=== PATIENT | female | born 1940 | race Caucasian/White ===

== ENCOUNTER 2016-10-31 11:50 | Inpatient (IN) ==
[2016-10-31 12:26] LABS: Basophils % 0.1 %; Eosinophils # 0.2 K/mcL (0.0-0.6); Eosinophils % 1.5 %; Hematocrit 32.1 % (35.3-44.9); Hemoglobin 10.8 g/dL (11.5-15.4); Immature Granulocytes % 0.5 % (0-4); Lymphocytes # 1.9 K/mcL (0.6-4.6); Lymphocytes % 19.4 %; Mean Corpuscular HGB Conc 33.6 g/dL (31.6-35.5); Mean Corpuscular Hemoglobin 30.3 pg (28.0-33.3); Mean Corpuscular Volume 90.2 fL (83.0-100.0); Mean Platelet Volume 9.2 fL (9.4-12.4); Monocytes # 0.5 K/mcL (0.0-1.3); Monocytes % 5.4 %; Neutrophils # 7.1 K/mcL (1.6-8.9); Platelet Count 207 K/mcL (140-400); Red Blood Count 3.56 M/mcL (3.82-4.97); Segmented Neutrophils % 73.1 %
[2016-10-31 12:31] LABS: INR 1.1; Prothrombin Time 11.5 Seconds (9.4-12.1)
[2016-10-31 12:33] LABS: Activated Partial Thrombo Time 26.5 Seconds (26.0-36.0)
[2016-10-31 12:49] LABS: Potassium 4.8 mEq/L (3.5-4.5)
--- NOTE | 2016-10-31 12:53 | Emergency Department Note ---
Disposition Clinical Impression: Altered mental status Disposition: Admitted As Inpatient Neuro HPI - General Chief Complaint: ED Neuro Symptoms/Deficit Stated Complaint: R side facial droop Time Seen by Provider: 10/31/16 11:54 Source: EMS Limitations: altered mental status Nursing Notes Reviewed: Yes Vital Signs Reviewed: Yes - History of Present Illness HPI Narrative: Patient presents with complaint altered mental status. Per report the son states the patient is acting normal when he left this morning for dialysis at 5: 30 AM. When he returned and 9:30 the patient was less responsive and had a weakness of the right side. EMS notes patient had a right-sided facial droop and was not responding as well. Per my examination. Patient was following commands did not have any facial droop and had weakness in the right lower extremity. Patient denies chest pain is shortness of breath. Patient is normally alert and oriented but currently is acting abnormal and agitated. Patient continued to try to get out of bed and not cooperative with staff. Patient is moving all of her limbs currently and has no facial droop currently - Related Data Home Medications: Home Medications Medication Instructions Recorded Confirmed Insulin ASPART [NovoLOG] 5 unit SQ TID 07/30/15 10/31/16 Montelukast [Singulair] 10 mg PO QPM 07/30/15 10/31/16 Topiramate [Topamax] 50 mg PO DAILY 07/30/15 10/31/16 TraZODone 50 mg PO HS PRN 07/30/15 10/31/16 Zolpidem [Ambien] 5 mg PO HS PRN 07/30/15 10/31/16 Albuterol Sulfate [Albuterol 2 puff IH Q6H PRN 09/08/16 10/31/16 Inhaler] Aripiprazole [Abilify] 2 mg PO DAILY 09/08/16 10/31/16 Atorvastatin [Lipitor] 40 mg PO HS 09/08/16 10/31/16 Clopidogrel [Plavix] 75 mg PO DAILY 09/08/16 10/31/16 Colesevelam [Welchol] 1,875 mg PO BIDWM 09/08/16 10/31/16 Esomeprazole Magnesium [Nexium] 40 mg PO BID 09/08/16 10/31/16 Gabapentin [Neurontin] 600 mg PO DAILY 09/08/16 10/31/16 Guaifenesin [Mucinex] 600 mg PO Q12H 09/08/16 10/31/16 Insulin DETEMIR [Levemir Flextouch] 30 unit SQ HS 09/08/16 10/31/16 Loratadine [Allergy Relief] 10 mg PO DAILY 09/08/16 10/31/16 Metoclopramide [Reglan] 10 mg PO QIDAC 09/08/16 10/31/16 Metoprolol [Lopressor] 25 mg PO BID 09/08/16 10/31/16 Pioglitazone HCl [Actos] 45 mg PO DAILY 09/08/16 10/31/16 Sodium Bicarbonate 650 mg PO BID 09/08/16 10/31/16 Venlafaxine HCl [Venlafaxine HCl 150 mg PO DAILY 09/08/16 10/31/16 ER] Previous Rx's Medication Instructions Recorded Aspirin 81 mg PO DAILY #90 tab.chew 11/21/15 Docusate [Colace] 100 mg PO BID #60 capsule 09/08/16 HYDROcodone/Acet 5/325 mg [[place] 1 tab PO Q4H PRN #10 tab 09/08/16 5-325 mg] Ondansetron ODT [Zofran ODT] 4 mg SL Q8HR #14 tab.rapdis 10/24/16 Allergies/Adverse Reactions: Allergies Allergy/AdvReac Type Severity Reaction Status Date / Time Iodinated Contrast Media - Allergy Anaphylaxis Verified 09/08/16 08:19 Oral and [Iodinated Contrast Media - IV Dye] codeine AdvReac Gastrointestinal Verified 09/08/16 08:19 Upset Limitations: ROS unobtainable due to patients medical condition Past Medical History - Past Medical History Source: patient, nursing notes reviewed Medical history: Reports: arthritis, asthma, CVA, diabetes, GERD, hyperlipidemia , hypertension, osteoporosis, peripheral artery disease, seizures, TIA, other Surgical history: Reports: other Psychiatric history: Reports: anxiety LICENSED CLINICAL PSYCHOLOGIST history: Reports: bilateral tubal ligation - Social History Smoking Status: Never smoker Smokeless Tobacco Status: No Alcohol use: Reports: none Drug use: Reports: none Physical Exam - General Limitations: altered mental status General appearance: alert - Head Head exam: atraumatic, normocephalic, normal inspection - Eye Eye exam: Present: normal appearance, PERRL, EOMI - ENT ENT exam: normal exam, normal oropharynx, mucous membranes moist - Neck Neck exam: Present: normal inspection, full ROM - Chest Chest inspection: Present: normal inspection, symmetric chest wall rise - Respiratory Respiratory exam: Present: normal lung sounds bilaterally - Cardiovascular Cardiovascular exam: Present: regular rate, normal rhythm, normal heart sounds - Abdominal Exam Abdominal exam: Present: soft, Non-Tender. Absent: tenderness, distention, guarding, rebound, rigidity - Extremities Exam Extremities exam: Present: normal inspection, full ROM. Absent: tenderness, pedal edema - Back Exam Back exam: Absent: tenderness, CVA tenderness (R), CVA tenderness (L) - Neurological Exam Neurological exam: Present: other (Limited secondary patient will status) - Psychiatric Psychiatric exam: Present: other (Limited secondary patient will status) - Skin Skin exam: Present: warm, dry, intact, normal color Course Vital Signs Temperature 98.3 F 10/31/16 11:54 Pulse Rate 90 10/31/16 11:54 Respiratory Rate 18 10/31/16 11:54 Blood Pressure 158/66 10/31/16 11:54 O2 Sat by Pulse Oximetry 98 10/31/16 11:54 Temperature 99.1 F 10/31/16 20:06 Pulse Rate 122 10/31/16 20:06 Respiratory Rate 20 10/31/16 20:06 Blood Pressure 149/72 10/31/16 20:06 O2 Sat by Pulse Oximetry 96 10/31/16 20:06 Oxygen Delivery Oxygen Delivery Room Air Neuro Symptoms/Deficit - Differential Diagnosis Likely: cerebrovascular accident, subarachnoid hemorrhage, transient cerebral ischemia, peripheral neuropathy - Lab Data Lab results reviewed: Yes I reviewed the patient's lab results. Result diagrams: 10/31/16 12:10 10/31/16 12:10 Lab Results 10/31/16 10/31/16 10/31/16 Range/Units 12:07 12:10 12:10 WBC 9.8 (4.3-11.1) K/mcL RBC 3.56 L (3.82-4.97) M/mcL Hgb 10.8 L (11.5-15.4) g/dL Hct 32.1 L (35.3-44.9) % MCV 90.2 (83.0-100.0) fL MCH 30.3 (28.0-33.3) pg MCHC 33.6 (31.6-35.5) g/dL RDW 13.0 (11.5-14.5) % Plt Count 207 (140-400) K/mcL MPV 9.2 L (9.4-12.4) fL Immature Gran % 0.5 (0-4) % Seg Neutrophils % 73.1 % Lymphocytes % 19.4 % Monocytes % 5.4 % Eosinophils % 1.5 % Basophils % 0.1 % Neutrophils # 7.1 (1.6-8.9) K/mcL Lymphocytes # 1.9 (0.6-4.6) K/mcL Monocytes # 0.5 (0.0-1.3) K/mcL Eosinophils # 0.2 (0.0-0.6) K/mcL Basophils # 0.0 (0.0-0.2) K/mcL PT 11.5 (9.4-12.1) Seconds INR 1.1 APTT 26.5 (26.0-36.0) Seconds Sodium (136-145) mEq/L Potassium (3.5-4.5) mEq/L Chloride (98-109) mEq/L Carbon Dioxide (19-29) mEq/L BUN (7-20) mg/dL Creatinine (0.57-1.11) mg/dL Est GFR ( Amer) (> 60) Est GFR (Non-Af Amer) (> 60) BUN/Creatinine Ratio (6-26) Glucose (70-99) mg/dL POC Glucose 231 H (58-89) Calculated Osmolality (280-300) Calcium (8.6-10.8) mg/dL Ammonia (18-72) mcmol/L Troponin I (0-0.03) ng/mL Urine Color (Yellow) Urine Clarity (Clear) Urine pH (5.0-8.0) pH Units Ur Specific [place] (1.010-1.025) Urine Protein (Neg-Trace) mg/dL Urine Glucose (UA) (Normal) mg/dL Urine Ketones (Negative) mg/dL Urine Blood (Negative) Urine Nitrite (Negative) Urine Bilirubin (Negative) Urine Urobilinogen (Normal) mg/dL Ur Leukocyte Esterase (Negative) Urine Microscopic RBC (0-3) per hpf Urine Microscopic WBC (0-3) per hpf Ur Squamous Epith Cells (None-Few) per lpf Urine Bacteria (None-Few) per hpf Hyaline Casts (None-Few) per lpf Ur Culture Indicated? (NO) 10/31/16 10/31/16 10/31/16 Range/Units 12:10 12:10 15:08 WBC (4.3-11.1) K/mcL RBC (3.82-4.97) M/mcL Hgb (11.5-15.4) g/dL Hct (35.3-44.9) % MCV (83.0-100.0) fL MCH (28.0-33.3) pg MCHC (31.6-35.5) g/dL RDW (11.5-14.5) % Plt Count (140-400) K/mcL MPV (9.4-12.4) fL Immature Gran % (0-4) % Seg Neutrophils % % Lymphocytes % % Monocytes % % Eosinophils % % Basophils % % Neutrophils # (1.6-8.9) K/mcL Lymphocytes # (0.6-4.6) K/mcL Monocytes # (0.0-1.3) K/mcL Eosinophils # (0.0-0.6) K/mcL Basophils # (0.0-0.2) K/mcL PT (9.4-12.1) Seconds INR APTT (26.0-36.0) Seconds Sodium 136 (136-145) mEq/L Potassium 4.8 H (3.5-4.5) mEq/L Chloride 106 (98-109) mEq/L Carbon Dioxide 19 (19-29) mEq/L BUN 30 H (7-20) mg/dL Creatinine 1.93 H (0.57-1.11) mg/dL Est GFR ( Amer) 31 L (> 60) Est GFR (Non-Af Amer) 25 L (> 60) BUN/Creatinine Ratio 16 (6-26) Glucose 213 H (70-99) mg/dL POC Glucose (58-89) Calculated Osmolality 295 (280-300) Calcium 9.0 (8.6-10.8) mg/dL Ammonia (18-72) mcmol/L Troponin I 0.00 (0-0.03) ng/mL Urine Color Yellow (Yellow) Urine Clarity Cloudy A (Clear) Urine pH 5.0 (5.0-8.0) pH Units Ur Specific [place] 1.024 (1.010-1.025) Urine Protein >=1000 H (Neg-Trace) mg/dL Urine Glucose (UA) 100 H (Normal) mg/dL Urine Ketones Negative (Negative) mg/dL Urine Blood Moderate H (Negative) Urine Nitrite Negative (Negative) Urine Bilirubin Negative (Negative) Urine Urobilinogen Normal (Normal) mg/dL Ur Leukocyte Esterase Negative (Negative) Urine Microscopic RBC 0-3 (0-3) per hpf Urine Microscopic WBC 0-3 (0-3) per hpf Ur Squamous Epith Cells Many H (None-Few) per lpf Urine Bacteria None Seen (None-Few) per hpf Hyaline Casts Few (None-Few) per lpf Ur Culture Indicated? NO (NO) 10/31/16 Range/Units 19:05 WBC (4.3-11.1) K/mcL RBC (3.82-4.97) M/mcL Hgb (11.5-15.4) g/dL Hct (35.3-44.9) % MCV (83.0-100.0) fL MCH (28.0-33.3) pg MCHC (31.6-35.5) g/dL RDW (11.5-14.5) % Plt Count (140-400) K/mcL MPV (9.4-12.4) fL Immature Gran % (0-4) % Seg Neutrophils % % Lymphocytes % % Monocytes % % Eosinophils % % Basophils % % Neutrophils # (1.6-8.9) K/mcL Lymphocytes # (0.6-4.6) K/mcL Monocytes # (0.0-1.3) K/mcL Eosinophils # (0.0-0.6) K/mcL Basophils # (0.0-0.2) K/mcL PT (9.4-12.1) Seconds INR APTT (26.0-36.0) Seconds Sodium (136-145) mEq/L Potassium (3.5-4.5) mEq/L Chloride (98-109) mEq/L Carbon Dioxide (19-29) mEq/L BUN (7-20) mg/dL Creatinine (0.57-1.11) mg/dL Est GFR ( Amer) (> 60) Est GFR (Non-Af Amer) (> 60) BUN/Creatinine Ratio (6-26) Glucose (70-99) mg/dL POC Glucose (58-89) Calculated Osmolality (280-300) Calcium (8.6-10.8) mg/dL Ammonia 32 (18-72) mcmol/L Troponin I (0-0.03) ng/mL Urine Color (Yellow) Urine Clarity (Clear) Urine pH (5.0-8.0) pH Units Ur Specific [place] (1.010-1.025) Urine Protein (Neg-Trace) mg/dL Urine Glucose (UA) (Normal) mg/dL Urine Ketones (Negative) mg/dL Urine Blood (Negative) Urine Nitrite (Negative) Urine Bilirubin (Negative) Urine Urobilinogen (Normal) mg/dL Ur Leukocyte Esterase (Negative) Urine Microscopic RBC (0-3) per hpf Urine Microscopic WBC (0-3) per hpf Ur Squamous Epith Cells (None-Few) per lpf Urine Bacteria (None-Few) per hpf Hyaline Casts (None-Few) per lpf Ur Culture Indicated? (NO) - Radiology Data Radiology results reviewed: Yes I reviewed the patient's radiology results. Head CT 10/31/16 11:54 IMPRESSION: Severely limited by motion artifacts. No acute intracranial abnormality. Further evaluation with MRI brain is recommended. Mild parenchymal volume loss. Mild chronic microvascular disease. D/ / Usama Oconnell MD / Usama Oconnell MD Interpreting Provider: Usama Oconnell MD Chest X-Ray 10/31/16 12:54 IMPRESSION: No acute cardiopulmonary process. D/ / 10/31/2016 13:41:20 Demarco Conley MD / Swati Cedeno Interpreting Provider: Demarco Conley MD - EKG Data EKG shows normal: sinus rhythm Rate: normal Rhythm: NSR TPA Checklist - LKW: 3-4.5 hrs Add. Contraindications Patient/family understanding: The patient/family members have been counseled and understood the risk, benefit , and alternatives of treatment.
[2016-10-31] MEDS ORDERED: Haloperidol Lactate 5 MG/ML VIAL IM ONE (13:46)
[2016-10-31] MEDS ORDERED: *HR* LORazepam 2 MG/ML VIAL IVP ONE ×2 (14:53→18:53)
[2016-10-31 15:16] LABS: Bilirubin,Urine Negative (Negative); Blood,Urine Moderate (Negative); Clarity,Urine Cloudy (Clear); Color,Urine Yellow (Yellow); Glucose,Urine (UA) 100 mg/dL (Normal); Ketones,Urine Negative (Negative); Leukocyte Esterase,Urine Negative (Negative); Nitrite,Urine Negative (Negative); Protein,Urine >=1000 mg/dL (Neg-Trace); Specific Gravity,Urine 1.024 (1.010-1.025); Urobilinogen,Urine Normal (Normal)
[2016-10-31 15:18] LABS: Bacteria,Urine None Seen per hpf (None-Few); Hyaline Casts,Urine Few per lpf (None-Few); RBC,Urine 0-3 per hpf (0-3); Squamous Epithelial Cell,Urine Many per lpf (None-Few); WBC,Urine 0-3 per hpf (0-3)
[2016-10-31] MEDS ORDERED: *HR* Dextrose 50 % in Water (Syg) 50 ML SYRINGE IVP PRN (18:22)
[2016-10-31] MEDS ORDERED: Dextrose Gel 15 GM PO PRN ×2 (18:22)
[2016-10-31] MEDS ORDERED: D5% in Water 1,000 ML IVC PRN (18:22)
[2016-10-31] MEDS ORDERED: 0.9 % Sodium Chloride 1,000 ML IVC SCH (18:30)
[2016-10-31] MEDS ORDERED: Haloperidol Lactate 5 MG/ML VIAL IVP ONE (18:54)
[2016-10-31 22:28] LABS: Albumin/Globulin Ratio 1.1 (1.1-2.2); Bilirubin,Direct 0.1 mg/dL (0.0-0.5); Bilirubin,Indirect 0.1 mg/dL (0.0-1.2); Bilirubin,Total 0.2 mg/dL (0.2-1.2); Globulin 3.7 g/dL (2.4-3.5); Magnesium 1.4 mg/dL (1.6-2.6); Total Protein 7.7 g/dL (6.0-8.3)
--- NOTE | 2016-10-31 23:53 | Internal Med History&Physical ---
Date of Encounter: 10/31/16 Time of Encounter: 23:51 Assessment and Plan (1) TIA (transient ischemic attack) Current visit: Yes Status: Acute The patient was noted to have right facial droop and right-sided weakness at home. However that was not noted in the emergency department. MRI of the brain is negative for acute infarct. Echocardiogram and carotid Dopplers requested. Check lipid panel. Neurology consultation; PT / speech tehrapy eval Qualifiers: Transient cerebral ischemia type: unspecified Qualified Code(s): G45.9 - Transient cerebral ischemic attack, unspecified (2) Agitation Current visit: Yes Status: Acute Pt was treated with haloperidol. Ammonia level is normal. Sitter in place. Monitor. Neurology consult (3) CKD (chronic kidney disease) Current visit: Yes Status: Chronic Monitor renal function. supportive care. 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 On IV fluids. If not improving, consider further w/u (6) DVT prophylaxis Current visit: Yes Status: Acute SubQ Heparin Internal Medicine - H&P: HPI Chief complaint: confusion Admitted From: Emergency Dept Plans for Post Hospital Care: Home History of present illness: Ms. Rain is a 75 year old female With Past medical history significant for CVA , diabetes, GERD, hyperlipidemia, hypertension, osteoporosis, peripheral artery disease, seizures - Patient presents with complaint altered mental status. Pt received lorazepam and haloperidol for agitation, late in the evening and pt is somnolent and is not able to give nay clinical details. I have reviewed the details from emergency department Apparently, the patient was acting normal when the son left this morning for dialysis at 5:30 AM. When he returned at 9: 30, the patient was less responsive and had a weakness of the right side. Apparently, per the EMS notes patient had a right-sided facial droop and was not responding as well. Per the Er physicians exam, there was no facial droop or weakness in the right lower extremity. CT head done in the ER reported motion artefact; no acute intracranial abnormality. Patient is admitted to the hospitalist service for further workup and management. Past Med Surg Social Fam HX - Past Medical History Medical history: arthritis, asthma, CVA, diabetes, GERD, hyperlipidemia, hypertension, osteoporosis, peripheral artery disease, seizures, TIA, other Psychiatric history: anxiety - Past Surgical History Surgical History: other - Social History Smoking Status: Never smoker Smokeless Tobacco Status: No Alcohol use: none Drug use: none - Family History Father Living Status: Hx Family Cardiac Disorders: Yes Brother Living Status: Sister Living Status: Hx Family Cardiac Disorders: Yes Mother Living Status: Hx Family Cardiac Disorders: Yes Hx Family Cancer: Yes Internal Medicine - H&P: Meds Insulin ASPART [NovoLOG] 5 unit SQ TID 07/30/15 [History] Montelukast [Singulair] 10 mg PO QPM 07/30/15 [History] Topiramate [Topamax] 50 mg PO DAILY 07/30/15 [History] TraZODone 50 mg PO HS PRN 07/30/15 [History] Zolpidem [Ambien] 5 mg PO HS PRN 07/30/15 [History] Aspirin 81 mg PO DAILY #90 tab.chew 11/21/15 [Rx] Albuterol Sulfate [Albuterol Inhaler] 2 puff IH Q6H PRN 09/08/16 [History] Aripiprazole [Abilify] 2 mg PO DAILY 09/08/16 [History] Atorvastatin [Lipitor] 40 mg PO HS 09/08/16 [History] Clopidogrel [Plavix] 75 mg PO DAILY 09/08/16 [History] Colesevelam [Welchol] 1,875 mg PO BIDWM 09/08/16 [History] Docusate [Colace] 100 mg PO BID #60 capsule 09/08/16 [Rx] Esomeprazole Magnesium [Nexium] 40 mg PO BID 09/08/16 [History] Gabapentin [Neurontin] 600 mg PO DAILY 09/08/16 [History] Guaifenesin [Mucinex] 600 mg PO Q12H 09/08/16 [History] HYDROcodone/Acet 5/325 mg [[place] 5-325 mg] 1 tab PO Q4H PRN #10 tab 09/08/16 [Rx ] Insulin DETEMIR [Levemir Flextouch] 30 unit SQ HS 09/08/16 [History] Loratadine [Allergy Relief] 10 mg PO DAILY 09/08/16 [History] Metoclopramide [Reglan] 10 mg PO QIDAC 09/08/16 [History] Metoprolol [Lopressor] 25 mg PO BID 09/08/16 [History] Pioglitazone HCl [Actos] 45 mg PO DAILY 09/08/16 [History] Sodium Bicarbonate 650 mg PO BID 09/08/16 [History] Venlafaxine HCl [Venlafaxine HCl ER] 150 mg PO DAILY 09/08/16 [History] Ondansetron ODT [Zofran ODT] 4 mg SL Q8HR #14 tab.rapdis 10/24/16 [Rx] Allergies Iodinated Contrast Media - Oral and [Iodinated Contrast Media - IV Dye] Allergy (Verified 09/08/16 08:19) Anaphylaxis codeine Adverse Reaction (Verified 09/08/16 08:19) Gastrointestinal Upset ROS unobtainable: due to mental status - Constitutional Vitals: Temp Pulse Resp BP Pulse Ox 98.7 F 127 20 149/64 97 10/31/16 23:33 10/31/16 23:33 10/31/16 23:33 10/31/16 23:33 10/31/16 23:33 Exam: General: Somnolent, unable to follow commands. HEENT: No conjunctival palor or scleral icterus. Pupils normal size, reacting to light Neck: No obvious neck swellings Lungs: Clear to auscultation Cardiac: Regular rate and rhythm. No significant murmurs Abdomen: Soft, non tender. Bowel sounds present Genitourinary: werner catheter present Neurological: Somnolent. Not able to follow commands. Able to spontaneously move the extremities. Psych: Somnolent Extremities: Minimal leg edema Skin: No generalized rash Internal Med - H&P Results - Labs CBC & Chem 7: 10/31/16 12:10 11/01/16 07:10 Labs: Liver Function 10/31/16 Range/Units 19:05 Total Bilirubin 0.2 (0.2-1.2) mg/dL Direct Bilirubin 0.1 (0.0-0.5) mg/dL AST 26 (5-34) Units/L ALT 24 (0-55) Units/L Alkaline Phosphatase 93 (38-126) Units/L Albumin 4.0 (3.5-5.0) g/dL - EKG Data -: EKG Interpreted by Myself EKG shows normal: sinus rhythm Rate: tachycardia - Impressions ITS Impressions ITS Impressions Head CT 10/31/16 11:54 IMPRESSION: Severely limited by motion artifacts. No acute intracranial abnormality. Further evaluation with MRI brain is recommended. Mild parenchymal volume loss. Mild chronic microvascular disease. D/ / Usama Oconnell MD / Usama Oconnell MD Interpreting Provider: Usama Oconnell MD Chest X-Ray 10/31/16 12:54 IMPRESSION: No acute cardiopulmonary process. D/ / 10/31/2016 13:41:20 Demarco Conley MD / Swati Cedeno Interpreting Provider: Demarco Conley MD Brain MRI 10/31/16 19:26 IMPRESSION: No acute infarct. D/ / Adán Montano MD / Adán Montano MD Interpreting Provider: Adán Montano MD
[2016-11-01] MEDS ORDERED: Magnesium Sulfate 2 GM in D5% in Water 100 ML IVPB ONE (00:01)
[2016-11-01] MEDS ORDERED: traZODone 50 MG TABLET PO PRN (00:08)
[2016-11-01] MEDS: Insulin LISPRO 300 UNITS/3 ML VIAL SQ SCH ×4 (00:47→17:54)
[2016-11-01] MEDS: 0.9 % Sodium Chloride 1,000 ML IVC SCH (00:49)
[2016-11-01] MEDS: *HR* Heparin 5,000 UNIT/ML VIAL SQ SCH ×3 (06:38→22:59)
--- NOTE | 2016-11-01 06:45 | Carotid Imaging Report ---
Carotid Duplex Patient Name:Mamta Rain Order Number:[id number] Procedure Date:10/31/2016 Date:1940ge:75 yrs Gender:Female Lt BP:149 / 72 mmHg Rt.BP:149 / 72 mmHgHeart Rate: Location:[facility] Room #: 2A32 Peripatologist:Margi Briceño Referring MD:Estefania Lynne DO engineering design supervisor:Demarco Trevizo MD Reading MD:Giancarlo Hernandez MD Primary Indications:altered mental status, concern for stroke Risk Factors Yes/No Hypertension Hypercholesterolemia Diabetes Hx of CVA Impressions: The right common carotid is patent. Unable to assess the right internal carotid or left carotid arteries due to patient motion. Recommendations: Consider imaging with CT angiogram or MR angiogram if clinically indicated. Carotid Results Right PSV EDV Assessment Proximal CCA 91 12 Normal Mid CCA 89 14 Normal Distal CCA 84 14 Normal Bifurcation 89 17 Normal ECA 113 10 Normal Ratio's Updated by Giancarlo Hernandez MD on 11/01/2016 6:39:03 AM electronically signed on 11/01/2016 6:39:20 AM with status of Final
[2016-11-01 07:51] LABS: Amphetamine Screen,Urine Negative ng/mL (Cutoff=1000); Barbiturate Screen,Urine Negative ng/mL (Cutoff=200); Benzodiazepines Screen,Urine Negative ng/mL (Cutoff=200); Cannabinoid Screen,Urine Negative ng/mL (Cutoff = 50); Cocaine Screen,Urine Negative ng/mL (Cutoff= 300); Opiate Screen,Urine Negative ng/mL (Cutoff=300); Phencyclidine Screen,Urine Negative ng/mL (Cutoff=25)
[2016-11-01 08:02] LABS: Calcium 9.1 mg/dL (8.6-10.8); Magnesium 1.9 mg/dL (1.6-2.6); Potassium 4.2 mEq/L (3.5-4.5)
[2016-11-01] MEDS: Acetaminophen 650 MG RECTAL SUPP RC PRN ×2 (08:11→17:55)
--- NOTE | 2016-11-01 08:13 | ECHO - Doppler Report ---
Echocardiogram Name: Mamta Rain Date of Study: 10/31/2016 Date: 1940 Ht: 66.0 in Medical Record#: [id number] Age: 75 Wt: 237.0 lb Gender: Female BSA: 2.15 Order #: [id number] Location: [facility] Room #: [id number] Reading Physician: Mandeep Sumner MD, [facility] Cheesemaking Laborer: Margi Briceño Ordering Physician: Estefania Lynne DO Primary Physician: Demarco Trevizo MD Indications: Altered mental status, Concern for stroke Impressions: Suboptimal quality due to clinical status. Patient was constantly moving around during the study. Sinus tachycardia. Heart rate was in the 110's to 120's during this study. Normal left ventricular systolic function, LVEF 70-75%. Normal right ventricular size and function. No significant valvular dysfunction. Left Ventricular Wall Motion: Rest Echo Findings All wall segments showed normal motion. Findings: Study Quality * Suboptimal quality due to clinical status. Patient was constantly moving around during the study. ECG Findings * Sinus tachycardia. Heart rate was in the 110's to 120's during this study. Left Ventricle * Normal left ventricular systolic function, LVEF 70-75%. * Normal LV chamber size and wall thickness. * Indeterminate diastolic function. Right Ventricle * Normal right ventricular size and function. Left Atrium * Normal left atrial size. Right Atrium * Normal right atrial size. Aortic Valve * Aortic valve not well visualized. * Normal aortic valve function. Mitral Valve * Normal mitral valve structure and function. Pulmonic Valve * Pulmonic valve not well visualized. * Normal pulmonic valve function. Tricuspid Valve * Tricuspid valve not well visualized. * Normal tricuspid valve function. * Unable to estimate RVSP due to lack of TR jet. Aorta * Normally sized aortic root. Pericardium * There is no pericardial effusion present. IVC * The IVC is not well evaluated. History Hypertension Diabetes Hypercholesteremia Family History of CAD 11/21/2015 a Previous Echo was performed. Measurements: BP: 149/ 72 2D Normal Values RVIDd: 2.60 cm IVSd: .90 cm 0.6 - 1.0 cm LVIDd: 4.50 cm 3.7 - 5.6 cm LVPWd: 1.00 cm 0.6 - 1.1 cm LVIDs: 2.70 cm 1.5 - 3.6 cm AO: 2.90 cm < 4.0 cm %FS: 40.00 cm >25 % LA volume: 36 Updated by Mandeep Sumner MD, [facility] on 11/01/2016 8:06:54 AM electronically signed on 11/01/2016 8:07:40 AM with status of Final Wall Motion [place]: 1=Normal, 2=Hypokinesis, 3=Akinesis, 4=Dyskinesis, 5=Aneurysmal, 6=Hyperkinetic, X=Not Visualized (Blank)=Missing
[2016-11-01] MEDS ORDERED: ARIPiprazole 2 MG TABLET PO SCH (09:00)
[2016-11-01] MEDS ORDERED: Aspirin 81 MG TAB.CHEW PO SCH (09:00)
--- NOTE | 2016-11-01 10:16 | Internal Med Progress Note ---
<Tammy Lynne - Last Filed: 11/01/16 13:35> Date of Encounter: 11/01/16 Time of Encounter: 10:11 - Assessment and plan (1) Fever Current Visit: Yes Status: Acute Assessment and plan: Patient febrile this morning to 102.2F Chest xray with no sign of focal process Urinalysis negative Will obtain blood cultures x 2 Will give toradol IM for fever Concern for underlying BODY PIERCER infectious process given sudden onset of fever and mental status changes. Qualifiers: Fever type: unspecified Qualified Code(s): R50.9 - Fever, unspecified (2) Altered mental status Current Visit: Yes Status: Acute Assessment and plan: Unclear etiology. Differential includes infectious vs bacteremia vs status epilepticus vs serotonin syndrome vs other CT head negative MRI head negative No evidence of increased ammonia or liver dysfunction No leukocytosis No evidence of infection on chest xray or urinalysis Carotid doppler limited due to patient motion Echocardiogram appears normal however limited by motion artifact. Given fever, concern for underlying BODY PIERCER infection. Will treat empirically with vancomycin, ampicillin, ceftriaxone and acyclovir. Neurology consulted, plan for EEG and lumbar puncture Will place patient in soft restraints Qualifiers: Altered mental status type: unspecified Qualified Code(s): R41.82 - Altered mental status, unspecified (3) Agitation Current Visit: Yes Status: Acute Assessment and plan: Treatment as per altered mental status. (4) Diabetes mellitus Current Visit: Yes Status: Chronic Assessment and plan: Chronic. Accucheck every 6 hours while NPO Low dose sliding scale with novolog every 6 hours while NPO Will plan to transition to basal insulin with meal time dosing once patient is able to tolerate oral intake Qualifiers: Diabetes mellitus type: type 2 Diabetes mellitus complication status: with unspecified complications Diabetes mellitus longterm insulin use: with longterm use Qualified Code(s): E11.8 - Type 2 diabetes mellitus with unspecified complications; Z79.4 - MCC (current) use of insulin (5) CKD (chronic kidney disease) stage 3, GFR 30-59 ml/min Current Visit: No Status: Chronic Assessment and plan: Chronic. BUN and creatinine stable Continue to monitor (6) History of CVA (cerebrovascular accident) Current Visit: No Status: Chronic Assessment and plan: History of prior CVAin April 2016. No residual deficits per family. Was treated at [facility]. (7) Seizure disorder Current Visit: No Status: Chronic Assessment and plan: Chronic. Neurology consulted. Appreciate input and expertise. Planning on EEG. Continue home medications. - Subjective Interval history: Patient seen and examined this morning. Due to patient's mental status, information gathered from chart review and who was present at bedside. Per , patient was her normal self when he left for work yesterday at 8: 30am. Their son who lives with them returned from his dialysis session around 11:30 am and found the patient to be altered. Per , son informed him that the patient was speaking in garbled words and was very agitated and was moving around house. states he does not know what happened to her. He reports that she acted similarly prior to her previous stroke in April 2015 , but that was accompanied by left sided weakness and tingling. He relates that at that presentation she was given tPA here in [place] and transferred to [facility]. He states that while at they were informed that the tPA was only successful in breaking up part of the clot but that the patient still had a portion of the clot remaining and they were watching it. states that son did not inform him of any ambulation difficulty of facial droop involving the patient when he arrived back home. states the patient was ill last week, she was coughing, had a runny nose, fever, diarrhea and emesis. He reports that he brought her into the emergency room last week and they were here for 5 hours during which patient received fluids. He states that after that time they returned home and patient returned to her former self. He relates that patient had a previous stroke resulting in a rehab stay, deneis any residual deficits from the stroke. He relates that the patient is able to ambulate around the home without any difficulty but does use a walker when out in the community if walking for longer distances. He does state that the patient is only allergic to iodinated contrast and she does not have any difficulties with non-iodinated contrast. There are no other concerns at this time. - Constitutional Vitals: Temp Pulse Resp BP Pulse Ox 102.6 F H 116 24 180/69 94 L 11/01/16 07:23 11/01/16 07:23 11/01/16 07:23 11/01/16 07:23 11/01/16 07:23 General appearance: Present: A&O X 0, no acute distress Exam: moving legs around in bed - Head Head exam: Present: atraumatic, normocephalic - Eye Eye exam: Absent: conjunctival injection Additional comments: eyes with gaze deviated to left - ENT ENT exam: Present: mucous membranes moist, normal external ear exam - Neck Neck exam general surgery: Present: supple, trachea midline. Absent: tenderness , nuchal rigidity - Respiratory Respiratory exam: Present: CTAB. Absent: rales, rhonchi, stridor, wheezes - Cardiovascular Cardiovascular exam: Present: +S1, +S2, tachycardia. Absent: clicks, diastolic murmur, gallop, rubs, systolic murmur - GI/Abdominal GI/Abdominal exam: Present: normal bowel sounds, soft. Absent: distended, guarding, rebound, tenderness - Extremities Exam Extremities exam: Present: normal capillary refill. Absent: pedal edema - Neurological Exam Additional comments: decreased tone in right upper extremity compared to left upper extremity on passive movement - Expanded Neurological Exam Speech: Present: garbled Internal Medicine: Result - Labs CBC & Chem 7: 11/01/16 07:10 11/01/16 07:10 Labs: BMP 11/01/16 07:10 Sodium 132 L Potassium 4.2 Chloride 103 Carbon Dioxide 17 L BUN 25 H Creatinine 1.88 H Glucose 285 H Calcium 9.1 Liver Function 10/31/16 Range/Units 19:05 Total Bilirubin 0.2 (0.2-1.2) mg/dL Direct Bilirubin 0.1 (0.0-0.5) mg/dL AST 26 (5-34) Units/L ALT 24 (0-55) Units/L Alkaline Phosphatase 93 (38-126) Units/L Albumin 4.0 (3.5-5.0) g/dL - ABG Interpretation ABG results: PT/INR, D-dimer PT 11.5 Seconds (9.4-12.1) 10/31/16 12:10 - Impressions Impressions Brain MRI 10/31/16 19:26 IMPRESSION: No acute infarct. D/ / Adán Montano MD / Adán Montano MD Interpreting Provider: Adán Montano MD Consult Discharge Plan - Plan Referrals: Demarco Trevizo MD [Primary Care Provider] - <FaisalNiraj A - Last Filed: 11/01/16 17:08> - Assessment and plan (1) Herpes encephalitis Current Visit: Yes Status: Suspected Assessment and plan: LP results pending. On IV Acyclovir and abx. (2) Acute metabolic encephalopathy Current Visit: Yes Status: Acute (3) Seizure disorder Current Visit: No Status: Chronic (4) Agitation Current Visit: Yes Status: Acute (5) Sinus tachycardia Current Visit: Yes Status: Acute (6) CKD (chronic kidney disease) Current Visit: Yes Status: Chronic Qualifiers: Chronic kidney disease stage: stage 4 (severe) Qualified Code(s): N18.4 - Chronic kidney disease, stage 4 (severe) (7) Diabetes Current Visit: No Status: Acute Qualifiers: Diabetes mellitus type: type 2 Diabetes mellitus complication status: with kidney complications Diabetes mellitus complication detail: with chronic kidney disease Diabetes mellitus terminal operations manager insulin use: with terminal operations manager use Chronic kidney disease stage: stage 4 (severe) Qualified Code(s): E11.22 - Type 2 diabetes mellitus with diabetic chronic kidney disease; N18.4 - Chronic kidney disease, stage 4 (severe); Z79.4 - MCC (current) use of insulin - Constitutional Vitals: Temp Pulse Resp BP Pulse Ox 102.2 F H 125 24 162/83 94 L 11/01/16 10:26 11/01/16 10:26 11/01/16 10:26 11/01/16 10:26 11/01/16 10:26 Internal Medicine: Result - Labs CBC & Chem 7: 11/01/16 07:10 11/01/16 07:10 Labs: Short CBC 11/01/16 Range/Units 07:10 WBC 10.5 (4.3-11.1) K/mcL Hgb 10.4 L (11.5-15.4) g/dL Hct 29.9 L (35.3-44.9) % Plt Count 197 (140-400) K/mcL BMP 11/01/16 07:10 Sodium 132 L Potassium 4.2 Chloride 103 Carbon Dioxide 17 L BUN 25 H Creatinine 1.88 H Glucose 285 H Calcium 9.1 Liver Function 10/31/16 Range/Units 19:05 Total Bilirubin 0.2 (0.2-1.2) mg/dL Direct Bilirubin 0.1 (0.0-0.5) mg/dL AST 26 (5-34) Units/L ALT 24 (0-55) Units/L Alkaline Phosphatase 93 (38-126) Units/L Albumin 4.0 (3.5-5.0) g/dL - ABG Interpretation ABG results: PT/INR, D-dimer PT 11.5 Seconds (9.4-12.1) 10/31/16 12:10 - Impressions Impressions Brain MRI 10/31/16 19:26 IMPRESSION: No acute infarct. D/ / Adán Montano MD / Adán Montano MD Interpreting Provider: Adán Montano MD Chest X-Ray 11/01/16 13:08 IMPRESSION: Placement of right IJ central venous catheter with tip in the SVC. No pneumothorax. Otherwise stable exam without evidence for acute cardiopulmonary process. D/ / 11/01/2016 13:28:36 Ubaldo Spaulding MD / lito Interpreting Provider: Ubaldo Spaulding MD - Attending Attestation I examined this patient and my medical decision-making was reviewed with the Resident Physician on 11/01/16. I agree with the documented findings, disposition and treatment plan as described except to the extent set forth below. Ms. Rain is currently admitted for acute mental status change. She is high risk due to potential for worsening neurologic status. Ms. Rain is still very confused and agitated. She has developed a temperature greater than 102 this AM. ? nuchal rigidity. She can give us no further history. Exam Alert but restless and agitated. Heart tachy and regular Lungs clear follows no commands. I/P 1. Acute metabolic encephalopathy 2. 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
[2016-11-01] MEDS: Gabapentin 300 MG CAPSULE PO SCH (10:19)
[2016-11-01] MEDS: Venlafaxine XR (24 HR) 150 MG CAP.ER.24H PO SCH (10:19)
[2016-11-01] MEDS: Topiramate 25 MG TABLET PO SCH (10:19)
[2016-11-01 10:24] LABS: Hematocrit 29.9 % (35.3-44.9); Hemoglobin 10.4 g/dL (11.5-15.4); Mean Corpuscular HGB Conc 34.8 g/dL (31.6-35.5); Mean Corpuscular Hemoglobin 30.6 pg (28.0-33.3); Mean Corpuscular Volume 87.9 fL (83.0-100.0); Mean Platelet Volume 9.7 fL (9.4-12.4); Platelet Count 197 K/mcL (140-400); Red Cell Distribution Width 13.2 % (11.5-14.5)
[2016-11-01] MEDS ORDERED: Ketorolac 30 MG/ML VIAL IM ONE (10:44)
[2016-11-01] MEDS ORDERED: *HR* LORazepam 2 MG/ML VIAL IVP ONE ×2 (11:06→13:43)
[2016-11-01] MEDS ORDERED: *HR* LORazepam 2 MG/ML VIAL IM STA (11:18)
[2016-11-01] MEDS ORDERED: Haloperidol Lactate 5 MG/ML VIAL IM ONE (11:40)
[2016-11-01] MEDS ORDERED: Vancomycin 2,000 MG in D5% in Water 250 ML IVPB ONE (12:30)
--- NOTE | 2016-11-01 12:52 | Neurology - Consult Note ---
Date of Encounter: 11/01/16 Time of Encounter: 11:47 Assessment and Plan (1) Altered mental status Current Visit: Yes Status: Acute It is my understanding that prior to these hospitalizations patient's mental status was normal. She now has lethargy and agitation with apparent evidence of left cerebral hemispheric dysfunction. The MRI scan does reveal fairly severe chronic ischemic white matter changes however no evidence of cortical infarction or acute or chronic was present. In this scenario given her elevated temperament concerned about the possibility of herpes encephalitis. This patient however currently has no IV access. She will need to be sedated before I can perform a lumbar puncture. And we will also start empiric antibiotics as soon as IV access is obtained. I will also obtain an EEG. Further recommendations will be made pending the EEG study. I anticipate we will be starting empiric acyclovir, Rocephin, and ampicillin. The documentation in the history of HPI and plan were at least partially created by [employer] voice recognition technology by Dr. Burgess. Errors in grammar, wording or other phrases may exist. If errors are found after the documentation signed, they will be addressed individually in the addendum section of this document when appropriate. Qualifiers: Altered mental status type: unspecified Qualified Code(s): R41.82 - Altered mental status, unspecified History of Present Illness HPI: Ms. Rain is a 75 year old female who was seen and examined at the request of the hospitalist team regarding acute mental status changes along with elevated temperature. Her mental status is alert and oriented and able to care for herself. Apparently on the morning of admission which was 10/31/16, according to her son when he left the home that morning to go for his dialysis treatment at about 5:30 AM she was normal. When he returned at about 9:30 she seemed to have some right-sided weakness and sided facial droop and seemed to be somewhat lethargic. Currently she does have a left gaze preference and she speaks with garbled speech. However she is thrashing around in the bed. She does have an axillary temperature 102.6., White Blood cell counts are not elevated. MRI scan of the brain does not reveal an obvious left hemispheric lesion. There is no left temporal lobe enhancement. Sodium is 132 potassium 4.2 chloride 103, carbon dioxide 19-year-old woman elevated at 25 creatinine elevated at 1.88. Glucose is elevated at 285. AST and ALT are both normal. Urinalysis finds elevated protein and greater than 1000 glucose was also elevated at 100 blood was moderately high nitrates were negative leukocytes esterase negative WBCs and RBCs were negative. Many squamous epithelial cells however were present. Urine tox screen was negative as well. Past Med Surg Social Fam HX - Past Medical History Medical history: arthritis, asthma, CVA, diabetes, GERD, hyperlipidemia, hypertension, osteoporosis, peripheral artery disease, seizures, TIA, other Psychiatric history: anxiety - Past Surgical History Surgical History: other - Social History Smoking Status: Never smoker Smokeless Tobacco Status: No Alcohol use: none Drug use: none - Family History Father Living Status: Hx Family Cardiac Disorders: Yes Brother Living Status: Sister Living Status: Hx Family Cardiac Disorders: Yes Mother Living Status: Hx Family Cardiac Disorders: Yes Hx Family Cancer: Yes Medications and Allergies Insulin ASPART [NovoLOG] 5 unit SQ TID 07/30/15 [History] Montelukast [Singulair] 10 mg PO QPM 07/30/15 [History] Topiramate [Topamax] 50 mg PO DAILY 07/30/15 [History] TraZODone 50 mg PO HS PRN 07/30/15 [History] Zolpidem [Ambien] 5 mg PO HS PRN 07/30/15 [History] Aspirin 81 mg PO DAILY #90 tab.chew 11/21/15 [Rx] Albuterol Sulfate [Albuterol Inhaler] 2 puff IH Q6H PRN 09/08/16 [History] Aripiprazole [Abilify] 2 mg PO DAILY 09/08/16 [History] Atorvastatin [Lipitor] 40 mg PO HS 09/08/16 [History] Clopidogrel [Plavix] 75 mg PO DAILY 09/08/16 [History] Colesevelam [Welchol] 1,875 mg PO BIDWM 09/08/16 [History] Docusate [Colace] 100 mg PO BID #60 capsule 09/08/16 [Rx] Esomeprazole Magnesium [Nexium] 40 mg PO BID 09/08/16 [History] Gabapentin [Neurontin] 600 mg PO DAILY 09/08/16 [History] Guaifenesin [Mucinex] 600 mg PO Q12H 09/08/16 [History] HYDROcodone/Acet 5/325 mg [[place] 5-325 mg] 1 tab PO Q4H PRN #10 tab 09/08/16 [Rx ] Insulin DETEMIR [Levemir Flextouch] 30 unit SQ HS 09/08/16 [History] Loratadine [Allergy Relief] 10 mg PO DAILY 09/08/16 [History] Metoclopramide [Reglan] 10 mg PO QIDAC 09/08/16 [History] Metoprolol [Lopressor] 25 mg PO BID 09/08/16 [History] Pioglitazone HCl [Actos] 45 mg PO DAILY 09/08/16 [History] Sodium Bicarbonate 650 mg PO BID 09/08/16 [History] Venlafaxine HCl [Venlafaxine HCl ER] 150 mg PO DAILY 09/08/16 [History] Ondansetron ODT [Zofran ODT] 4 mg SL Q8HR #14 tab.rapdis 10/24/16 [Rx] Allergies Iodinated Contrast Media - Oral and [Iodinated Contrast Media - IV Dye] Allergy (Verified 09/08/16 08:19) Anaphylaxis codeine Adverse Reaction (Verified 09/08/16 08:19) Gastrointestinal Upset ROS unobtainable: due to mental status All Systems: A 10-system review of systems was performed and is negative for pertinent findings except as documented above in the HPI. Physical Examination - Vital Signs Vital Signs: Initial Vital Signs Temp Pulse Resp BP Pulse Ox 98.3 F 90 18 158/66 98 10/31/16 11:54 10/31/16 11:54 10/31/16 11:54 10/31/16 11:54 10/31/16 11:54 - Exam Exam: Neurologic examination finds this patient to be awake and agitated. She is unable to follow commands she does not make eye contact she is moving around and comfortably. She does seem to have a left gaze preference. Speech is garbled. She is not following commands or answering questions. Cranial nerve exam finds her pupils are equal and reactive, she does have a left gaze preference. At this time I see no facial asymmetry present. Motor exam finds that she is moving all 4 extremities. The movements appear to be thrashing. I see no clonus, myoclonus, generalized tonic-clonic seizure activity, or chorea. I see no tremors. Sensory examination is difficult to assess and the patient was confused. Deep tendon reflexes were 1 symmetrical biceps triceps brachial radialis patellar and Achilles. There is no clonus present. Results - Laboratory Findings CBC and BMP: 11/01/16 07:10 11/01/16 07:10 Abnormal lab findings: Abnormal lab results RBC 3.40 M/mcL (3.82-4.97) L 11/01/16 07:10 Hgb 10.4 g/dL (11.5-15.4) L 11/01/16 07:10 Hct 29.9 % (35.3-44.9) L 11/01/16 07:10 Sodium 132 mEq/L (136-145) L 11/01/16 07:10 Carbon Dioxide 17 mEq/L (19-29) L 11/01/16 07:10 BUN 25 mg/dL (7-20) H 11/01/16 07:10 Creatinine 1.88 mg/dL (0.57-1.11) H 11/01/16 07:10 Est GFR ( Amer) 32 (> 60) L 11/01/16 07:10 Est GFR (Non-Af Amer) 26 (> 60) L 11/01/16 07:10 Glucose 285 mg/dL (70-99) H 11/01/16 07:10 POC Glucose 231 (58-89) H 10/31/16 12:07 Globulin 3.7 g/dL (2.4-3.5) H 10/31/16 19:05 Urine Clarity Cloudy (Clear) A 10/31/16 15:08 Urine Protein >=1000 mg/dL (Neg-Trace) H 10/31/16 15:08 Urine Glucose (UA) 100 mg/dL (Normal) H 10/31/16 15:08 Urine Blood Moderate (Negative) H 10/31/16 15:08 Ur Squamous Epith Cells Many per lpf (None-Few) H 10/31/16 15:08 Consult Discharge Plan - Plan Referrals: Demarco Trevizo MD [Primary Care Provider] -
[2016-11-01 13:39] LABS: Adenovirus Not Detected (Not Detect); Bordetella Pertussis Not Detected (Not Detect); Chlamydophila pneumoniae Not Detected (Not Detect); Coronavirus 229E Not Detected (Not Detect); Coronavirus HKU1 Not Detected (Not Detect); Coronavirus NL63 Not Detected (Not Detect); Coronavirus OC43 Not Detected (Not Detect); Human Metapneumovirus Not Detected (Not Detect); Human Rhinovirus/Enterovirus Not Detected (Not Detect); Influenza A Subtype 2009 H1 Not Detected (Not Detect); Influenza A Untypeable Not Detected (Not Detect); Influenza B Not Detected (Not Detect); Mycoplasma pneumoniae Not Detected (Not Detect); Parainfluenza Virus 1 Not Detected (Not Detect); Parainfluenza Virus 2 Not Detected (Not Detect); Parainfluenza Virus 3 Not Detected (Not Detect); Parainfluenza Virus 4 Not Detected (Not Detect); Respiratory Syncytial Virus Not Detected (Not Detect)
[2016-11-01] MEDS ORDERED: *HR* LORazepam 2 MG/ML VIAL ONE (13:46)
--- NOTE | 2016-11-01 13:49 | Event Note ---
Date of Encounter: 11/01/16 Time of Encounter: 13:45 Central Venous Catheter Placement procedure note Date: 11/01/2016 Time: 1:10 Indication: Intravenous access for iv antibiotics Attending: Dragan Reddy The patient was obtunded and febrile, she is suspected to viral encephalitis and requires antibiotics and antiviral coverage IV. Multiple attempts failed to establish peripheral IV access and therefore a central IV access was required. Consent was obtained from the patient's son. A time-out was completed verifying correct patient, procedure, site, positioning , and special equipment. The patient was placed in a dependent position appropriate for central line placement based on the vein to be cannulated. The patients right side of the neck was prepped and draped in sterile fashion. Maximum barrier protection was achieved and maintained throughout the procedure. 1% Lidocaine was used to anesthetize the surrounding skin area. The internal jugular vein was identified by use of the ultrasound machine and was easily cannulated under ultrasound guidance. A guidewire was introduced through the needle and the needle was removed. After appropriate dilation of the site, a triple lumen catheter was introduced into the the internal jugular using the Seldinger technique. The catheter was threaded smoothly over the guide wire and appropriate blood return was obtained. Each lumen of the catheter was evacuated of air and flushed with sterile saline. The catheter was then sutured in place to the skin and a sterile dressing applied. A chest x-ray was obtained and personally reviewed demonstrating the tip of the central line terminating and the SVC. Estimated Blood Loss: 15 mL The patient tolerated the procedure well and there were no complications.
[2016-11-01] MEDS: Ampicillin 2 GM in 0.9 % Sodium Chloride Mini Bag 100 ML IVPB SCH ×2 (14:07→20:19)
--- NOTE | 2016-11-01 14:08 | Event Note ---
Date of Encounter: 11/01/16 Time of Encounter: 14:06 This is a procedure note for a lumbar puncture. Preop diagnosis is lethargy or confusion: Postop diagnosis same Indications for procedure: Rule out central nervous system infectious process. Patient was placed in the upright sitting position and prepped and draped in the normal sterile fashion. Landmarks were assessed and localized to the L5 3 L4 interspace. The L3-L4 interspace was anesthetized with 1% lidocaine. A 20- gauge spinal needle was introduced. Clear and colorless cerebral spinal fluid was expelled. A total of 8-9 mL of clear colorless cerebrospinal spinal fluid was collected. The spinal needle was removed. Hemostasis achieved. Patient tolerated procedure without difficulty. Specimen was sent to the lab for stat analysis.
[2016-11-01 14:37] LABS: Red Blood Cell,CSF < 0.002 M/mcL
[2016-11-01 14:58] LABS: Appearance,CSF Clear (Clear)
[2016-11-01 15:03] LABS: Glucose,CSF 129 mg/dL (40-70); Total Protein,CSF 60 mg/dL (15-45)
[2016-11-01] MEDS: Acyclovir 600 MG in D5% in Water 100 ML IVPB SCH (15:44)
[2016-11-01] MEDS ORDERED: Vancomycin 2,000 MG in D5% in Water 500 ML IVPB ONE (16:00)
[2016-11-01] MEDS ORDERED: Vancomycin 2,000 MG in D5% in Water 250 ML IVPB SCH (17:00)
[2016-11-01] MEDS ORDERED: Haloperidol Lactate 5 MG/ML VIAL IVP ONE (22:41)
[2016-11-02] MEDS: Insulin LISPRO 300 UNITS/3 ML VIAL SQ SCH ×5 (03:52→23:59)
[2016-11-02] MEDS: 0.9 % Sodium Chloride 1,000 ML IVC SCH ×3 (03:56→20:25)
[2016-11-02] MEDS: Ampicillin 2 GM in 0.9 % Sodium Chloride Mini Bag 100 ML IVPB SCH ×3 (04:04→19:34)
[2016-11-02] MEDS: Acyclovir 600 MG in D5% in Water 100 ML IVPB SCH ×2 (04:04→15:44)
[2016-11-02 04:48] LABS: Hematocrit 27.4 % (35.3-44.9); Mean Corpuscular HGB Conc 32.8 g/dL (31.6-35.5); Mean Corpuscular Hemoglobin 30.1 pg (28.0-33.3); Mean Corpuscular Volume 91.6 fL (83.0-100.0); Mean Platelet Volume 9.4 fL (9.4-12.4); Platelet Count 181 K/mcL (140-400); Red Blood Count 2.99 M/mcL (3.82-4.97); Red Cell Distribution Width 13.4 % (11.5-14.5)
[2016-11-02 05:10] LABS: Potassium 3.6 mEq/L (3.5-4.5)
[2016-11-02 05:11] LABS: Albumin/Globulin Ratio 0.9 (1.1-2.2); Bilirubin,Total 0.3 mg/dL (0.2-1.2); Calcium 8.4 mg/dL (8.6-10.8); Globulin 3.4 g/dL (2.4-3.5); Magnesium 1.8 mg/dL (1.6-2.6); Total Protein 6.5 g/dL (6.0-8.3)
[2016-11-02 05:20] LABS: Albumin 3.1 g/dL (3.5-5.0)
[2016-11-02] MEDS: *HR* Heparin 5,000 UNIT/ML VIAL SQ SCH ×3 (05:53→22:31)
[2016-11-02] MEDS ORDERED: 0.9 % Sodium Chloride 1,000 ML IVC ONE ×2 (07:06→08:06)
[2016-11-02] MEDS: Gabapentin 300 MG CAPSULE PO SCH (09:03)
[2016-11-02] MEDS: Venlafaxine XR (24 HR) 150 MG CAP.ER.24H PO SCH (09:03)
[2016-11-02] MEDS: Topiramate 25 MG TABLET PO SCH (09:04)
--- NOTE | 2016-11-02 09:22 | Internal Med Progress Note ---
<Tmamy Lynne - Last Filed: 11/02/16 09:15> Date of Encounter: 11/02/16 Time of Encounter: 09:15 - Assessment and plan (1) Acute kidney injury superimposed on chronic kidney disease Current Visit: Yes Status: Acute Assessment and plan: Likely secondary to volume depletion and dehydration in setting of acute illness with fever and lack of peripheral IV access. BUN increased to 34 (baseline 25-30) today, Creatinine increased to 2.51 ( baseline 1.8-1.9), GFR decreases to 23 (baseline ~31) Will give patient 2000 mL IV bolus now. Will increase IV fluids to 175 cc/hour Will continue to monitor urine output. May consider additional boluses if needed Avoid nephrotoxic substances for now Will recheck BMP to monitor (2) Encephalitis Current Visit: Yes Status: Acute Assessment and plan: Likely cause of underlying acute mental status change and agitation with fever. CSF fluid gram stain negative CSF cell count significant for high protein, high WBC (neutrophil predominance) , low glucose. Can see elevated neutrophils early on in viral encephalitis as per Neuro Neuro following, appreciate expertise and assistance Continue IV ampicillin, ceftriaxone, vancomycin and acyclovir for broad coverage of possible ENDODONTICS DENTIST infections Will plan to narrow coverage as CSF PCR results become available May consider consultation with infectious disease pending clinical course (3) Fever Current Visit: Yes Status: Acute Assessment and plan: Patient currently afebrile, Tmax 102.2F over last 24 hours Chest xray with no sign of focal process Urinalysis negative Will obtain blood cultures x 2, awaiting results. Treatment as per encephalitis Qualifiers: Fever type: unspecified Qualified Code(s): R50.9 - Fever, unspecified (4) Altered mental status Current Visit: Yes Status: Acute Assessment and plan: Likely secondary to acute encephalitis CT head negative MRI head negative No evidence of metabolic cause on lab work. No evidence of infection on chest xray or urinalysis Carotid doppler significant for mild narrowing at bifurcation with no blockage Echocardiogram appears normal however limited by motion artifact. Antibiotic treatment as per encephalitis Neurology consulted, appreciate expertise and assistance Will place patient in soft restraints until mental status improves Qualifiers: Altered mental status type: unspecified Qualified Code(s): R41.82 - Altered mental status, unspecified (5) Agitation Current Visit: Yes Status: Acute Assessment and plan: Likely secondary to acute encephalitis Continue PRN Haldol or Ativan for increasing agitation Other treatment as per altered mental status and encephalitis (6) Diabetes mellitus Current Visit: Yes Status: Chronic Assessment and plan: Chronic. 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 Currently with evidence of CASH, treatment as per CASH Continue to monitor (8) History of CVA (cerebrovascular accident) Current Visit: No Status: Chronic Assessment and plan: History of prior CVA in April 2016. No residual deficits per family. Was treated at [facility]. (9) Seizure disorder Current Visit: No Status: Chronic Assessment and plan: Chronic. Neurology consulted. Appreciate input and expertise. EEG performed Will continue home medications as mental status improves as patient is able to tolerate edmi intake. May considering switching any oral medications to IV while patient is altered and unable to take any oral intake - Subjective Interval history: Patient seen and examined this morning. Due to patient's mental status, information gathered from chart review and who was present at bedside. Patient was admitted for acute change in mental status at home occurring sometime between 8:30-11:30 am day prior to arrival to the emergency room. Patient spiked a fever while in hospital causing concern for a ENDODONTICS DENTIST infection given sudden change in mental status. Yesterday blood cultures were obtained due to fever, no report yet available. Neurology was consulted, obtained EEG and lumbar puncture. CSF gram stain negative. CSF fluid with high WBCs neutrophillic predominance, high protein. Neurology feels is likely viral encephalitis and not bacterial meningitis. Patient pulled out her peripheral IV and did no have access during the day and required insertion of a central line. She was started on empiric coverage with IV vancomycin, azithromycin, ceftriaxone and ampicillin. Overnight she was noted to have decreased urine output. She also required a dose of haldol for increasing agitation. Additionally there were concerns over loose stools overnight, jessy was checked for c difficile and was negative. - Constitutional Vitals: Temp Pulse Resp BP Pulse Ox 96.2 F L 96 18 140/84 96 11/02/16 07:24 11/02/16 07:24 11/02/16 07:24 11/02/16 07:24 11/02/16 07:24 General appearance: Present: A&O X 0, no acute distress Exam: sleeping - Head Head exam: Present: atraumatic, normocephalic - Eye Eye exam: Present: normal appearance. Absent: conjunctival injection - ENT ENT exam: Present: mucous membranes moist, normal external ear exam - Neck Neck exam general surgery: Present: supple, trachea midline - Respiratory Respiratory exam: Present: CTAB. Absent: rales, rhonchi, stridor, wheezes - Cardiovascular Cardiovascular exam: Present: RRR, +S1, +S2. Absent: clicks, diastolic murmur, gallop, rubs, systolic murmur - GI/Abdominal GI/Abdominal exam: Present: normal bowel sounds, soft. Absent: distended, guarding, rebound, tenderness - Extremities Exam Extremities exam: Absent: pedal edema Internal Medicine: Result - Labs CBC & Chem 7: 11/02/16 04:00 11/02/16 04:00 Labs: Short CBC 11/01/16 11/02/16 Range/Units 07:10 04:00 WBC 10.5 8.1 (4.3-11.1) K/mcL Hgb 10.4 L 9.0 L (11.5-15.4) g/dL Hct 29.9 L 27.4 L (35.3-44.9) % Plt Count 197 181 (140-400) K/mcL BMP 11/02/16 04:00 Sodium 134 L Potassium 3.6 Chloride 104 Carbon Dioxide 18 L BUN 34 H Creatinine 2.51 H Glucose 176 H Calcium 8.4 L Liver Function 11/02/16 Range/Units 04:00 Total Bilirubin 0.3 (0.2-1.2) mg/dL AST 27 (5-34) Units/L ALT 18 (0-55) Units/L Alkaline Phosphatase 73 (38-126) Units/L Albumin 3.1 L D (3.5-5.0) g/dL - ABG Interpretation ABG results: PT/INR, D-dimer PT 11.5 Seconds (9.4-12.1) 10/31/16 12:10 - Impressions Impressions Chest X-Ray 11/01/16 13:08 IMPRESSION: Placement of right IJ central venous catheter with tip in the SVC. No pneumothorax. Otherwise stable exam without evidence for acute cardiopulmonary process. D/ / 11/01/2016 13:28:36 Ubaldo Spaulding MD / lito Interpreting Provider: Ubaldo Spaulding MD Consult Discharge Plan - Plan Referrals: Demarco Trevizo MD [Primary Care Provider] - <Niraj Malone - Last Filed: 11/02/16 14:20> - Assessment and plan (1) Herpes encephalitis Current Visit: Yes Status: Suspected (2) Acute metabolic encephalopathy Current Visit: Yes Status: Acute (3) Seizure disorder Current Visit: No Status: Chronic (4) Agitation Current Visit: Yes Status: Acute (5) Sinus tachycardia Current Visit: Yes Status: Acute (6) CKD (chronic kidney disease) Current Visit: Yes Status: Chronic Qualifiers: Chronic kidney disease stage: stage 4 (severe) Qualified Code(s): N18.4 - Chronic kidney disease, stage 4 (severe) (7) Diabetes Current Visit: No Status: Acute Qualifiers: Diabetes mellitus type: type 2 Diabetes mellitus complication status: with kidney complications Diabetes mellitus complication detail: with chronic kidney disease Diabetes mellitus red cross worker insulin use: with red cross worker use Chronic kidney disease stage: stage 4 (severe) Qualified Code(s): E11.22 - Type 2 diabetes mellitus with diabetic chronic kidney disease; N18.4 - Chronic kidney disease, stage 4 (severe); 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 I agree with the documented findings, disposition and treatment plan as described except to the extent set forth below. Ms. Rain is currently admitted for acute encephalitis, presumed to be herpes. She is high risk due to potential for worsening neurologic status. Ms. Rain is more alert today. She recognizes family members. She answers basic questions. No fever today. No GI symptoms Exam Alert. Comfortable at this time Answers questions Heart reg - no murmur Lungs clear Abd soft I/P 1. Acute encephalitis - most likely herpes virus. On IV acyclovir 2. CASH - due to volume depletion - IV fluids 3. Diabetes 4. Seizure disorder Further diagnoses and plan as above.
[2016-11-02] MEDS: *HR* Morphine 2 MG/ML SYRINGE IVP PRN ×3 (10:42→19:58)
--- NOTE | 2016-11-02 11:59 | EEG/EMG/Oth Biometrics Report ---
EEG Procedure Report Date of procedure: 11/02/16 EEG Procedure: Routine EEG Procedure Note: This is a report of a 21 channel bipolar and referential montage EEG recorded on a patient who is acutely unresponsive and encephalopathic. There is no posterior dominant alpha rhythm identified at any time during the recording. The baseline recording consist of low voltage delta frequencies in all leads bilaterally. However the voltage seems to be lower on the left cerebral hemisphere. Hyperventilation is not performed in this study. There is no sleep architecture identified during the recording. Stimulation is performed and does not produce a driving response. The EKG reveals sinus tachycardia at 108 beats per minute. Impressions: This EEG recording is abnormal and is consistent with the severe generalized encephalopathy. However voltage from the left cerebral hemisphere is lower than that of the right suggesting a superimposed process. There is no evidence of epileptiform activity identified during the study. Comment: Etiologies to explain this interpretation might include toxic, metabolic, postictal, degenerative, vascular or infectious. Please closely clinically. The documentation in the history of HPI and plan were at least partially created by [employer] voice recognition technology by Dr. Burgess. Errors in grammar, wording or other phrases may exist. If errors are found after the documentation signed, they will be addressed individually in the addendum section of this document when appropriate.
--- NOTE | 2016-11-02 13:05 | Neurology Progress Note ---
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 She has been afebrile over the last day as well. I recommend that she should receive at least a week of IV acyclovir. If she stabilizes in the hospital by the fifth of IV therapy, the remaining few days can be given in an outpatient setting. We might recommend consulting ID for an opinion on that matter as well. Thus far she has not shown any evidence of seizure activity. The EEG did not reveal seizure activity, although it does reveal diffuse slowing symmetrically left hemispheric more so than right. Whether or not she suffers in the terminal supervisor sequela as a result of this will of course remain to be seen. We will continue to follow. Subjective Interval history: The chart was reviewed, the patient was seen and examined. The case was discussed with the hospitalist/internal medicine team.'s Her Clinical Condition Has Improved However She Is Certainly Not Back to Her Normal Baseline. However she is able to talk today although she is not able to sustain a regular conversation. She does recognize family members present. She follows simple commands. She has not and febrile since starting the antibiotics. The labs reveal no evidence of an elevated white count. The lumbar puncture results are not supportive of a bacterial infection. The patient answers affirmatively when I ask her about a headache. I did review the EEG today which does reveal generalized encephalopathy however the voltage of the left cerebral hemisphere is significantly lower than that of the right. Objective - Constitutional Vitals: Temp Pulse Resp BP Pulse Ox 98.5 F 90 16 162/86 96 11/02/16 12:10 11/02/16 12:10 11/02/16 12:10 11/02/16 12:10 11/02/16 12:10 - Neurological Exam Motor Examination: Present: other (No focal or lateralized us to present today.) Sensation intact: Present: other (She does withdrawal to painful stimuli in all 4 extremities.) Mental Status Examination: Present: awake (Mental status assessment today finds that she is awake, however somewhat lethargic. She does make eye contact, she is able to speak although are not fluently today. She is able to follow some simple commands but not all. She does recognize some family members present. Overall however this is definitely a clinical improvement in comparison to yesterday.), drowsy, lethargic, makes eye contact Cranial nerve examination: Present: PERRL, EOMI, visual barrett intact, mastication intact, no facial asymmetry is present Results - Laboratory Findings CBC and BMP: 11/02/16 04:00 11/02/16 04:00 Abnormal lab findings: Abnormal lab results RBC 2.99 M/mcL (3.82-4.97) L 11/02/16 04:00 Hgb 9.0 g/dL (11.5-15.4) L 11/02/16 04:00 Hct 27.4 % (35.3-44.9) L 11/02/16 04:00 Sodium 134 mEq/L (136-145) L 11/02/16 04:00 Carbon Dioxide 18 mEq/L (19-29) L 11/02/16 04:00 BUN 34 mg/dL (7-20) H 11/02/16 04:00 Creatinine 2.51 mg/dL (0.57-1.11) H 11/02/16 04:00 Est GFR ( Amer) 23 (> 60) L 11/02/16 04:00 Est GFR (Non-Af Amer) 19 (> 60) L 11/02/16 04:00 Glucose 176 mg/dL (70-99) H 11/02/16 04:00 POC Glucose 211 (58-89) H 11/02/16 12:54 Calcium 8.4 mg/dL (8.6-10.8) L 11/02/16 04:00 Creatine Kinase 385 Units/L (29-168) H 11/01/16 15:56 Albumin 3.1 g/dL (3.5-5.0) L D 11/02/16 04:00 Albumin/Globulin Ratio 0.9 (1.1-2.2) L 11/02/16 04:00 Urine Clarity Cloudy (Clear) A 10/31/16 15:08 Urine Protein >=1000 mg/dL (Neg-Trace) H 10/31/16 15:08 Urine Glucose (UA) 100 mg/dL (Normal) H 10/31/16 15:08 Urine Blood Moderate (Negative) H 10/31/16 15:08 Ur Squamous Epith Cells Many per lpf (None-Few) H 10/31/16 15:08 CSF Tot Nucleated Cells 31 TNC/mcL (0-5) H* 11/01/16 14:02 CSF Glucose 129 mg/dL (40-70) H 11/01/16 14:02 CSF Total Protein 60 mg/dL (15-45) H 11/01/16 14:02 Consult Discharge Plan - Plan Referrals: Demarco Trevizo MD [Primary Care Provider] -
[2016-11-02] MEDS: Vancomycin 2,000 MG in D5% in Water 500 ML IVPB SCH ×2 (15:44→17:26)
--- NOTE | 2016-11-02 20:42 | Electrocardiograph Report ---
[place] [id number] Test Date: 2016-10-31 Pat Name: Mamta Rain Department: 103 Room: [facility] Gender: F Patrol Judge: CANDICE : 1940 Requested By: Tammy Lynne Order Number: [id number] Reading MD: Mandeep Sumner MD Measurements Intervals [place] Rate: 81 P: DE: 0 QRS: -29 QRSD: 76 T: 118 QT: 379 QTc: 417 Interpretive Statements SEVERE ARTIFACT TECHNICALLY POOR TRACING - RECOMMEND REPEATING ECG Electronically Signed On 11-02-2016 20:41:16 EDT by Mandeep Sumner MD
[2016-11-03] MEDS: Pantoprazole 40 MG VIAL IVP SCH (01:00)
[2016-11-03] MEDS: *HR* Morphine 2 MG/ML SYRINGE IVP PRN ×4 (01:00→13:53)
[2016-11-03] MEDS: 0.9 % Sodium Chloride 1,000 ML IVC SCH ×5 (02:50→23:00)
[2016-11-03] MEDS ORDERED: Benzonatate 100 MG CAPSULE PO PRN (02:52)
[2016-11-03] MEDS: Ampicillin 2 GM in 0.9 % Sodium Chloride Mini Bag 100 ML IVPB SCH ×2 (03:52→12:02)
[2016-11-03] MEDS: Acyclovir 600 MG in D5% in Water 100 ML IVPB SCH ×2 (04:12→14:59)
[2016-11-03] MEDS: Insulin LISPRO 300 UNITS/3 ML VIAL SQ SCH ×4 (05:59→22:10)
[2016-11-03] MEDS: *HR* Heparin 5,000 UNIT/ML VIAL SQ SCH ×3 (06:00→22:10)
--- NOTE | 2016-11-03 06:28 | Carotid Imaging Report ---
Carotid Duplex Patient Name:Mamta Rain Order Number:[id number] Procedure Date:11/02/2016 Date:1940ge:75 yrs Gender:Female Location:[facility] Room #: 2A32 Edger Hand:Maira Bland RVT Referring MD:Miguel Angel Rhodaes MD neonatologist:Demarco Trevizo MD Reading MD:Giancarlo Hernandez MD Primary Indications:suspected TIA Impressions: The bilateral carotid arteries have minimal plaque throughout. Findings Carotid Duplex: Right: There is nonstenotic plaque in the right distal common carotid artery. There is smooth homogeneous plaque. There is nonstenotic plaque in the right bifurcation. There is smooth homogeneous plaque. Left: There is nonstenotic plaque in the left distal common carotid artery. There is smooth homogeneous plaque. There is nonstenotic plaque in the left bifurcation. There is smooth homogeneous plaque. Carotid Results Right PSV EDV Assessment Proximal CCA 101 9 Normal Mid CCA 104 12 Normal Distal CCA 85 17 Non Stenotic Plaque Bifurcation 59 14 Non Stenotic Plaque Proximal ICA 101 9 Normal Mid ICA 104 15 Normal Distal ICA 85 17 Normal ECA 98 11 Normal Vertebral Artery 85 21 Antegrade Flow Left PSV EDV Assessment Proximal CCA 77 14 Normal Mid CCA 101 17 Normal Distal CCA 106 24 Non Stenotic Plaque Bifurcation 87 19 Non Stenotic Plaque Proximal ICA 100 16 Normal Mid ICA 102 22 Normal Distal ICA 84 24 Normal ECA 111 14 Normal Vertebral Artery 65 21 Antegrade Flow Ratio's Right ICA/CCA Ratio: 1.00 ICA/CCA Values: 104/104 Left ICA/CCA Ratio: 1.00 ICA/CCA Values: 102/101 Updated by Gianacrlo Hernandez MD on 11/03/2016 6:22:40 AM electronically signed on 11/03/2016 6:22:54 AM with status of Final
--- NOTE | 2016-11-03 07:22 | Neurology Progress Note ---
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 Patient seems to be improving by the day. However she still not at her baseline. Patient apparently had excessive coughing yesterday which probably needs to be further investigated. I am going to repeat a CT scan of the head today without contrast. Consider ID consultation. Await PCR for HSV. The documentation in the history of HPI and plan were at least partially created by [employer] voice recognition technology by Dr. Burgess. Errors in grammar, wording or other phrases may exist. If errors are found after the documentation signed, they will be addressed individually in the addendum section of this document when appropriate. Subjective Interval history: The chart was reviewed, the patient was seen and examined. Patient had an uneventful night. Apparently she did not have some extreme coughing spells. She was sleeping when I entered the room. She was easily aroused to voice. She makes eye contact, she follows simple commands. Her speech and communication is better today she is speaking in complete sentences. However she still remains confused and is not at her baseline. Vital signs of been stable. She remains afebrile. HSV titer still pending. Objective - Constitutional Vitals: Temp Pulse Resp BP Pulse Ox 98.0 F 91 18 179/83 97 11/03/16 04:13 11/03/16 04:13 11/03/16 04:13 11/03/16 04:13 11/03/16 04:13 - Neurological Exam Motor Examination: Present: other (No focal or lateralized us to present today.) Sensation intact: Present: other (She does withdrawal to painful stimuli in all 4 extremities.) Mental Status Examination: Present: awake (Mental status assessment today finds that she is awake, however somewhat lethargic. She does make eye contact, she is able to speak although are not fluently today. She is able to follow some simple commands but not all. She does recognize some family members present. Overall however this is definitely a clinical improvement in comparison to yesterday.), drowsy, lethargic, makes eye contact Cranial nerve examination: Present: PERRL, EOMI, visual barrett intact, mastication intact, no facial asymmetry is present Additional comments: Patient was arousable to voice. She does make eye contact, she is able to speak and follow commands. However her speech is not smooth and her processing is still slow. She does have tremors when she is awake however not when drowsy or sleeping. Cranial nerves II through XII are all intact. Motor exam finds involuntary tremors during wakefulness. She has good tone throughout. No atrophy. No clonus is present. Results - Laboratory Findings CBC and BMP: 11/02/16 04:00 11/02/16 04:00 Abnormal lab findings: Abnormal lab results RBC 2.99 M/mcL (3.82-4.97) L 11/02/16 04:00 Hgb 9.0 g/dL (11.5-15.4) L 11/02/16 04:00 Hct 27.4 % (35.3-44.9) L 11/02/16 04:00 Sodium 134 mEq/L (136-145) L 11/02/16 04:00 Carbon Dioxide 18 mEq/L (19-29) L 11/02/16 04:00 BUN 34 mg/dL (7-20) H 11/02/16 04:00 Creatinine 2.51 mg/dL (0.57-1.11) H 11/02/16 04:00 Est GFR ( Amer) 23 (> 60) L 11/02/16 04:00 Est GFR (Non-Af Amer) 19 (> 60) L 11/02/16 04:00 Glucose 176 mg/dL (70-99) H 11/02/16 04:00 POC Glucose 124 (58-89) H 11/02/16 23:53 Calcium 8.4 mg/dL (8.6-10.8) L 11/02/16 04:00 Creatine Kinase 385 Units/L (29-168) H 11/01/16 15:56 Albumin 3.1 g/dL (3.5-5.0) L D 11/02/16 04:00 Albumin/Globulin Ratio 0.9 (1.1-2.2) L 11/02/16 04:00 Urine Clarity Cloudy (Clear) A 10/31/16 15:08 Urine Protein >=1000 mg/dL (Neg-Trace) H 10/31/16 15:08 Urine Glucose (UA) 100 mg/dL (Normal) H 10/31/16 15:08 Urine Blood Moderate (Negative) H 10/31/16 15:08 Ur Squamous Epith Cells Many per lpf (None-Few) H 10/31/16 15:08 CSF Tot Nucleated Cells 31 TNC/mcL (0-5) H* 11/01/16 14:02 CSF Glucose 129 mg/dL (40-70) H 11/01/16 14:02 CSF Total Protein 60 mg/dL (15-45) H 11/01/16 14:02 Consult Discharge Plan - Plan Referrals: Demarco Trevizo MD [Primary Care Provider] -
[2016-11-03] MEDS ORDERED: Aminoglycoside Consult 1 EACH MC ONE (08:08)
[2016-11-03] MEDS: Topiramate 25 MG TABLET PO SCH (08:40)
[2016-11-03] MEDS: Venlafaxine XR (24 HR) 150 MG CAP.ER.24H PO SCH (08:41)
[2016-11-03] MEDS: Gabapentin 300 MG CAPSULE PO SCH (08:41)
[2016-11-03 09:02] LABS: Basophils % 0.2 %; Eosinophils # 0.1 K/mcL (0.0-0.6); Eosinophils % 1.4 %; Hematocrit 26.2 % (35.3-44.9); Hemoglobin 8.8 g/dL (11.5-15.4); Immature Granulocytes % 0.2 % (0-4); Lymphocytes # 1.5 K/mcL (0.6-4.6); Lymphocytes % 17.8 %; Mean Corpuscular HGB Conc 33.6 g/dL (31.6-35.5); Mean Corpuscular Hemoglobin 29.9 pg (28.0-33.3); Mean Corpuscular Volume 89.1 fL (83.0-100.0); Mean Platelet Volume 8.8 fL (9.4-12.4); Monocytes # 0.7 K/mcL (0.0-1.3); Monocytes % 8.7 %; Neutrophils # 6.1 K/mcL (1.6-8.9); Platelet Count 155 K/mcL (140-400); Red Blood Count 2.94 M/mcL (3.82-4.97); Red Cell Distribution Width 13.2 % (11.5-14.5); Segmented Neutrophils % 71.7 %
[2016-11-03 09:16] LABS: Albumin 3.3 g/dL (3.5-5.0); Calcium 8.2 mg/dL (8.6-10.8); Phosphorous 1.8 mg/dL (2.3-4.7); Potassium 3.2 mEq/L (3.5-4.5)
--- NOTE | 2016-11-03 10:26 | Internal Med Progress Note ---
<Tammy Lynne - Last Filed: 11/03/16 10:19> Date of Encounter: 11/03/16 Time of Encounter: 10:20 - Assessment and plan (1) Acute kidney injury superimposed on chronic kidney disease Current Visit: Yes Status: Acute (2) Encephalitis Current Visit: Yes Status: Acute (3) Fever Current Visit: Yes Status: Acute Qualifiers: Fever type: unspecified Qualified Code(s): R50.9 - Fever, unspecified (4) Altered mental status Current Visit: Yes Status: Acute Qualifiers: Altered mental status type: unspecified Qualified Code(s): R41.82 - Altered mental status, unspecified (5) Agitation Current Visit: Yes Status: Acute (6) Diabetes mellitus Current Visit: Yes Status: Chronic Qualifiers: Diabetes mellitus type: type 2 Diabetes mellitus complication status: with unspecified complications Diabetes mellitus remote computer terminal operator insulin use: with usp use Qualified Code(s): E11.8 - Type 2 diabetes mellitus with unspecified complications; Z79.4 - halfway (current) use of insulin (7) CKD (chronic kidney disease) stage 3, GFR 30-59 ml/min Current Visit: No Status: Chronic (8) History of CVA (cerebrovascular accident) Current Visit: No Status: Chronic (9) Seizure disorder Current Visit: No Status: Chronic - Subjective Interval history: Patient seen and examined this morning. Due to patient's mental status, information gathered from chart review and who was present at bedside. Patient was admitted for acute change in mental status at home occurring sometime between 8:30-11:30 am day prior to arrival to the emergency room. 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 EEG consistent with diffuse encephalopathy. Blood cultures negative. Lumbar puncture CSF gram stain and culture negative. CSF fluid with high WBC with neutrophilic predominance and high protein. Has been on empiric coverage with vancomycin, ampicillin ceftriaxone and acyclovir. Yesterday she passed a bedside swallow study with nurse. Speech assessment this morning with no evidence of dysphagia. Neurology following, feels as if is herpes encephalitis, has reordered a CT head this morning. Patient was reportedly coughing all night, restarted inhalers and acid medication. This morning, patient is awake and conversant. at bedside states her speech is still significantly slower than normal for her but is now understandable. She reports she has pain "everywhere". She does report feeling hungry. feels she is improved from yesterday. There are no other complaints or concerns at this time. - Constitutional Vitals: Temp Pulse Resp BP Pulse Ox 97.5 F L 89 18 168/83 94 L 11/03/16 09:00 11/03/16 09:00 11/03/16 09:00 11/03/16 09:00 11/03/16 09:00 General appearance: Present: A&O X 2 (oriented to person and location ), no acute distress - Head Head exam: Present: atraumatic, normocephalic - Eye Eye exam: Present: normal appearance. Absent: conjunctival injection - ENT ENT exam: Present: mucous membranes moist, normal external ear exam - Neck Neck exam general surgery: Present: supple, trachea midline Additional comments: right central line in with no signs of erythema. - Respiratory Respiratory exam: Present: CTAB. Absent: rales, rhonchi, stridor, wheezes - Cardiovascular Cardiovascular exam: Present: RRR, +S1, +S2. Absent: clicks, diastolic murmur, gallop, rubs, systolic murmur - GI/Abdominal GI/Abdominal exam: Present: hypoactive bowel sounds, soft. Absent: distended, guarding, rebound, tenderness - Extremities Exam Extremities exam: Present: normal capillary refill. Absent: pedal edema - Neurological Exam Additional comments: slow speech Internal Medicine: Result - Labs CBC & Chem 7: 11/03/16 08:50 11/03/16 08:50 Labs: Short CBC 11/03/16 Range/Units 08:50 WBC 8.5 (4.3-11.1) K/mcL Hgb 8.8 L (11.5-15.4) g/dL Hct 26.2 L (35.3-44.9) % Plt Count 155 (140-400) K/mcL Neutrophils # 6.1 (1.6-8.9) K/mcL BMP 11/03/16 08:50 Sodium 135 L Potassium 3.2 L Chloride 105 Carbon Dioxide 20 BUN 17 D Creatinine 1.41 H Glucose 110 H Calcium 8.2 L Liver Function 11/03/16 Range/Units 08:50 Albumin 3.3 L (3.5-5.0) g/dL - ABG Interpretation ABG results: PT/INR, D-dimer PT 11.5 Seconds (9.4-12.1) 10/31/16 12:10 - Impressions Impressions Head CT 11/03/16 07:29 IMPRESSION: 1. No convincing acute intracranial abnormality. Questionable hypodensity in the right temporal lobe. If clinical concern persists or if it would alter patient's management, MRI would be more sensitive. 2. Chronic periventricular white matter ischemic changes. D/ / 11/03/2016 08:33:46 Lamberto Chavez MD / lito Interpreting Provider: Lamberto Chavez MD Consult Discharge Plan - Plan Referrals: Demarco Trevizo MD [Primary Care Provider] - 11/11/16 2:40 pm (Please follow up as schedule..) <Niraj Malone - Last Filed: 11/03/16 15:19> - Assessment and plan (1) Herpes encephalitis Current Visit: Yes Status: Suspected (2) Acute metabolic encephalopathy Current Visit: Yes Status: Acute (3) Seizure disorder Current Visit: No Status: Chronic (4) Agitation Current Visit: Yes Status: Acute (5) Sinus tachycardia Current Visit: Yes Status: Resolved (6) CKD (chronic kidney disease) Current Visit: Yes Status: Chronic Qualifiers: Chronic kidney disease stage: stage 4 (severe) Qualified Code(s): N18.4 - Chronic kidney disease, stage 4 (severe) (7) Diabetes Current Visit: No Status: Acute Qualifiers: Diabetes mellitus type: type 2 Diabetes mellitus complication status: with kidney complications Diabetes mellitus complication detail: with chronic kidney disease Diabetes mellitus usp insulin use: with remote computer terminal operator use Chronic kidney disease stage: stage 4 (severe) Qualified Code(s): E11.22 - Type 2 diabetes mellitus with diabetic chronic kidney disease; N18.4 - Chronic kidney disease, stage 4 (severe); Z79.4 - halfway (current) use of insulin (8) Acute renal failure due to tubular necrosis Current Visit: Yes Status: Suspected (9) Anemia Current Visit: No Status: Chronic Qualifiers: Anemia type: other cause Other causes of anemia: chronic disease, other Qualified Code(s): D63.8 - Anemia in other chronic diseases classified elsewhere (10) Hypokalemia Current Visit: Yes Status: Acute Assessment and plan: Replace today. - Constitutional Vitals: Temp Pulse Resp BP Pulse Ox 97.3 F L 79 16 168/76 96 11/03/16 11:48 11/03/16 13:53 11/03/16 13:53 11/03/16 13:53 11/03/16 13:53 Internal Medicine: Result - Labs CBC & Chem 7: 11/03/16 08:50 11/03/16 08:50 Labs: Short CBC 11/03/16 Range/Units 08:50 WBC 8.5 (4.3-11.1) K/mcL Hgb 8.8 L (11.5-15.4) g/dL Hct 26.2 L (35.3-44.9) % Plt Count 155 (140-400) K/mcL Neutrophils # 6.1 (1.6-8.9) K/mcL BMP 11/03/16 08:50 Sodium 135 L Potassium 3.2 L Chloride 105 Carbon Dioxide 20 BUN 17 D Creatinine 1.41 H Glucose 110 H Calcium 8.2 L Liver Function 11/03/16 Range/Units 08:50 Albumin 3.3 L (3.5-5.0) g/dL - ABG Interpretation ABG results: PT/INR, D-dimer PT 11.5 Seconds (9.4-12.1) 10/31/16 12:10 - Impressions Impressions Head CT 11/03/16 07:29 IMPRESSION: 1. No convincing acute intracranial abnormality. Questionable hypodensity in the right temporal lobe. If clinical concern persists or if it would alter patient's management, MRI would be more sensitive. 2. Chronic periventricular white matter ischemic changes. D/ / 11/03/2016 08:33:46 Lamberto Chavez MD / lito Interpreting Provider: Lamberto Chavez MD - Attending Attestation I examined this patient and my medical decision-making was reviewed with the Resident Physician on 11/03/16. I agree with the documented findings, disposition and treatment plan as described except to the extent set forth below. Ms. Rain is currently admitted for presumptive acute herpes encephalitis. She is high risk due to potential for worsening neurologic status. Ms. Rain is more alert and oriented today. She continues on IV treatment. No further fever. No GI issues. To have repeat CT of head and CXR today. Exam Alert. Oriented more today Follow simple commands Heart reg Lungs clear I/P 1. 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 Confusion Further diagnoses and plan as above.
[2016-11-03] MEDS ORDERED: SODIUM CHLORIDE 0.9% IVPB ONE (10:46)
[2016-11-03] MEDS ORDERED: POTASSIUM PHOSPHATE IVPB ONE (10:46)
[2016-11-03] MEDS ORDERED: Albuterol 2.5 MG/3 ML NEBULIZER IH PRN (10:55)
--- NOTE | 2016-11-03 13:55 | Infectious Disease Consult ---
Date of Encounter: 11/03/16 Time of Encounter: 13:52 Assessment and Plan (1) Sepsis Status: Acute Assessment and plan: The patient had two SIRS criteria 11/01/16 with encephalopathy. Likely secondary to encephalitis. Improved. The patient has been afebrile since 11/02/16. Tachycardia has resolved. Her WBC has remained normal. Blood cultures drawn 11/01/16 are NGTD. Qualifiers: Sepsis type: sepsis due to unspecified organism Qualified Code(s): A41.9 - Sepsis, unspecified organism (2) Encephalitis Status: Acute Assessment and plan: Causative organism unclear, but high likelihood of HSV given the patient's clinical picture. Patient presented with severe, sudden-onset AMS with garbled speech and agitation. Status post bedside LP by Dr. Burgess. CSF was clear, colorless. TNC 31 with 98% neutrophils and 2% lymphocytes. CSF culture is NGTD, no bacteria on microscopy. Although the CSF differential was predominantly neutrophils, it is highly likely that this is a viral encephalitis as it is not uncommon to have neutrophilic predominance early in the course of illness. Discontinue Vancomycin, Ampicillin, and Rocephin. Continue acyclovir 10mg/kg IV Q8H. Await HSV PCR. Await finalization of CSF cultures. Duration of treatment depends on the clinical picture, but patient would likely benefit from a full 21 day course of IV acyclovir. Monitor renal function and dose-adjust antibiotics. Monitor neuro status closely. (3) Acute kidney injury superimposed on chronic kidney disease Status: Acute Assessment and plan: Likely secondary to sepsis. Improved. Monitor renal function and dose-adjust antibiotics. (4) Acute metabolic encephalopathy Status: Acute Assessment and plan: Secondary to encephalitis and sepsis. Improved. (5) Diabetes mellitus Status: Chronic Qualifiers: Diabetes mellitus type: type 2 Diabetes mellitus complication status: with unspecified complications Diabetes mellitus alf insulin use: with equipment operator intermodal yard use Qualified Code(s): E11.8 - Type 2 diabetes mellitus with unspecified complications; Z79.4 - halfway (current) use of insulin Infectious Disease HPI - Data of Consult Patient: new to practice Consult date: 11/03/16 Requesting Physician: Niraj Malone DO Primary Care Provider: Demarco Trevizo MD - Consult Narrative Reason for consult: Encephalitis History of present illness: Ms. Rain is a 75 year old female with a past medical history of asthma, CVA, diabetes, hyperlipidemia, hypertension, seizure disorder, and anxiety. The patient was admitted to the hospital October 31 for altered mental status. We are consulted November 03 for further recommendations regarding encephalitis. The patient is a 75 old female past medical history as stated above. She presented to the emergency department with acute onset of altered mental status on the day of admission. Upon arrival, she was afebrile and hemodynamically stable. Her laboratory studies were significant for serum creatinine of 1.93, but were otherwise essentially negative. Urinalysis was obtained that was normal. CT the head and chest x-ray were both negative. A brain MRI was negative for acute infarcts. The patient underwent a carotid Doppler study that was inconclusive due to patient motion artifact. The patient was subsequently admitted for further evaluation and treatment. The next morning, the patient spiked fever of 102.6 and her heart rate went to the 120s. Neurology was consulted and performed a bedside lumbar puncture. CSF was clear with a TMC of 31 with 98% neutrophils and 2% lymphocytes. Glucose was elevated at 129 and protein was elevated at 60. CSF culture is no growth to date. HSV-1 is pending. The patient was started appeared clear on IV acyclovir, vancomycin, ampicillin, and Rocephin. Repeat carotid Doppler showed minimal plaque in the bilateral carotid arteries. EEG was completed that showed severe generalized encephalopathy. A repeat CT of the head was negative. The patient has remained hemodynamically stable. Clinically she has improved. Her white blood cell count has remained normal. We have been asked to evaluate and make further recommendations. During my exam today, the patient was seen with the patient building architectural designer at the bedside. The patient is still somewhat altered and unable to provide me with any information leading up to her hospitalization. All of the information is obtained from medical record and there is no family at the bedside. Currently, the patient complains of headache, neck pain, chest pain, and abdominal pain. She denies any back pain. She also reports her shortness of breath and nonproductive cough. She denies any nausea, vomiting, diarrhea, or constipation. She is unsure when her last bowel movement once, but the patient pain and reports that she had a bowel movement yesterday. She denies any urinary complaints. She does have a Russell catheter is patent, draining clear yellow urine. Denies any pain in any of her extremities. She denies blurred vision. She states that this far she can remember she was not sick prior to admission to the hospital. She denies skin rashes or oral lesions. She states she lives with her and her son. CC: Niraj Malone, DO Past Med Surg Social Fam HX - Past Medical History Source: old records reviewed, nursing notes reviewed Medical history: arthritis, asthma, CVA, diabetes, GERD, hyperlipidemia, hypertension, osteoporosis, peripheral artery disease, seizures, TIA, other Psychiatric history: anxiety - Past Surgical History Surgical History: other (Bilateral tubal ligation) - Social History Smoking Status: Never smoker Smokeless Tobacco Status: No Alcohol use: none Drug use: none - Family History Father Living Status: Hx Family Cardiac Disorders: Yes Brother Living Status: Sister Living Status: Hx Family Cardiac Disorders: Yes Mother Living Status: Hx Family Cardiac Disorders: Yes Hx Family Cancer: Yes Infectious Disease-CN:Meds Insulin ASPART [NovoLOG] 5 unit SQ TID 07/30/15 [History] Montelukast [Singulair] 10 mg PO QPM 07/30/15 [History] Topiramate [Topamax] 50 mg PO DAILY 07/30/15 [History] TraZODone 50 mg PO HS PRN 07/30/15 [History] Zolpidem [Ambien] 5 mg PO HS PRN 07/30/15 [History] Aspirin 81 mg PO DAILY #90 tab.chew 11/21/15 [Rx] Albuterol Sulfate [Albuterol Inhaler] 2 puff IH Q6H PRN 09/08/16 [History] Aripiprazole [Abilify] 2 mg PO DAILY 09/08/16 [History] Atorvastatin [Lipitor] 40 mg PO HS 09/08/16 [History] Clopidogrel [Plavix] 75 mg PO DAILY 09/08/16 [History] Colesevelam [Welchol] 1,875 mg PO BIDWM 09/08/16 [History] Docusate [Colace] 100 mg PO BID #60 capsule 09/08/16 [Rx] Esomeprazole Magnesium [Nexium] 40 mg PO BID 09/08/16 [History] Gabapentin [Neurontin] 600 mg PO DAILY 09/08/16 [History] Guaifenesin [Mucinex] 600 mg PO Q12H 09/08/16 [History] HYDROcodone/Acet 5/325 mg [[place] 5-325 mg] 1 tab PO Q4H PRN #10 tab 09/08/16 [Rx ] Insulin DETEMIR [Levemir Flextouch] 30 unit SQ HS 09/08/16 [History] Loratadine [Allergy Relief] 10 mg PO DAILY 09/08/16 [History] Metoclopramide [Reglan] 10 mg PO QIDAC 09/08/16 [History] Metoprolol [Lopressor] 25 mg PO BID 09/08/16 [History] Pioglitazone HCl [Actos] 45 mg PO DAILY 09/08/16 [History] Sodium Bicarbonate 650 mg PO BID 09/08/16 [History] Venlafaxine HCl [Venlafaxine HCl ER] 150 mg PO DAILY 09/08/16 [History] Ondansetron ODT [Zofran ODT] 4 mg SL Q8HR #14 tab.rapdis 10/24/16 [Rx] Allergies Iodinated Contrast Media - Oral and [Iodinated Contrast Media - IV Dye] Allergy (Verified 09/08/16 08:19) Anaphylaxis codeine Adverse Reaction (Verified 09/08/16 08:19) Gastrointestinal Upset All systems: reviewed and no additional remarkable complaints except as stated Exam - Constitutional Vitals: Temp Pulse Resp BP Pulse Ox 97.3 F L 79 16 168/76 96 11/03/16 11:48 11/03/16 11:48 11/03/16 11:48 11/03/16 11:48 11/03/16 11:48 General appearance: cooperative, no acute distress, obese - Head Head exam: Present: atraumatic, normal inspection, normocephalic - Eye Eye exam: Present: EOMI, normal appearance, PERRL Pupils: Present: normal accommodation - ENT ENT exam: Present: mucous membranes moist - Neck Neck exam: Present: normal inspection. Absent: meningismus - Respiratory Respiratory exam: Present: CTAB. Absent: rales, respiratory distress, rhonchi, wheezes - Cardiovascular Cardiovascular exam: Present: RRR, +S1, +S2 - GI/Abdominal GI/Abdominal exam: Present: distended (obese), normal bowel sounds, soft, tenderness (generalized) Additional comments: Russell catheter patent draining clear yellow urine. - Extremities Exam Extremities exam: Present: normal inspection. Absent: joint swelling, pedal edema, tenderness - Neurological Exam Neurological exam: Present: alert, oriented X3, no focal deficits Additional comments: CUEVAS x 4. Answers questions appropriately, but is slow to respond to questions. Follows commands appropriately. - Skin Skin exam: Present: dry, intact, normal color, warm Infectious Disease CN: Results - Labs CBC & Chem 7: 11/04/16 10:00 11/04/16 10:00 Cultures: Cultures 11/01/16 08:27 Blood Culture - Preliminary Peripheral Venipuncture No growth. 11/01/16 08:05 Blood Culture - Preliminary Peripheral Venipuncture No growth. 11/01/16 14:02 CSF Culture - Preliminary Cerebral Spinal Fluid Serology: Serology 11/01/16 11/01/16 11/01/16 Range/Units 23:28 14:02 12:00 Urine Color (Yellow) Urine Clarity (Clear) Urine pH (5.0-8.0) pH Units Ur Specific [place] (1.010-1.025) Urine Protein (Neg-Trace) mg/dL Urine Glucose (UA) (Normal) mg/dL Urine Ketones (Negative) mg/dL Urine Blood (Negative) Urine Nitrite (Negative) Urine Bilirubin (Negative) Urine Urobilinogen (Normal) mg/dL Ur Leukocyte Esterase (Negative) Urine Microscopic RBC (0-3) per hpf Urine Microscopic WBC (0-3) per hpf Ur Squamous Epith Cells (None-Few) per lpf Urine Bacteria (None-Few) per hpf Hyaline Casts (None-Few) per lpf Ur Culture Indicated? (NO) CSF Volume 11.0 mL CSF Appearance Clear (Clear) CSF Color Colorless (Colorless) CSF RBC < 0.002 (0.000 - 0.002) M/mcL CSF Tot Nucleated Cells 31 H* (0-5) TNC/mcL CSF Seg Neutrophils 98.0 % CSF Band Neutrophils % Test Not Performed CSF Lymphocytes % 2.0 % CSF Monocytes % Test Not Performed CSF Eosinophils % Test Not Performed CSF Basophils % Test Not Performed CSF Other Cells % Test Not Performed CSF Glucose 129 H (40-70) mg/dL CSF Xanth Comm Not Observed (Not Observe) CSF Total Protein 60 H (15-45) mg/dL Stl C. diff Tox B Gene Negative (Negative) Chlamy pneumoniae PCR Not Detected (Not Detect) Adenovirus (PCR) Not Detected (Not Detect) B. pertussis DNA (PCR) Not Detected (Not Detect) Coronavirus OC43 (PCR) Not Detected (Not Detect) Coronavirus HKU1 (PCR) Not Detected (Not Detect) Coronavirus 229E (PCR) Not Detected (Not Detect) Coronavirus NL63 (PCR) Not Detected (Not Detect) Human Metapneumovirus Not Detected (Not Detect) Influenza A (H1) PCR Not Detected (Not Detect) Influ A (H1N1/09) PCR Not Detected (Not Detect) Influenza A (H3) PCR Not Detected (Not Detect) Influenza A Untype (PCR) Not Detected (Not Detect) Influenza Type B (PCR) Not Detected (Not Detect) M.pneumoniae DNA (PCR) Not Detected (Not Detect) Parainfluenza 1 (PCR) Not Detected (Not Detect) Parainfluenza 2 (PCR) Not Detected (Not Detect) Parainfluenza 3 (PCR) Not Detected (Not Detect) Parainfluenza 4 (PCR) Not Detected (Not Detect) RSV (PCR) Not Detected (Not Detect) Entero/Rhino (PCR) Not Detected (Not Detect) 10/31/16 Range/Units 15:08 Urine Color Yellow (Yellow) Urine Clarity Cloudy A (Clear) Urine pH 5.0 (5.0-8.0) pH Units Ur Specific [place] 1.024 (1.010-1.025) Urine Protein >=1000 H (Neg-Trace) mg/dL Urine Glucose (UA) 100 H (Normal) mg/dL Urine Ketones Negative (Negative) mg/dL Urine Blood Moderate H (Negative) Urine Nitrite Negative (Negative) Urine Bilirubin Negative (Negative) Urine Urobilinogen Normal (Normal) mg/dL Ur Leukocyte Esterase Negative (Negative) Urine Microscopic RBC 0-3 (0-3) per hpf Urine Microscopic WBC 0-3 (0-3) per hpf Ur Squamous Epith Cells Many H (None-Few) per lpf Urine Bacteria None Seen (None-Few) per hpf Hyaline Casts Few (None-Few) per lpf Ur Culture Indicated? NO (NO) CSF Volume mL CSF Appearance (Clear) CSF Color (Colorless) CSF RBC (0.000 - 0.002) M/mcL CSF Tot Nucleated Cells (0-5) TNC/mcL CSF Seg Neutrophils % CSF Band Neutrophils % CSF Lymphocytes % % CSF Monocytes % CSF Eosinophils % CSF Basophils % CSF Other Cells % CSF Glucose (40-70) mg/dL CSF Xanth Comm (Not Observe) CSF Total Protein (15-45) mg/dL Stl C. diff Tox B Gene (Negative) Chlamy pneumoniae PCR (Not Detect) Adenovirus (PCR) (Not Detect) B. pertussis DNA (PCR) (Not Detect) Coronavirus OC43 (PCR) (Not Detect) Coronavirus HKU1 (PCR) (Not Detect) Coronavirus 229E (PCR) (Not Detect) Coronavirus NL63 (PCR) (Not Detect) Human Metapneumovirus (Not Detect) Influenza A (H1) PCR (Not Detect) Influ A (H1N1/09) PCR (Not Detect) Influenza A (H3) PCR (Not Detect) Influenza A Untype (PCR) (Not Detect) Influenza Type B (PCR) (Not Detect) M.pneumoniae DNA (PCR) (Not Detect) Parainfluenza 1 (PCR) (Not Detect) Parainfluenza 2 (PCR) (Not Detect) Parainfluenza 3 (PCR) (Not Detect) Parainfluenza 4 (PCR) (Not Detect) RSV (PCR) (Not Detect) Entero/Rhino (PCR) (Not Detect) Consult Discharge Plan - Plan Referrals: Demarco Trevizo MD [Primary Care Provider] - 11/11/16 2:40 pm (Please follow up as schedule..)
[2016-11-04] MEDS: *HR* Morphine 2 MG/ML SYRINGE IVP PRN (00:34)
[2016-11-04] MEDS: Acyclovir 600 MG in D5% in Water 100 ML IVPB SCH ×2 (05:25→15:47)
[2016-11-04] MEDS: *HR* Heparin 5,000 UNIT/ML VIAL SQ SCH ×3 (05:27→21:08)
[2016-11-04] MEDS: Pantoprazole 40 MG VIAL IVP SCH (05:35)
--- NOTE | 2016-11-04 07:58 | Neurology Progress Note ---
Date of Encounter: 11/04/16 Time of Encounter: 07:56 Assessment and Plan (1) Altered mental status Current Visit: Yes Status: Acute Qualifiers: Altered mental status type: unspecified Qualified Code(s): R41.82 - Altered mental status, unspecified (2) Encephalitis Current Visit: Yes Status: Acute The patient is making a great recovery. Given her response to acyclovir, herpes encephalitis is likely. PCR is still pending. However regardless of the PCR analysis of recommend a full course of acyclovir therapy as recommendations provided by infectious diseases. She does have complaints of headache and the agent of choice would be fine for this. We will also begin to focus on getting her prepared for discharge. Recommend having her sitting up in a chair to tolerance and perhaps ambulating the halls with assistance. I will reevaluate her at your request. Subjective Interval history: The chart was reviewed, patient was seen and examined. Patient is really making a great recovery. Today she is awake and alert follows commands appropriately and makes eye contact and is probably close to being back at her normal baseline. She does complain of headache. She also complains of some subtle weakness of the left arm and leg and subtle sensory findings of the left arm and leg. CT scan of the brain was essentially normal however those questionable abnormality of the right temporal lobe. This would in fact correlate with her perceived deficits. PCR for HSV is pending, however given her a standing improvement of certain recommend following through with a complete course of IV acyclovir therapy per recommendations given by infectious diseases. Objective - Constitutional Vitals: Temp Pulse Resp BP Pulse Ox 97.5 F L 67 16 164/85 97 11/04/16 04:12 11/04/16 04:12 11/04/16 04:12 11/04/16 04:12 11/04/16 04:12 - Neurological Exam Motor Examination: Present: other (No focal or lateralized us to present today.) Sensation intact: Present: other (She does withdrawal to painful stimuli in all 4 extremities.) Mental Status Examination: Present: awake (Mental status assessment today finds that she is awake, however somewhat lethargic. She does make eye contact, she is able to speak although are not fluently today. She is able to follow some simple commands but not all. She does recognize some family members present. Overall however this is definitely a clinical improvement in comparison to yesterday.), drowsy, lethargic, makes eye contact Cranial nerve examination: Present: PERRL, EOMI, visual barrett intact, mastication intact, no facial asymmetry is present Additional comments: Patient is awake and alert, follows commands and answers questions appropriately , makes eye contact. Cranial nerves II through XII are intact. Motor exam is difficult to cloth bolt bander as it seems to be some give way weakness of both upper and lower extremities. However there are no involuntary movements identified. She does have hemihypesthesia of the left arm and leg. I did not ambulate her today. No clonus is present. Results - Laboratory Findings CBC and BMP: 11/03/16 08:50 11/03/16 08:50 Abnormal lab findings: Abnormal lab results RBC 2.94 M/mcL (3.82-4.97) L 11/03/16 08:50 Hgb 8.8 g/dL (11.5-15.4) L 11/03/16 08:50 Hct 26.2 % (35.3-44.9) L 11/03/16 08:50 MPV 8.8 fL (9.4-12.4) L 11/03/16 08:50 Sodium 135 mEq/L (136-145) L 11/03/16 08:50 Potassium 3.2 mEq/L (3.5-4.5) L 11/03/16 08:50 Creatinine 1.41 mg/dL (0.57-1.11) H 11/03/16 08:50 Est GFR ( Amer) 44 (> 60) L 11/03/16 08:50 Est GFR (Non-Af Amer) 37 (> 60) L 11/03/16 08:50 Glucose 110 mg/dL (70-99) H 11/03/16 08:50 POC Glucose 205 (58-89) H 11/03/16 16:11 Calcium 8.2 mg/dL (8.6-10.8) L 11/03/16 08:50 Phosphorus 1.8 mg/dL (2.3-4.7) L 11/03/16 08:50 Creatine Kinase 385 Units/L (29-168) H 11/01/16 15:56 Albumin 3.3 g/dL (3.5-5.0) L 11/03/16 08:50 Albumin/Globulin Ratio 0.9 (1.1-2.2) L 11/02/16 04:00 Urine Clarity Cloudy (Clear) A 10/31/16 15:08 Urine Protein >=1000 mg/dL (Neg-Trace) H 10/31/16 15:08 Urine Glucose (UA) 100 mg/dL (Normal) H 10/31/16 15:08 Urine Blood Moderate (Negative) H 10/31/16 15:08 Ur Squamous Epith Cells Many per lpf (None-Few) H 10/31/16 15:08 CSF Tot Nucleated Cells 31 TNC/mcL (0-5) H* 11/01/16 14:02 CSF Glucose 129 mg/dL (40-70) H 11/01/16 14:02 CSF Total Protein 60 mg/dL (15-45) H 11/01/16 14:02 Vancomycin Trough 23.9 mcg/mL (10-20) H* 11/03/16 15:03 Consult Discharge Plan - Plan Referrals: Demarco Trevizo MD [Primary Care Provider] - 11/11/16 2:40 pm (Please follow up as schedule..)
[2016-11-04] MEDS: Gabapentin 300 MG CAPSULE PO SCH (08:09)
[2016-11-04] MEDS: Topiramate 25 MG TABLET PO SCH (08:09)
[2016-11-04] MEDS: Venlafaxine XR (24 HR) 150 MG CAP.ER.24H PO SCH (08:09)
[2016-11-04] MEDS: Insulin LISPRO 300 UNITS/3 ML VIAL SQ SCH ×4 (08:13→21:09)
[2016-11-04 10:09] LABS: Basophils % 0.3 %; Eosinophils # 0.3 K/mcL (0.0-0.6); Eosinophils % 4.3 %; Hematocrit 23.8 % (35.3-44.9); Immature Granulocytes % 0.3 % (0-4); Lymphocytes # 1.2 K/mcL (0.6-4.6); Lymphocytes % 20.8 %; Mean Corpuscular HGB Conc 33.6 g/dL (31.6-35.5); Mean Corpuscular Hemoglobin 30.7 pg (28.0-33.3); Mean Corpuscular Volume 91.2 fL (83.0-100.0); Mean Platelet Volume 8.8 fL (9.4-12.4); Monocytes # 0.5 K/mcL (0.0-1.3); Monocytes % 8.9 %; Neutrophils # 3.8 K/mcL (1.6-8.9); Platelet Count 155 K/mcL (140-400); Red Blood Count 2.61 M/mcL (3.82-4.97); Red Cell Distribution Width 13.4 % (11.5-14.5); Segmented Neutrophils % 65.4 %
[2016-11-04 10:20] LABS: Calcium 7.7 mg/dL (8.6-10.8); Potassium 3.6 mEq/L (3.5-4.5)
[2016-11-04] MEDS ORDERED: Acetaminophen 325 MG TABLET PO PRN (12:59)
--- NOTE | 2016-11-04 13:16 | Infectious Disease Progress No ---
Date of Encounter: 11/04/16 Time of Encounter: 13:14 - Assessment and Plan (1) Sepsis Current Visit: Yes Status: Acute The patient had two SIRS criteria 11/01/16 with encephalopathy. Likely secondary to encephalitis. Improved. The patient has been afebrile since 11/02/16. Tachycardia has resolved. Her WBC has remained normal. Blood cultures drawn 11/01/16 are NGTD. Qualifiers: Sepsis type: sepsis due to unspecified organism Qualified Code(s): A41.9 - Sepsis, unspecified organism (2) Encephalitis Current Visit: Yes Status: Acute Causative organism unclear, but high likelihood of HSV given the patient's clinical picture. Patient presented with severe, sudden-onset AMS with garbled speech and agitation. Status post bedside LP by Dr. Burgess. CSF was clear, colorless. TNC 31 with 98% neutrophils and 2% lymphocytes. CSF culture is negative. Although the CSF differential was predominantly neutrophils, it is highly likely that this is a viral encephalitis as it is not uncommon to have neutrophilic predominance early in the course of illness. Discontinue Vancomycin, Ampicillin, and Rocephin. Continue acyclovir 10mg/kg IV Q8H. Await HSV PCR. Duration of treatment depends on the clinical picture, but patient would likely benefit from a full 21 day course of IV acyclovir. Okay to place Powerglide EPIV. Consult geriatric social work professor for discharge planning. Monitor renal function and dose-adjust antibiotics. Monitor neuro status closely. (3) Acute kidney injury superimposed on chronic kidney disease Current Visit: Yes Status: Acute Likely secondary to sepsis. Improved. Monitor renal function and dose-adjust antibiotics. (4) Acute metabolic encephalopathy Current Visit: Yes Status: Acute Secondary to encephalitis and sepsis. Improved. 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 States she feels better today. Denies fevers or chills. Complains of headache, but denies neck or back pain. Denies chest pain, shortness of breath, or cough. Denies nausea, vomiting, or diarrhea. Russell catheter remains patent. Denies oral thrush or skin lesions. Infect Dis PN-Objective Data - Labs CBC & Chem 7: 11/04/16 10:00 11/04/16 10:00 Labs: Laboratory Results - last 24 hr 11/02/16 11/03/16 11/03/16 18:56 05:54 15:03 WBC RBC Hgb Hct MCV MCH MCHC RDW Plt Count MPV Immature Gran % Seg Neutrophils % Lymphocytes % Monocytes % Eosinophils % Basophils % Neutrophils # Lymphocytes # Monocytes # Eosinophils # Basophils # Sodium Potassium Chloride Carbon Dioxide BUN Creatinine Est GFR ( Amer) Est GFR (Non-Af Amer) BUN/Creatinine Ratio Glucose POC Glucose 276 H 226 H Calculated Osmolality Calcium Vancomycin Trough 23.9 H* 11/03/16 11/04/16 11/04/16 16:11 08:06 10:00 WBC 5.9 RBC 2.61 L Hgb 8.0 L Hct 23.8 L MCV 91.2 MCH 30.7 MCHC 33.6 RDW 13.4 Plt Count 155 MPV 8.8 L Immature Gran % 0.3 Seg Neutrophils % 65.4 Lymphocytes % 20.8 Monocytes % 8.9 Eosinophils % 4.3 Basophils % 0.3 Neutrophils # 3.8 Lymphocytes # 1.2 Monocytes # 0.5 Eosinophils # 0.3 Basophils # 0.0 Sodium Potassium Chloride Carbon Dioxide BUN Creatinine Est GFR ( Amer) Est GFR (Non-Af Amer) BUN/Creatinine Ratio Glucose POC Glucose 205 H 194 H Calculated Osmolality Calcium Vancomycin Trough 11/04/16 10:00 WBC RBC Hgb Hct MCV MCH MCHC RDW Plt Count MPV Immature Gran % Seg Neutrophils % Lymphocytes % Monocytes % Eosinophils % Basophils % Neutrophils # Lymphocytes # Monocytes # Eosinophils # Basophils # Sodium 134 L Potassium 3.6 Chloride 106 Carbon Dioxide 21 BUN 15 Creatinine 1.48 H Est GFR ( Amer) 42 L Est GFR (Non-Af Amer) 35 L BUN/Creatinine Ratio 10 Glucose 117 H POC Glucose Calculated Osmolality 280 Calcium 7.7 L Vancomycin Trough - Impressions Impressions Head CT 11/03/16 07:29 IMPRESSION: 1. No convincing acute intracranial abnormality. Questionable hypodensity in the right temporal lobe. If clinical concern persists or if it would alter patient's management, MRI would be more sensitive. 2. Chronic periventricular white matter ischemic changes. D/ / 11/03/2016 08:33:46 Lamberto Chavez MD / lito Interpreting Provider: Lamberto Chavez MD Chest X-Ray 11/03/16 15:04 IMPRESSION: Stable exam with no acute abnormality. D/ / Han Bear MD / Han Bear MD Interpreting Provider: Han Bear MD Exam - Constitutional Vitals: Temp Pulse Resp BP Pulse Ox 98.1 F 62 18 155/81 95 11/04/16 11:21 11/04/16 11:21 11/04/16 11:21 11/04/16 11:21 11/04/16 11:21 General appearance: average body habitus, cooperative, no acute distress - Head Head exam: Present: atraumatic, normal inspection, normocephalic - Eye Eye exam: Present: EOMI, normal appearance, PERRL Pupils: Present: normal accommodation - ENT ENT exam: Present: mucous membranes moist - Neck Neck exam: Present: normal inspection. Absent: meningismus - Respiratory Respiratory exam: Present: CTAB. Absent: rales, respiratory distress, rhonchi, wheezes - Cardiovascular Cardiovascular exam: Present: RRR, +S1, +S2 - GI/Abdominal GI/Abdominal exam: Present: normal bowel sounds, soft. Absent: distended, tenderness - Extremities Exam Extremities exam: Present: normal inspection. Absent: joint swelling, pedal edema, tenderness - Neurological Exam Neurological exam: Present: alert, oriented X3, no focal deficits, strengths equal and symetr throughout Additional comments: Response time to questions and commands is improved compared to yesterday. - Psychiatric Psychiatric exam: Present: normal affect, normal mood - Skin Skin exam: Present: dry, intact, normal color, warm Consult Discharge Plan - Plan Referrals: Demarco Trevizo MD [Primary Care Provider] - 11/11/16 2:40 pm (Please follow up as schedule..)
[2016-11-04] MEDS: *HR* HYDROcodone/Acet 5/325 mg TABLET PO PRN (13:59)
--- NOTE | 2016-11-04 15:11 | Internal Med Progress Note ---
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 ID following. Await HSV PCR. as per ID, Duration of treatment depends on the clinical picture, but patient would likely benefit from a full 21 day course of IV acyclovir. will have to arrange transfer to ECF for IV meds. (2) Acute metabolic encephalopathy Current Visit: Yes Status: Acute Assessment and plan: improved and at baseline. (3) CKD (chronic kidney disease) stage 3, GFR 30-59 ml/min Current Visit: No Status: Chronic Assessment and plan: Chronic. Stable, will continue to monitor. (4) IDDM (insulin dependent diabetes mellitus) Current Visit: No Status: Chronic - Time Spent With Patient 25 - 35 minutes - Subjective Interval history: Patient seen at the bedside, complaining of mild headache. Denies any chest pain, shortness of breath, blurring of vision. Slow to respond however does answer to questions. Patient is being treated for herpes encephalitis, ID and neurology is on board. - Constitutional Vitals: Temp Pulse Resp BP Pulse Ox 98.1 F 62 18 155/81 95 11/04/16 11:21 11/04/16 11:21 11/04/16 11:21 11/04/16 11:21 11/04/16 11:21 General appearance: Present: A&O X 2 (oriented to person and location ), no acute distress Exam: - Head Head exam: Present: atraumatic, normocephalic - Eye Eye exam: Present: normal appearance. Absent: conjunctival injection - ENT ENT exam: Present: mucous membranes moist, normal external ear exam - Neck Neck exam general surgery: Present: supple, trachea midline - Respiratory Respiratory exam: Present: CTAB. Absent: rales, rhonchi, stridor, wheezes - Cardiovascular Cardiovascular exam: Present: RRR, +S1, +S2. Absent: clicks, diastolic murmur, gallop, rubs, systolic murmur - GI/Abdominal GI/Abdominal exam: Present: hypoactive bowel sounds, soft. Absent: distended, guarding, rebound, tenderness - Extremities Exam Extremities exam: Present: normal capillary refill. Absent: pedal edema - Neurological Exam Additional comments: slow speech Internal Medicine: Result - Labs CBC & Chem 7: 11/04/16 10:00 11/04/16 10:00 Labs: Short CBC 11/04/16 Range/Units 10:00 WBC 5.9 (4.3-11.1) K/mcL Hgb 8.0 L (11.5-15.4) g/dL Hct 23.8 L (35.3-44.9) % Plt Count 155 (140-400) K/mcL Neutrophils # 3.8 (1.6-8.9) K/mcL BMP 11/04/16 10:00 Sodium 134 L Potassium 3.6 Chloride 106 Carbon Dioxide 21 BUN 15 Creatinine 1.48 H Glucose 117 H Calcium 7.7 L - ABG Interpretation ABG results: PT/INR, D-dimer PT 11.5 Seconds (9.4-12.1) 10/31/16 12:10 - Impressions Impressions Head CT 11/03/16 07:29 IMPRESSION: 1. No convincing acute intracranial abnormality. Questionable hypodensity in the right temporal lobe. If clinical concern persists or if it would alter patient's management, MRI would be more sensitive. 2. Chronic periventricular white matter ischemic changes. D/ / 11/03/2016 08:33:46 Lamberto Chavez MD / lito Interpreting Provider: Lamberto Chavez MD Chest X-Ray 11/03/16 15:04 IMPRESSION: Stable exam with no acute abnormality. D/ / Han Bear MD / Han Bear MD Interpreting Provider: Han Bear MD Consult Discharge Plan - Plan Referrals: Demarco Trevizo MD [Primary Care Provider] - 11/11/16 2:40 pm (Please follow up as schedule..)
[2016-11-04] MEDS: 0.9 % Sodium Chloride 1,000 ML IVC SCH (16:51)
[2016-11-05] MEDS: *HR* HYDROcodone/Acet 5/325 mg TABLET PO PRN (02:15)
[2016-11-05] MEDS: Acyclovir 600 MG in D5% in Water 100 ML IVPB SCH ×2 (03:29→15:11)
[2016-11-05 03:46] LABS: Basophils % 0.3 %; Eosinophils # 0.3 K/mcL (0.0-0.6); Hematocrit 24.8 % (35.3-44.9); Hemoglobin 8.2 g/dL (11.5-15.4); Immature Granulocytes % 0.5 % (0-4); Lymphocytes # 1.7 K/mcL (0.6-4.6); Lymphocytes % 29.3 %; Mean Corpuscular HGB Conc 33.1 g/dL (31.6-35.5); Mean Corpuscular Hemoglobin 30.4 pg (28.0-33.3); Mean Corpuscular Volume 91.9 fL (83.0-100.0); Mean Platelet Volume 9.3 fL (9.4-12.4); Monocytes # 0.5 K/mcL (0.0-1.3); Monocytes % 9.2 %; Neutrophils # 3.2 K/mcL (1.6-8.9); Platelet Count 165 K/mcL (140-400); Red Cell Distribution Width 13.4 % (11.5-14.5); Segmented Neutrophils % 55.7 %
[2016-11-05 03:58] LABS: Potassium 3.9 mEq/L (3.5-4.5)
[2016-11-05 03:59] LABS: Calcium 7.8 mg/dL (8.6-10.8)
[2016-11-05] MEDS: *HR* Heparin 5,000 UNIT/ML VIAL SQ SCH ×2 (05:14→12:17)
[2016-11-05] MEDS: 0.9 % Sodium Chloride 1,000 ML IVC SCH ×4 (08:49→12:18)
[2016-11-05] MEDS: Insulin LISPRO 300 UNITS/3 ML VIAL SQ SCH ×2 (08:50→12:17)
[2016-11-05] MEDS ORDERED: amLODIPine 5 MG TABLET PO SCH (09:00)
[2016-11-05] MEDS: Gabapentin 300 MG CAPSULE PO SCH (09:06)
[2016-11-05] MEDS: Venlafaxine XR (24 HR) 150 MG CAP.ER.24H PO SCH (09:06)
[2016-11-05] MEDS: Topiramate 25 MG TABLET PO SCH (09:06)
--- NOTE | 2016-11-05 10:14 | Infectious Disease Progress No ---
Date of Encounter: 11/05/16 Time of Encounter: 10:12 - Assessment and Plan (1) Sepsis Current Visit: Yes Status: Resolved The patient had two SIRS criteria 11/01/16 with encephalopathy. Likely secondary to encephalitis. Improved. The patient has been afebrile since 11/02/16. Tachycardia has resolved. Her WBC has remained normal. Blood cultures drawn 11/01/16 are negtive. Qualifiers: Sepsis type: sepsis due to unspecified organism Qualified Code(s): A41.9 - Sepsis, unspecified organism (2) Encephalitis Current Visit: Yes Status: Acute Causative organism unclear, but high likelihood of HSV given the patient's clinical picture. Patient presented with severe, sudden-onset AMS with garbled speech and agitation. Status post bedside LP by Dr. Burgess. CSF was clear, colorless. TNC 31 with 98% neutrophils and 2% lymphocytes. CSF culture is negative. Although the CSF differential was predominantly neutrophils, it is highly likely that this is a viral encephalitis as it is not uncommon to have neutrophilic predominance early in the course of illness. Continue acyclovir 10mg/kg IV Q8H. Await HSV PCR. Duration of treatment depends on the clinical picture, but patient would likely benefit from a full 21 day course of IV acyclovir. Treat through 11/22/14. Powerglide EPIV placed 11/05/16. Consult healthcare social worker for discharge planning. Monitor renal function and dose-adjust antibiotics. Monitor neuro status closely. Get weekly CBC and BMP for duration of treatment. Weekly Powerglide care. Follow up with ID 11/19/16 at 0900. (3) Acute kidney injury superimposed on chronic kidney disease Current Visit: Yes Status: Acute Likely secondary to sepsis. Improved. Monitor renal function and dose-adjust antibiotics. (4) Acute metabolic encephalopathy Current Visit: Yes Status: Acute Secondary to encephalitis and sepsis. Improved. (5) Diabetes mellitus Current Visit: Yes Status: Chronic Qualifiers: Diabetes mellitus type: type 2 Diabetes mellitus complication status: with unspecified complications Diabetes mellitus exterminator helper termite insulin use: with exterminator helper termite use Qualified Code(s): E11.8 - Type 2 diabetes mellitus with unspecified complications; Z79.4 - exterminator helper termite (current) use of insulin - Subjective Interval history: Patient seen and examined. No acute events noted overnight. States she feels better today. Denies fevers or chills. Complains of headache, but denies neck or back pain. Denies chest pain, but does report some shortness of breath and cough productive of yellow sputum. Complains of nausea and was unable to eat breakfast this morning. Denies nausea. Complains of RLQ abdominal pain. Reports three loose stools per day. Russell catheter remains patent. Denies skin lesions. Complains of her mouth being sore. Infect Dis PN-Objective Data - Labs CBC & Chem 7: 11/05/16 03:30 11/05/16 03:30 Labs: Laboratory Results - last 24 hr 11/04/16 11/04/16 11/04/16 10:00 10:53 16:14 WBC RBC Hgb Hct MCV MCH MCHC RDW Plt Count MPV Immature Gran % Seg Neutrophils % Lymphocytes % Monocytes % Eosinophils % Basophils % Neutrophils # Lymphocytes # Monocytes # Eosinophils # Basophils # Sodium 134 L Potassium 3.6 Chloride 106 Carbon Dioxide 21 BUN 15 Creatinine 1.48 H Est GFR ( Amer) 42 L Est GFR (Non-Af Amer) 35 L BUN/Creatinine Ratio 10 Glucose 117 H POC Glucose 98 H 262 H Calculated Osmolality 280 Calcium 7.7 L 11/04/16 11/05/16 11/05/16 20:56 03:30 03:30 WBC 5.8 RBC 2.70 L Hgb 8.2 L Hct 24.8 L MCV 91.9 MCH 30.4 MCHC 33.1 RDW 13.4 Plt Count 165 MPV 9.3 L Immature Gran % 0.5 Seg Neutrophils % 55.7 Lymphocytes % 29.3 Monocytes % 9.2 Eosinophils % 5.0 Basophils % 0.3 Neutrophils # 3.2 Lymphocytes # 1.7 Monocytes # 0.5 Eosinophils # 0.3 Basophils # 0.0 Sodium 136 Potassium 3.9 Chloride 110 H Carbon Dioxide 20 BUN 16 Creatinine 1.52 H Est GFR ( Amer) 41 L Est GFR (Non-Af Amer) 34 L BUN/Creatinine Ratio 11 Glucose 98 POC Glucose 135 H Calculated Osmolality 283 Calcium 7.8 L - Impressions Impressions Head CT 11/03/16 07:29 IMPRESSION: 1. No convincing acute intracranial abnormality. Questionable hypodensity in the right temporal lobe. If clinical concern persists or if it would alter patient's management, MRI would be more sensitive. 2. Chronic periventricular white matter ischemic changes. D/ / 11/03/2016 08:33:46 Lamberto Chavez MD / lito Interpreting Provider: Lamberto Chavez MD Exam - Constitutional Vitals: Temp Pulse Resp BP Pulse Ox 98.5 F 77 16 191/81 98 11/05/16 07:20 11/05/16 07:20 11/05/16 07:20 11/05/16 07:20 11/05/16 07:20 General appearance: average body habitus, cooperative, no acute distress - Head Head exam: Present: atraumatic, normal inspection, normocephalic - Eye Eye exam: Present: EOMI, normal appearance, PERRL Pupils: Present: normal accommodation - ENT ENT exam: Present: mucous membranes moist Additional comments: Oral thrush plaques noted to the tongue and buccal mucosa. - Neck Neck exam: Present: normal inspection Additional comments: TL CVC noted to the right neck with transparent dressing C/D/I. No nuchal rigidity noted. Ecchymosis noted under the chin to the anterior neck. - Respiratory Respiratory exam: Present: CTAB. Absent: rales, respiratory distress, rhonchi, wheezes - Cardiovascular Cardiovascular exam: Present: RRR, +S1, +S2 - GI/Abdominal GI/Abdominal exam: Present: normal bowel sounds, soft, tenderness (RLQ). Absent : distended Additional comments: Russell catheter patent draining clear yellow urine. - Extremities Exam Extremities exam: Present: normal inspection. Absent: joint swelling, pedal edema, tenderness - Neurological Exam Neurological exam: Present: alert, oriented X3, no focal deficits Additional comments: Follows commands. Answers questions appropriately. Still a little slow to respond to questions. Unable to recall her birthday, but knows her full name. - Psychiatric Psychiatric exam: Present: normal affect, normal mood - Skin Skin exam: Present: dry, intact, normal color, warm Consult Discharge Plan - Plan Referrals: Demarco Trevizo MD [Primary Care Provider] - 11/11/16 2:40 pm (Please follow up as schedule..) Shama Briceño, LITIGATION ASSOCIATE [Advanced Practice Nurse] - 11/19/16 9:00 am
--- NOTE | 2016-11-05 10:33 | Physician Discharge Referral ---
ExtendedCare Referral Info Transfer To: f Provider in Charge: tennille estrada Institutional Level of Care: Intermediate - MR - Diagnosis (1) Herpes encephalitis Status: Suspected (2) Acute metabolic encephalopathy Status: Acute (3) CKD (chronic kidney disease) stage 3, GFR 30-59 ml/min Status: Chronic (4) IDDM (insulin dependent diabetes mellitus) Status: Chronic - Transfer Medications Home Medications: Insulin ASPART [NovoLOG] 5 unit SQ TID 07/30/15 [History] Montelukast [Singulair] 10 mg PO QPM 07/30/15 [History] Topiramate [Topamax] 50 mg PO DAILY 07/30/15 [History] TraZODone 50 mg PO HS PRN 07/30/15 [History] Zolpidem [Ambien] 5 mg PO HS PRN 07/30/15 [History] Aspirin 81 mg PO DAILY #90 tab.chew 11/21/15 [Rx] Albuterol Sulfate [Albuterol Inhaler] 2 puff IH Q6H PRN 09/08/16 [History] Aripiprazole [Abilify] 2 mg PO DAILY 09/08/16 [History] Atorvastatin [Lipitor] 40 mg PO HS 09/08/16 [History] Clopidogrel [Plavix] 75 mg PO DAILY 09/08/16 [History] Colesevelam [Welchol] 1,875 mg PO BIDWM 09/08/16 [History] Docusate [Colace] 100 mg PO BID #60 capsule 09/08/16 [Rx] Esomeprazole Magnesium [Nexium] 40 mg PO BID 09/08/16 [History] Gabapentin [Neurontin] 600 mg PO DAILY 09/08/16 [History] Guaifenesin [Mucinex] 600 mg PO Q12H 09/08/16 [History] HYDROcodone/Acet 5/325 mg [Adamant 5-325 mg] 1 tab PO Q4H PRN #10 tab 09/08/16 [Rx ] Insulin DETEMIR [Levemir Flextouch] 30 unit SQ HS 09/08/16 [History] Loratadine [Allergy Relief] 10 mg PO DAILY 09/08/16 [History] Metoclopramide [Reglan] 10 mg PO QIDAC 09/08/16 [History] Metoprolol [Lopressor] 25 mg PO BID 09/08/16 [History] Pioglitazone HCl [Actos] 45 mg PO DAILY 09/08/16 [History] Sodium Bicarbonate 650 mg PO BID 09/08/16 [History] Venlafaxine HCl [Venlafaxine HCl ER] 150 mg PO DAILY 09/08/16 [History] Ondansetron ODT [Zofran ODT] 4 mg SL Q8HR #14 tab.rapdis 10/24/16 [Rx] Allergies/Adverse Reactions: Allergies Iodinated Contrast Media - Oral and [Iodinated Contrast Media - IV Dye] Allergy (Verified 09/08/16 08:19) Anaphylaxis codeine Adverse Reaction (Verified 09/08/16 08:19) Gastrointestinal Upset - Respiratory Orders Smoking Cessation: Smoking cessation has been advised. For more information, call the [place] Tobacco Quit Line at 0-321-XQPN-NOW. - Advance Directives Code Status: Full Code - Mobility Orders Chair - Rehabiliation Orders Rehab Potential: Fair Rehab Orders: Evaluation for Physical Therapy, Evaluation for Occupational Therapy - Diet Orders Regular CERTIFICATION: I certify that the transfer of the above named patient to an Extended Care Facility is necessary for the continuing treatment of the diagnosis listed. The above information is true and accurate reflection of patient's current condition. Confidential - Redisclosure prohibited without a patient's written consent.
--- NOTE | 2016-11-05 12:54 | Discharge Summary ---
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 (2) Acute metabolic encephalopathy Priority: Primary Status: Acute (3) CKD (chronic kidney disease) stage 3, GFR 30-59 ml/min Priority: Secondary Status: Chronic (4) IDDM (insulin dependent diabetes mellitus) Priority: Secondary Status: Chronic - Discharge Medications Prescriptions: HYDROcodone/Acet 5/325 mg [Ocate 5-325 mg] 1 tab PO Q8HR PRN #30 tablet PRN Reason: Severe Pain (7-10) Acyclovir [Zovirax] 600 mg IV Q12H 16 Days Home Medications: Insulin ASPART [NovoLOG] 5 unit SQ TID 07/30/15 [History] Montelukast [Singulair] 10 mg PO QPM 07/30/15 [History] Topiramate [Topamax] 50 mg PO DAILY 07/30/15 [History] TraZODone 50 mg PO HS PRN 07/30/15 [History] Zolpidem [Ambien] 5 mg PO HS PRN 07/30/15 [History] Aspirin 81 mg PO DAILY #90 tab.chew 11/21/15 [Rx] Albuterol Sulfate [Albuterol Inhaler] 2 puff IH Q6H PRN 09/08/16 [History] Aripiprazole [Abilify] 2 mg PO DAILY 09/08/16 [History] Atorvastatin [Lipitor] 40 mg PO HS 09/08/16 [History] Clopidogrel [Plavix] 75 mg PO DAILY 09/08/16 [History] Colesevelam [Welchol] 1,875 mg PO BIDWM 09/08/16 [History] Docusate [Colace] 100 mg PO BID #60 capsule 09/08/16 [Rx] Esomeprazole Magnesium [Nexium] 40 mg PO BID 09/08/16 [History] Gabapentin [Neurontin] 600 mg PO DAILY 09/08/16 [History] Guaifenesin [Mucinex] 600 mg PO Q12H 09/08/16 [History] HYDROcodone/Acet 5/325 mg [Ocate 5-325 mg] 1 tab PO Q4H PRN #10 tab 09/08/16 [Rx ] Insulin DETEMIR [Levemir Flextouch] 30 unit SQ HS 09/08/16 [History] Loratadine [Allergy Relief] 10 mg PO DAILY 09/08/16 [History] Metoclopramide [Reglan] 10 mg PO QIDAC 09/08/16 [History] Metoprolol [Lopressor] 25 mg PO BID 09/08/16 [History] Pioglitazone HCl [Actos] 45 mg PO DAILY 09/08/16 [History] Sodium Bicarbonate 650 mg PO BID 09/08/16 [History] Venlafaxine HCl [Venlafaxine HCl ER] 150 mg PO DAILY 09/08/16 [History] Ondansetron ODT [Zofran ODT] 4 mg SL Q8HR #14 tab.rapdis 10/24/16 [Rx] Acyclovir [Zovirax] 600 mg IV Q12H 16 Days 11/05/16 [Rx] HYDROcodone/Acet 5/325 mg [Ocate 5-325 mg] 1 tab PO Q8HR PRN #30 tablet [Rx] Allergies/Adverse Reactions: Allergies Iodinated Contrast Media - Oral and [Iodinated Contrast Media - IV Dye] Allergy (Verified 09/08/16 08:19) Anaphylaxis codeine Adverse Reaction (Verified 09/08/16 08:19) Gastrointestinal Upset Procedures/tests Complete & Pending: Procedures Performed prior 72 hours Category Date Time Status CT head/brain wo con [CT] Stat Cat Scan 11/03/16 07:29 Completed Date of admission: 11/02/16 11:26 Primary care physician: Demarco Trevizo MD Consults: 11/03/16 07:37 Consult to Occupational Therapy [CONS] Routine Comment: Evaluate, develop and implement POC 11/03/16 09:28 Consult to Infectious Diseases [CONS] Routine Consulting Provider: Infectious Disease Adela Reason for Consult: altered mental status, concerns for viral encephalitis likely herpes encephalitis Time Notified: 09:29 Call Completed: Yes Discharging clinician: Jona Serrano Anticipated date of discharge: 11/05/16 - Patient Status Disposition: Transfer SNF Condition: Fair Functional capacity at discharge: bed bound Overall status at discharge: patient is back to baseline - Discharge Instructions Follow Up With: Demarco Trevizo MD [Primary Care Provider] - 11/11/16 2:40 pm (Please follow up as schedule..) Shama Briceño, CHEMICAL ENGINEER [Advanced Practice Nurse] - 11/19/16 9:00 am - Diet and Activity Activity: as per physical therapy Diet: advance to your usual diet Interval History: Ms. Rain is a 75 year old female presented for fever with AMS> according to her son when he left the home that morning to go for his dialysis treatment at about 5:30 AM she was normal. When he returned at about 9:30 she seemed to have some right-sided weakness and sided facial droop and seemed to be somewhat lethargic. CT head negative, MRI head negative No evidence of metabolic cause on lab work. No evidence of infection on chest xray or urinalysis Carotid doppler significant for mild narrowing at bifurcation with no blockage Echocardiogram appears normal however limited by motion artifact. neurology was consulted and started on empiric acyclovir, Rocephin, and ampicillin for possible encephalitis. LP was done, CSF fluid gram stain negative CSF was clear, colorless. TNC 31 with 98% neutrophils and 2% lymphocytes. CSF culture is NGTD, no bacteria on microscopy. ID was also consulted, Although the CSF differential was predominantly neutrophils, it is highly likely that this is a viral encephalitis as it is not uncommon to have neutrophilic predominance early in the course of illness. The EEG did not reveal seizure activity. Blood cultures drawn 11/01/16 are NGTD. Vancomycin, Ampicillin, and Rocephin was dc and she was Continued on acyclovir 10mg/kg IV Q8H given high possibility of viral encephalitis. patient improved clinically with improvement in the mental status to almost baseline. Duration of treatment as recommended by ID to be 21 day full course of IV acyclovir. she is being dc in stable condition to SNF with IV acyclovir to complete 21 days of therapy for herpes encephalitis. Hospital course: Ms. Rain is a 75 year old female Time spent discussing smoking cessation with patient: more than 10 minutes - Time Spent with Patient Total time spent providing and/or coordinating discharge services: Greater than 30 minutes - Constitutional Vitals: Temp Pulse Resp BP Pulse Ox 98.3 F 68 16 172/81 96 11/05/16 11:48 11/05/16 11:48 11/05/16 11:48 11/05/16 11:48 11/05/16 11:48 General appearance: Present: A&O X 2 (oriented to person and location ), no acute distress Exam: - Head Head exam: Present: atraumatic, normal inspection, normocephalic - Eye Eye exam: Present: EOMI, normal appearance, PERRL Pupils: Present: normal accommodation - ENT ENT exam: Present: mucous membranes moist - Neck Neck exam: Present: normal inspection. Absent: meningismus - Respiratory Respiratory exam: Present: CTAB. Absent: rales, respiratory distress, rhonchi, wheezes - Cardiovascular Cardiovascular exam: Present: RRR, +S1, +S2 - GI/Abdominal GI/Abdominal exam: Present: distended (obese), normal bowel sounds, soft, tenderness (generalized) - Extremities Exam Extremities exam: Present: normal inspection. Absent: joint swelling, pedal edema, tenderness - Neurological Exam Neurological exam: Present: alert, oriented X2, no focal deficits - Skin Skin exam: Present: dry, intact, normal color, warm
[2016-11-05 14:59] VITALS: BP 154/84
== END 2016-11-05 16:28 | DRG 871 ==
LOC: 2ANU 11:50 → EMEROO 11:50 → 2ANU 16:57 → SUATTDRO 11-02 11:26
PROVIDERS: ADMIT Nurse Practitioner Family; ATTEND Internal Medicine Endocrinology, Diabetes & Metabolism

== ENCOUNTER 2017-01-08 17:00 | Observation (INO) ==
--- NOTE | 2017-01-08 17:37 | Emergency Department Note ---
START Narrative - START START: I examined this patient and my medical decision-making was reviewed with the LIQUID WAST[employer] T[employer]ATMENT PLANT OPERATOR/PA/Advanced Practice Nurse/Resident Physician. I agree with the documented findings, disposition and treatment plan as described except to the extent set forth below. The patient does have a history of a stroke in the past and presents today with weakness of the left arm and leg which began at 9:30 this morning at home and the worsening of 3:30 this afternoon. It appears she does have some difficulty with speaking. This is concerning for stroke however the patient is not a thrombolytic candidate due to long duration of symptoms. Head CT and labs are ordered and are pending. The patient is alert and oriented in no specific distress. Color is good. No diaphoresis. Does have a headache which started gradually this afternoon 1736 I did review the patient's EKG showing normal sinus rhythm with a rate of 62 without acute ischemic change. There is an isolated flipped T wave in aVL but there are not ischemic changes in leads V1, V5 or V6. 1633
--- NOTE | 2017-01-08 17:42 | Emergency Department Note ---
Disposition Clinical Impression: Left arm weakness, Left leg weakness CVA (cerebral vascular accident) Qualifiers: CVA mechanism: unspecified Qualified Code(s): I63.9 - Cerebral infarction, unspecified Disposition: Admitted As Inpatient Condition: Fair Time of Disposition: 20:18 Weakness HPI - General Chief complaint: ED Chest Pain Stated complaint: high glucose, chest pain, L sided weakness Time Seen by Provider: 01/08/17 17:05 Source: patient, EMS - History of Present Illness HPI Narrative: Patient is a 76-year-old female who presents with a past medical history of CVA , TIA, atrial fibrillation, diabetes, HLD, HTN, PAD, seizure, asthma, and arthritis, osteoporosis, GERD who presents with left-sided weakness that began this morning. Patient states that around 9 AM she began to notice left-sided weakness. Patient does admit to left-sided weakness at baseline from her previous CVA. Patient states that weakness worsened until approximately 3:30 this afternoon. Patient denies having this new weakness yesterday. Patient also admits to left shoulder, neck, and chest pain. Patient states that her blood glucose was 501 this morning. She did take an extra 5u of Novalog after these elevated blood sugars. Denies fever, chills, abdominal pain, muscle aches. Pain Scale: 6 - Related Data Home Medications Medication Instructions Recorded Confirmed Insulin ASPART [NovoLOG] 5 unit SQ TIDWM 07/30/15 01/08/17 Montelukast [Singulair] 10 mg PO QPM 07/30/15 01/08/17 Topiramate [Topamax] 50 mg PO DAILY 07/30/15 01/08/17 TraZODone 50 mg PO HS PRN 07/30/15 01/08/17 Zolpidem [Ambien] 5 mg PO HS PRN 07/30/15 01/08/17 ARIPiprazole [Abilify] 2 mg PO DAILY 09/08/16 01/08/17 Albuterol Sulfate [Albuterol 2 puff IH Q6H PRN 09/08/16 01/08/17 Inhaler] Atorvastatin [Lipitor] 40 mg PO HS 09/08/16 01/08/17 Clopidogrel [Plavix] 75 mg PO DAILY 09/08/16 10/31/16 Colesevelam [Welchol] 1,875 mg PO BIDWM 09/08/16 01/08/17 Esomeprazole Magnesium [Nexium] 40 mg PO BID 09/08/16 01/08/17 Gabapentin [Neurontin] 600 mg PO BID 09/08/16 01/08/17 Guaifenesin [Mucinex] 600 mg PO Q12H 09/08/16 01/08/17 Insulin DETEMIR [Levemir Flextouch] 30 unit SQ HS 09/08/16 01/08/17 Loratadine [Allergy Relief] 10 mg PO DAILY 09/08/16 01/08/17 Metoclopramide [Reglan] 10 mg PO QIDAC 09/08/16 01/08/17 Metoprolol [Lopressor] 25 mg PO BID 09/08/16 01/08/17 Pioglitazone HCl [Actos] 45 mg PO DAILY 09/08/16 01/08/17 Sodium Bicarbonate 650 mg PO BID 09/08/16 01/08/17 Venlafaxine HCl [Venlafaxine HCl 150 mg PO DAILY 09/08/16 01/08/17 ER] Acetaminophen [Tylenol] 500 mg PO Q6HR PRN 01/08/17 01/08/17 Omeprazole [PriLOSEC] 40 mg PO DAILY 01/08/17 01/08/17 Previous Rx's Medication Instructions Recorded Aspirin 81 mg PO DAILY #90 tab.chew 11/21/15 Docusate [Colace] 100 mg PO BID #60 capsule 09/08/16 Allergies Allergy/AdvReac Type Severity Reaction Status Date / Time Iodinated Contrast- Oral and Allergy Anaphylaxis Verified 01/08/17 17:08 IV Dye [Iodinated Contrast Media - IV Dye] codeine AdvReac Gastrointestinal Verified 01/08/17 17:08 Upset All systems ED: reviewed and negative except as stated. Constitutional: Reports: as per HPI Eyes: Reports: as per HPI ENT ED: Reports: as per HPI Cardiovascular: Reports: as per HPI Respiratory: Reports: as per HPI Gastrointestinal: Reports: as per HPI Genitourinary: Reports: as per HPI Musculoskeletal: Reports: as per HPI Integumentary: Reports: as per HPI Neurological: Reports: as per HPI Psychiatric: Reports: as per HPI Endocrine: Reports: as per HPI Hematological/Lymphatic: Reports: as per HPI Allergic/Immunologic: Reports: as per HPI Past Medical History - Past Medical History Medical history: Reports: arthritis, asthma, atrial fibrillation, CVA, diabetes , GERD, hyperlipidemia, hypertension, osteoporosis, peripheral artery disease, seizures, TIA, other Surgical history: Reports: other (Bilateral tubal ligation) Psychiatric history: Reports: anxiety 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 - Social History Smoking Status: Never smoker Smokeless Tobacco Status: No Alcohol use: Reports: none Drug use: Reports: none Physical Exam GENERAL: Awake, alert, and oriented X 3, pleasant affect, well-nourished, well- dressed HEAD: NC/AT EYES: Red reflex intact bilaterally, pupils equal, round, and reactive to light and accommodation, extraocular muscles intact bilaterally Nose: No drainage, no epistaxis Mouth: Oral mucosa moist, no oral ulcers Neck: Trachea midline CARDIO: S1, S2, RRR, no murmur appreciated PULMONARY: Decreased lung sounds bilaterally, no rales, no rhonchi, no wheezing ABDOMEN: Obese, non-distended, non-tender, bowel sounds normoactive, bilateral flank tenderness MUSCULOSKELETAL: No tenderness to palpation NEURO: Cranial nerves II through XII grossly intact, muscle strength 5 out of 5 to right upper and right lower extremity, strength 2 out of 5 to left upper and left lower extremity. Reflexes are 2/4 upper and lower extremities, Babinski is downgoing bilaterally, no pronator drift - General General appearance: alert, in no apparent distress Course - Reevaluation(s) Reevaluation #1: He should CT head is negative for acute intracranial abnormality. Due to patient's symptoms of left extremity weakness, I have called the hospitalist team to admit the patient for stroke. The hospitalist has accepted the patient. I have ordered MRI and brain without contrast that will be followed by the hospitalist team. Time: 20:00 Vital Signs Temperature 98.6 F 01/08/17 17:03 Pulse Rate 63 01/08/17 17:03 Respiratory Rate 16 01/08/17 17:03 Blood Pressure 138/102 01/08/17 17:03 O2 Sat by Pulse Oximetry 98 01/08/17 17:03 Temperature 98.4 F 01/08/17 21:46 Pulse Rate 67 01/08/17 21:46 Respiratory Rate 15 01/08/17 21:46 Blood Pressure 149/52 01/08/17 21:46 O2 Sat by Pulse Oximetry 96 01/08/17 21:46 Oxygen Delivery Oxygen Delivery Room Air Weakness - MDM Narrative Medical decision making narrative: Patient presents with acute worsening of left-sided weakness. She did admit to an elevated blood glucose is morning. On exam, patient does have left upper and left lower extremity weakness. It is very difficult to determine whether this is significant left sided weakness is chronic or new. I did not appreciate any focal neurologic deficits to cranial nerves. I will obtain a CT head without contrast to determine if this is truly a CVA. The CT head is pending at this time. Given the onset of symptms at 09:00 this am, patient is not a candidate for tPA. - Lab Data Lab results reviewed: Yes I reviewed the patient's lab results. Result diagrams: 01/08/17 18:12 01/08/17 18:12 Lab Results 01/08/17 01/08/17 01/08/17 Range/Units 17:05 18:12 18:12 WBC 7.3 (4.3-11.1) K/mcL RBC 3.53 L (3.82-4.97) M/mcL Hgb 11.2 L (11.5-15.4) g/dL Hct 34.5 L (35.3-44.9) % MCV 97.7 (83.0-100.0) fL MCH 31.7 (28.0-33.3) pg MCHC 32.5 (31.6-35.5) g/dL RDW 14.3 (11.5-14.5) % Plt Count 230 (140-400) K/mcL MPV 9.2 L (9.4-12.4) fL Immature Gran % 0.1 (0-4) % Seg Neutrophils % 52.4 % Lymphocytes % 33.4 % Monocytes % 7.4 % Eosinophils % 6.3 % Basophils % 0.4 % Neutrophils # 3.8 (1.6-8.9) K/mcL Lymphocytes # 2.4 (0.6-4.6) K/mcL Monocytes # 0.5 (0.0-1.3) K/mcL Eosinophils # 0.5 (0.0-0.6) K/mcL Basophils # 0.0 (0.0-0.2) K/mcL Sodium 138 (136-145) mEq/L Potassium 4.2 (3.5-4.5) mEq/L Chloride 107 (98-109) mEq/L Carbon Dioxide 19 (19-29) mEq/L BUN 49 H (7-20) mg/dL Creatinine 2.56 H (0.57-1.11) mg/dL Est GFR ( Amer) 22 L (> 60) Est GFR (Non-Af Amer) 18 L (> 60) BUN/Creatinine Ratio 19 (6-26) Glucose 55 L (70-99) mg/dL POC Glucose 159 H (58-89) Calculated Osmolality 297 (280-300) Calcium 10.0 (8.6-10.8) mg/dL Magnesium (1.6-2.6) mg/dL Total Bilirubin 0.3 (0.2-1.2) mg/dL AST 26 (5-34) Units/L ALT 18 (0-55) Units/L Alkaline Phosphatase 124 (38-126) Units/L Troponin I (0-0.03) ng/mL Serum Total Protein 8.7 H (6.0-8.3) g/dL Albumin 4.1 (3.5-5.0) g/dL Globulin 4.6 H (2.4-3.5) g/dL Albumin/Globulin Ratio 0.9 L (1.1-2.2) 01/08/17 01/08/17 Range/Units 18:12 18:12 WBC (4.3-11.1) K/mcL RBC (3.82-4.97) M/mcL Hgb (11.5-15.4) g/dL Hct (35.3-44.9) % MCV (83.0-100.0) fL MCH (28.0-33.3) pg MCHC (31.6-35.5) g/dL RDW (11.5-14.5) % Plt Count (140-400) K/mcL MPV (9.4-12.4) fL Immature Gran % (0-4) % Seg Neutrophils % % Lymphocytes % % Monocytes % % Eosinophils % % Basophils % % Neutrophils # (1.6-8.9) K/mcL Lymphocytes # (0.6-4.6) K/mcL Monocytes # (0.0-1.3) K/mcL Eosinophils # (0.0-0.6) K/mcL Basophils # (0.0-0.2) K/mcL Sodium (136-145) mEq/L Potassium (3.5-4.5) mEq/L Chloride (98-109) mEq/L Carbon Dioxide (19-29) mEq/L BUN (7-20) mg/dL Creatinine (0.57-1.11) mg/dL Est GFR ( Amer) (> 60) Est GFR (Non-Af Amer) (> 60) BUN/Creatinine Ratio (6-26) Glucose (70-99) mg/dL POC Glucose (58-89) Calculated Osmolality (280-300) Calcium (8.6-10.8) mg/dL Magnesium 2.0 (1.6-2.6) mg/dL Total Bilirubin (0.2-1.2) mg/dL AST (5-34) Units/L ALT (0-55) Units/L Alkaline Phosphatase (38-126) Units/L Troponin I 0.00 (0-0.03) ng/mL Serum Total Protein (6.0-8.3) g/dL Albumin (3.5-5.0) g/dL Globulin (2.4-3.5) g/dL Albumin/Globulin Ratio (1.1-2.2) - Radiology Data Radiology results reviewed: Yes I reviewed the patient's radiology results. Chest X-Ray 01/08/17 17:42 IMPRESSION: 1. No acute cardiopulmonary disease. 2. Cardiomegaly. D/ / 01/08/2017 18:54:01 Mary Townsend MD / [email or web address] Interpreting Provider: Mary Townsend MD Head CT 01/08/17 17:45 IMPRESSION: No acute intracranial abnormality as discussed. D/ / Gregorio Stanley MD / Gregorio Stanley MD Interpreting Provider: Gregorio Stanley MD - EKG Data EKG attestation: Yes I reviewed and interpreted this EKG. EKG results narrative: EKG demonstrates normal sinus rhythm at a rate of [address] segment changes. T-wave inversion to lead aVL.
[2017-01-08 18:22] LABS: Basophils % 0.4 %; Eosinophils # 0.5 K/mcL (0.0-0.6); Eosinophils % 6.3 %; Hematocrit 34.5 % (35.3-44.9); Hemoglobin 11.2 g/dL (11.5-15.4); Immature Granulocytes % 0.1 % (0-4); Lymphocytes # 2.4 K/mcL (0.6-4.6); Lymphocytes % 33.4 %; Mean Corpuscular HGB Conc 32.5 g/dL (31.6-35.5); Mean Corpuscular Hemoglobin 31.7 pg (28.0-33.3); Mean Corpuscular Volume 97.7 fL (83.0-100.0); Mean Platelet Volume 9.2 fL (9.4-12.4); Monocytes # 0.5 K/mcL (0.0-1.3); Monocytes % 7.4 %; Neutrophils # 3.8 K/mcL (1.6-8.9); Platelet Count 230 K/mcL (140-400); Red Blood Count 3.53 M/mcL (3.82-4.97); Red Cell Distribution Width 14.3 % (11.5-14.5); Segmented Neutrophils % 52.4 %
[2017-01-08 18:39] LABS: Albumin 4.1 g/dL (3.5-5.0); Albumin/Globulin Ratio 0.9 (1.1-2.2); Bilirubin,Total 0.3 mg/dL (0.2-1.2); Globulin 4.6 g/dL (2.4-3.5); Potassium 4.2 mEq/L (3.5-4.5); Total Protein 8.7 g/dL (6.0-8.3)
[2017-01-08] MEDS ORDERED: *HR* LORazepam 0.5 MG TABLET ONE (20:53)
[2017-01-08] MEDS ORDERED: *HR* LORazepam 1 MG TABLET PO ONE (20:57)
[2017-01-08] MEDS ORDERED: Naloxone 0.4 MG/ML INJ IVP PRN (22:47)
[2017-01-08] MEDS ORDERED: Acetaminophen 325 MG TABLET PO PRN (22:47)
[2017-01-08] MEDS ORDERED: Ondansetron 4 MG/2 ML VIAL IVP PRN (22:47)
[2017-01-08] MEDS ORDERED: traZODone 50 MG TABLET PO PRN (22:51)
[2017-01-08] MEDS ORDERED: *HR* Dextrose 50 % in Water (Syg) 50 ML SYRINGE IVP PRN (22:55)
[2017-01-08] MEDS ORDERED: D5% in Water 1,000 ML IVC PRN (22:55)
[2017-01-08] MEDS ORDERED: Dextrose Gel 15 GM PO PRN ×2 (22:55)
[2017-01-08] MEDS ORDERED: Insulin DETEMIR 100 UNIT/ML X5UNITS SQ SCH (23:00)
[2017-01-08] MEDS ORDERED: 0.9 % Sodium Chloride 1,000 ML IVC SCH (23:00)
[2017-01-09] MEDS: Insulin LISPRO 300 UNITS/3 ML VIAL SQ SCH ×4 (00:24→17:12)
[2017-01-09 00:33] LABS: Basophils % 0.4 %; Eosinophils # 0.5 K/mcL (0.0-0.6); Hematocrit 30.9 % (35.3-44.9); Hemoglobin 10.2 g/dL (11.5-15.4); Immature Granulocytes % 0.1 % (0-4); Lymphocytes # 2.3 K/mcL (0.6-4.6); Lymphocytes % 31.4 %; Mean Corpuscular Hemoglobin 32.2 pg (28.0-33.3); Mean Corpuscular Volume 97.5 fL (83.0-100.0); Mean Platelet Volume 9.2 fL (9.4-12.4); Monocytes # 0.6 K/mcL (0.0-1.3); Monocytes % 7.6 %; Neutrophils # 3.9 K/mcL (1.6-8.9); Platelet Count 203 K/mcL (140-400); Red Blood Count 3.17 M/mcL (3.82-4.97); Red Cell Distribution Width 14.2 % (11.5-14.5); Segmented Neutrophils % 53.5 %
[2017-01-09 00:46] LABS: Calcium 9.4 mg/dL (8.6-10.8); Chol/HDL Ratio 4.1 (0-4.9); Phosphorous 5.4 mg/dL (2.3-4.7); Potassium 4.2 mEq/L (3.5-4.5)
--- NOTE | 2017-01-09 02:27 | Internal Med History&Physical ---
Date of Encounter: 01/08/17 Time of Encounter: 22:00 Assessment and Plan (1) TIA (transient ischemic attack) Current visit: No Status: Acute Patient has left-sided weakness and slurred speech. She has history of CVA. Patient also mentioned that she has chock or cough when she eats. - CT and MRI negative to infarct. - Symptoms improved. - We will continue cardiac monitoring to rule out arrhythmia. - Echo and duplex of carotid has been ordered. - Speech evaluation at a.m. - Continue closely monitor patient. Qualifiers: Transient cerebral ischemia type: unspecified Qualified Code(s): G45.9 - Transient cerebral ischemic attack, unspecified (2) Chest pain Current visit: Yes Status: Acute Etiology is undetermined. Patient said that she had "heart attack" before. EKG shows nonspecific ST-T change. - We will continue cardiac monitoring. - order her echocardiogram. - track 3 sets of troponin - Patient had stress test one year ago, which is negative. May need repeat stress test, but would like to wait until patient is more stable - Continue aspirin, Plavix, beta ashlee, and statin. Qualifiers: Chest pain type: other chest pain Qualified Code(s): R07.89 - Other chest pain; R07.8 - Other chest pain (3) CKD (chronic kidney disease) stage 3, GFR 30-59 ml/min Current visit: No Status: Chronic Stable, continue home medication. (4) History of CVA (cerebrovascular accident) Current visit: No Status: Chronic Continue aspirin and Plavix. (5) Diabetes mellitus Current visit: No Status: Chronic History of diabetes. Continue basal and sliding security insulin. Closely monitor glucose level. 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 Rain is a 76 year old female present to ER for left sided weakness. Patient has history of CVA and with residual left-sided weakness. This morning around 9 AM, she feel weakness on the left side, with slurred speech. Patient to present to ER in the afternoon and out of the TPA window. Patient's weakness and slurred speech has improved laterly. In ER, CT and MRI head done, result unremarkable. Patient denies headache, dizziness, nausea vomiting. She complained of on and off chest pain and abdominal pain for weeks. Pain is a sharp, radiates to left arm and with some kind of shortness of breath. When I saw her, she has no chest pain. I discussed the CODE STATUS with patient. She is full code Past Med Surg Social Fam HX - Past Medical History Medical history: arthritis, asthma, atrial fibrillation, CVA, diabetes, GERD, hyperlipidemia, hypertension, osteoporosis, peripheral artery disease, seizures , TIA, other Psychiatric history: anxiety - Past Surgical History Surgical History: other (Bilateral tubal ligation) - Social History Smoking Status: Never smoker Smokeless Tobacco Status: No Alcohol use: none Drug use: none - Family History Father Living Status: Hx Family Cardiac Disorders: Yes Brother Living Status: Hx Family Cancer: Yes (stomach) Sister Living Status: Age at : 55 Hx Family Cardiac Disorders: Yes Mother Living Status: Hx Family Cardiac Disorders: Yes Hx Family Cancer: Yes (stomach) Internal Medicine - H&P: Meds Insulin ASPART [NovoLOG] 5 unit SQ TIDWM 07/30/15 [History] Montelukast [Singulair] 10 mg PO QPM 07/30/15 [History] Topiramate [Topamax] 50 mg PO DAILY 07/30/15 [History] TraZODone 50 mg PO HS PRN 07/30/15 [History] Zolpidem [Ambien] 5 mg PO HS PRN 07/30/15 [History] Aspirin 81 mg PO DAILY #90 tab.chew 11/21/15 [Rx] ARIPiprazole [Abilify] 2 mg PO DAILY 09/08/16 [History] Albuterol Sulfate [Albuterol Inhaler] 2 puff IH Q6H PRN 09/08/16 [History] Atorvastatin [Lipitor] 40 mg PO HS 09/08/16 [History] Clopidogrel [Plavix] 75 mg PO DAILY 09/08/16 [History] Colesevelam [Welchol] 1,875 mg PO BIDWM 09/08/16 [History] Docusate [Colace] 100 mg PO BID #60 capsule 09/08/16 [Rx] Esomeprazole Magnesium [Nexium] 40 mg PO BID 09/08/16 [History] Gabapentin [Neurontin] 600 mg PO BID 09/08/16 [History] Guaifenesin [Mucinex] 600 mg PO Q12H 09/08/16 [History] Insulin DETEMIR [Levemir Flextouch] 30 unit SQ HS 09/08/16 [History] Loratadine [Allergy Relief] 10 mg PO DAILY 09/08/16 [History] Metoclopramide [Reglan] 10 mg PO QIDAC 09/08/16 [History] Metoprolol [Lopressor] 25 mg PO BID 09/08/16 [History] Pioglitazone HCl [Actos] 45 mg PO DAILY 09/08/16 [History] Sodium Bicarbonate 650 mg PO BID 09/08/16 [History] Venlafaxine HCl [Venlafaxine HCl ER] 150 mg PO DAILY 09/08/16 [History] Acetaminophen [Tylenol] 500 mg PO Q6HR PRN 01/08/17 [History] Omeprazole [PriLOSEC] 40 mg PO DAILY 01/08/17 [History] Allergies Iodinated Contrast- Oral and IV Dye [Iodinated Contrast Media - IV Dye] Allergy (Verified 01/08/17 17:08) Anaphylaxis codeine Adverse Reaction (Verified 01/08/17 17:08) Gastrointestinal Upset All Systems PM: A 10-system review of systems was performed and is negative for pertinent findings except as documented above in the HPI. - Constitutional Vitals: Temp Pulse Resp BP Pulse Ox 98.4 F 67 15 149/52 96 01/08/17 21:46 01/08/17 21:46 01/08/17 21:46 01/08/17 21:46 01/08/17 21:46 General appearance: Present: A&O X 3, no acute distress, answers questions appropriately - Head Head exam: Present: atraumatic, normocephalic - Eye Eye exam: Present: PERRL, conjuntiva pink, sclera anicteric Pupils: Present: PERRL - Neck Neck exam general surgery: Present: supple, trachea midline. Absent: lymphadenopathy - Respiratory Respiratory exam: Present: CTAB. Absent: accessory muscle use, rales, rhonchi, wheezes - Cardiovascular Cardiovascular exam: Present: RRR, +S1, +S2. Absent: diastolic murmur, gallop, rubs, systolic murmur - GI/Abdominal GI/Abdominal exam: Present: normal bowel sounds, soft, tenderness (Mild tenderness without rebound or guarding), no peritoneal signs. Absent: distended - Extremities Exam Extremities exam: Present: warm, radial pulses palpable and symetrical. Absent : calf tenderness, cyanotic, pedal edema - Neurological Exam Neurological exam: Present: CN II-XII intact, oriented X3, no focal deficits. Absent: pronater drift, facial droop, speech deficit - Skin Skin exam: Present: dry, intact Internal Med - H&P Results - Labs CBC & Chem 7: 01/09/17 00:25 01/09/17 00:25 Labs: Short CBC 01/09/17 Range/Units 00:25 WBC 7.3 (4.3-11.1) K/mcL Hgb 10.2 L (11.5-15.4) g/dL Hct 30.9 L (35.3-44.9) % Plt Count 203 (140-400) K/mcL Neutrophils # 3.9 (1.6-8.9) K/mcL BMP 01/09/17 00:25 Sodium 135 L Potassium 4.2 Chloride 107 Carbon Dioxide 19 BUN 50 H Creatinine 2.45 H Glucose 111 H Calcium 9.4 Cardiac Enzymes 01/09/17 Range/Units 00:25 Troponin I 0.00 (0-0.03) ng/mL - EKG Data -: EKG Interpreted by Myself EKG shows normal: sinus rhythm, ST-T waves (Nonspecific ST-T change) Rate: normal - EKG Data Prior EKG available for review: no
[2017-01-09] MEDS: *HR* Heparin 5,000 UNIT/ML VIAL SQ SCH ×2 (06:16→17:12)
[2017-01-09] MEDS ORDERED: Venlafaxine XR (24 HR) 150 MG CAP.ER.24H PO SCH (09:00)
[2017-01-09] MEDS ORDERED: Topiramate 25 MG TABLET PO SCH (09:00)
[2017-01-09] MEDS ORDERED: Aspirin 81 MG TAB.CHEW PO SCH (09:00)
[2017-01-09] MEDS ORDERED: ARIPiprazole 2 MG TABLET PO SCH (09:00)
[2017-01-09 15:24] VITALS: BP 137/71
--- NOTE | 2017-01-09 17:53 | Discharge Summary ---
Date of Encounter: 01/09/17 Time of Encounter: 17:00 - Discharge Diagnosis (1) TIA (transient ischemic attack) Priority: Primary Status: Acute Qualifiers: Transient cerebral ischemia type: unspecified Qualified Code(s): G45.9 - Transient cerebral ischemic attack, unspecified (2) History of CVA (cerebrovascular accident) Priority: Secondary Status: Chronic Comments: Acute CVA ruled out. With residual left-sided hemiparesis. No new focal neurological weakness is present. OT and PT recommended home health which the patient already has. (3) Left leg weakness Priority: Secondary Status: Chronic (4) Left arm weakness Priority: Secondary Status: Chronic (5) Chest pain Priority: Primary Status: Resolved Comments: Patient denied chest pain while admitted. Chest x-ray negative. Echocardiogram unremarkable with ejection fraction of 60-65%. Troponin negative 3. Low suspicion for ACS. Qualifiers: Chest pain type: other chest pain Qualified Code(s): R07.89 - Other chest pain; R07.8 - Other chest pain (6) CKD (chronic kidney disease) stage 3, GFR 30-59 ml/min Priority: Secondary Status: Chronic Comments: Agent with chronic kidney disease stage 3/4. Currently at the low end of her normal and improved during this admission. Follow-up closely outpatient. (7) IDDM (insulin dependent diabetes mellitus) Priority: Secondary Status: Chronic Comments: Relatively well controlled with an A1c of 7.3%. Follow-up outpatient (8) Anemia Priority: Secondary Status: Chronic Comments: Mild, stable, chronic, currently at the high end of her normal, follow-up outpatient. No signs of active bleeding. Qualifiers: Anemia type: other cause Other causes of anemia: chronic disease, other Qualified Code(s): D63.8 - Anemia in other chronic diseases classified elsewhere (9) DVT prophylaxis Priority: Primary Status: Acute Comments: Subcutaneous have been while admitted (10) Seizure disorder Priority: Secondary Status: Chronic Comments: No seizure-like activity while admitted - Discharge Medications Prescriptions: Miscellaneous Medical Supply [Attachment Set] 1 each CONT #1 miscell Home Medications: Insulin ASPART [NovoLOG] 5 unit SQ TIDWM 07/30/15 [History] Montelukast [Singulair] 10 mg PO QPM 07/30/15 [History] Topiramate [Topamax] 50 mg PO DAILY 07/30/15 [History] TraZODone 50 mg PO HS PRN 07/30/15 [History] Zolpidem [Ambien] 5 mg PO HS PRN 07/30/15 [History] Aspirin 81 mg PO DAILY #90 tab.chew 11/21/15 [Rx] ARIPiprazole [Abilify] 2 mg PO DAILY 09/08/16 [History] Albuterol Sulfate [Albuterol Inhaler] 2 puff IH Q6H PRN 09/08/16 [History] Atorvastatin [Lipitor] 40 mg PO HS 09/08/16 [History] Clopidogrel [Plavix] 75 mg PO DAILY 09/08/16 [History] Colesevelam [Welchol] 1,875 mg PO BIDWM 09/08/16 [History] Docusate [Colace] 100 mg PO BID #60 capsule 09/08/16 [Rx] Esomeprazole Magnesium [Nexium] 40 mg PO BID 09/08/16 [History] Gabapentin [Neurontin] 600 mg PO BID 09/08/16 [History] Guaifenesin [Mucinex] 600 mg PO Q12H 09/08/16 [History] Insulin DETEMIR [Levemir Flextouch] 30 unit SQ HS 09/08/16 [History] Loratadine [Allergy Relief] 10 mg PO DAILY 09/08/16 [History] Metoclopramide [Reglan] 10 mg PO QIDAC 09/08/16 [History] Metoprolol [Lopressor] 25 mg PO BID 09/08/16 [History] Pioglitazone HCl [Actos] 45 mg PO DAILY 09/08/16 [History] Sodium Bicarbonate 650 mg PO BID 09/08/16 [History] Venlafaxine HCl [Venlafaxine HCl ER] 150 mg PO DAILY 09/08/16 [History] Acetaminophen [Tylenol] 500 mg PO Q6HR PRN 01/08/17 [History] Omeprazole [PriLOSEC] 40 mg PO DAILY 01/08/17 [History] Miscellaneous Medical Supply [Attachment Set] 1 each CONT #1 miscell [Rx] Allergies/Adverse Reactions: Allergies Iodinated Contrast- Oral and IV Dye [Iodinated Contrast Media - IV Dye] Allergy (Verified 01/08/17 17:08) Anaphylaxis codeine Adverse Reaction (Verified 01/08/17 17:08) Gastrointestinal Upset Procedures/tests Complete & Pending: Procedures Performed prior 72 hours Category Date Time Status ECG 12 lead ECG [ECG] Routine Y 01/08/17 17:08 Completed EV carotid duplex imaging BI Routine Y 01/09/17 22:56 Completed EV echocardiogram Routine Y 01/09/17 22:56 Completed Date of admission: 01/08/17 20:29 Primary care physician: Demarco Trevizo MD Consults: 01/08/17 22:57 Consult to Occupational Therapy [CONS] Routine Comment: Evaluate, develop and implement POC Reason for Consult: TIA, Hx of CVA Consult to Physical Therapy [CONS] Routine Comment: Evaluate, develop and implement POC Reason for Consult: Hx of CVA Consult to Speech Therapy [CONS] Routine Comment: Evaluate, develop and implement POC Reason for Consult: Hx of CVA Call Completed: No Discharging clinician: Courtney Cerna Anticipated date of discharge: 01/09/17 (home with continued HH svcs) - Patient Status Disposition: Home Health Service Condition: Fair Functional capacity at discharge: uses cane/walker Overall status at discharge: patient is back to baseline - Discharge Instructions Follow Up With: Demarco Trevizo MD [Primary Care Provider] - Additional Instructions: Follow-up with primary care provider within one to 2 weeks - Diet and Activity Activity: as per physical therapy, increase activity as tolerated Diet: diabetic diet, low fat, low cholesterol, low salt diet Hospital course: Ms. Rain is a 76 year old female with past medical history of asthma, atrial fibrillation not on antiplatelet regulation, prior CVA with left-sided hemiparesis, diabetes, GERD, hyperlipidemia, hypertension, PAD, seizures, TIA. Patient presented to the emergency department chief complaint of increased weakness on the left side as well as slurred speech. She department unremarkable. Chest x-ray negative for acute processes. Head CT negative. Brain MRI negative for acute infarct. Acute CVA ruled out. At this point, patient allegedly began to complain of chest pain so she was admitted to the hospitalist service for further evaluation and management. Troponins negative 3. Echocardiogram unremarkable with ejection fraction of 60-65%. Carotid ultrasound unremarkable. Patient had no new focal neurological weaknesses. She was seen and evaluated by occupational and physical therapy both of whom recommended home health services which the patient already has. She denied chest pain or shortness of breath on day of discharge. She was discharged home in stable condition with close outpatient followup recommended. ITS Impressions Chest X-Ray 01/08/17 17:42 IMPRESSION: 1. No acute cardiopulmonary disease. 2. Cardiomegaly. D/ / 01/08/2017 18:54:01 Mary Townsend MD / bcarter Interpreting Provider: Mary Townsend MD Head CT 01/08/17 17:45 IMPRESSION: No acute intracranial abnormality as discussed. D/ / Gregorio Stanley MD / Gregorio Stanley MD Interpreting Provider: Gregorio Stanley MD Brain MRI 01/08/17 19:51 IMPRESSION: 1. No acute intracranial abnormality. No acute infarct. 2. Mild global parenchymal volume loss with moderate chronic microvascular ischemic change. D/ / Raman Denny MD / Raman Denny MD Interpreting Provider: Raman Denny MD Echocardiogram impressions: Normal LV systolic function, LVEF 60-65%. Mild left ventricular diastolic dysfunction. Normal right ventricular size and function. Mildly dilated left atrium. No significant valvular dysfunction. Unable to estimate RVSP due to lack of TR jet. 01/09/17 10:10 - Vascular Preliminary by Margi Briceño Acct Num: [id number] : 1940 Patient Age: 76 Bilateral carotid duplex exam completed. Within normal limits bilaterally. - Time Spent with Patient Total time spent providing and/or coordinating discharge services: - Constitutional Vitals: Temp Pulse Resp BP Pulse Ox 98.3 F 63 16 137/71 97 01/09/17 15:23 01/09/17 15:23 01/09/17 15:23 01/09/17 15:23 01/09/17 15:23 General appearance: Present: A&O X 3, pleasant, no acute distress, answers questions appropriately - Head Head exam: Present: atraumatic, normocephalic - Eye Eye exam: Present: PERRL, conjuntiva pink, sclera anicteric Pupils: Present: PERRL - Neck Neck exam general surgery: Present: supple, trachea midline. Absent: lymphadenopathy - Respiratory Respiratory exam: Present: CTAB. Absent: accessory muscle use, rales, respiratory distress, rhonchi, wheezes - Cardiovascular Cardiovascular exam: Present: RRR, +S1, +S2. Absent: diastolic murmur, gallop, rubs, systolic murmur - GI/Abdominal GI/Abdominal exam: Present: normal bowel sounds, soft, no peritoneal signs. Absent: distended, tenderness - Extremities Exam Extremities exam: Present: warm, radial pulses palpable and symetrical. Absent : calf tenderness, cyanotic, pedal edema - Neurological Exam Neurological exam: Present: alert, CN II-XII intact, oriented X3, no focal deficits, speech deficit (edentuluous but speech intelligible). Absent: normal gait, strengths equal and symetr throughout, pronater drift, facial droop - Skin Skin exam: Present: dry, intact, normal color, warm
--- NOTE | 2017-01-09 18:55 | Electrocardiograph Report ---
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
--- NOTE | 2017-01-10 16:00 | Carotid Imaging Report ---
Carotid Duplex Patient Name:Mamta Rain Order Number:[id number] Procedure Date:01/09/2017 Date:1940ge:76 yrs Gender:Female Lt BP:130 / 77 mmHg Rt.BP:130 / 77 mmHgHeart Rate: Location:[facility] Room #: 3B32 Puppy Trainer:Margi Briceño Referring MD:Adrienne Senior MD emergency response officer:Demarco Trevizo MD Reading MD:Alban Newman MD Primary Indications:TIA Risk Factors Yes/No Hypertension Hypercholesterolemia Diabetes Hx of TIA Impressions: Findings: Bilateral carotid system is essentially normal. Carotid Results Right PSV EDV Assessment Proximal CCA 126 16 Normal Mid CCA 97 16 Normal Distal CCA 107 24 Normal Bifurcation 75 20 Normal Proximal ICA 63 14 Normal Mid ICA 94 28 Normal Distal ICA 100 30 Normal ECA 55 9 Normal Vertebral Artery 55 9 Antegrade Flow Left PSV EDV Assessment Proximal CCA 123 21 Normal Mid CCA 81 20 Normal Distal CCA 77 15 Normal Bifurcation 66 16 Normal Proximal ICA 80 12 Normal Mid ICA 91 22 Normal Distal ICA 108 27 Normal ECA 66 11 Normal Vertebral Artery 72 18 Antegrade Flow Ratio's Right ICA/CCA Ratio: 1.03 ICA/CCA Values: 100/97 Left ICA/CCA Ratio: 1.33 ICA/CCA Values: 108/81 Updated by Alban Newman MD on 01/10/2017 3:53:53 PM electronically signed on 01/10/2017 3:54:08 PM with status of Final
== END 2017-01-09 18:30 | disposition home health service (06) ==
LOC: 3BNU 17:00 → EMEROO 17:00 → 3BNU 21:14
PROVIDERS: ADMIT Nurse Practitioner Family; ATTEND Nurse Practitioner Family

== ENCOUNTER 2018-01-19 08:19 | Inpatient (IN) ==
[2018-01-19] MEDS ORDERED: Aspirin 81 MG TAB.CHEW PO ONE (08:30)
--- NOTE | 2018-01-19 08:43 | Emergency Department Note ---
Disposition Clinical Impression: Chest pain, rule out acute myocardial infarction Fall with injury Qualifiers: Encounter type: initial encounter Qualified Code(s): W19.XXXA - Unspecified fall, initial encounter Disposition: Admitted As Inpatient Condition: Fair Referrals: Demarco Trevizo MD [Primary Care Provider] - Forms: ED Satisfaction Letter Time of Disposition: 11:35 Fall HPI - General Chief Complaint: ED Fall Stated Complaint: Fall Time Seen by Provider: 01/19/18 08:24 Source: patient, EMS Mode of arrival: ambulatory Limitations: no limitations Nursing Notes Reviewed: Yes Vital Signs Reviewed: Yes - History of Present Illness HPI Narrative: 77-year-old female is brought by EMS from her residence for evaluation status post fall injury. The patient states that at approximately 3:00 AM, she had gotten out of bed to go to the restroom. She states that she felt "dizzy" and "I think I passed out". She states she struck the back of her head on a nightstand beside the bed. She complains of a headache, neck pain, thoracic and lumbar back pain, right-sided chest wall/flank pain, and left hip pain. She does state that she had been experiencing some left-sided chest pain and pressure throughout the night. She stated that the pain did radiate into the left upper extremity. She states "I thought I could sleep it off". She does complain of some associated nausea but denies any vomiting. She denies any visual disturbances or abdominal pain. She denies any numbness/tingling/ weakness of the extremities. Pt Subjective Complaint: fall Onset (ago): hour(s) (0300 am) Fall From: standing Fall Witnessed: no Place Fall Occurred: home Loss of Consciousness: unsure Prolonged Down Time?: unclear Symptoms Prior to Fall: dizziness Location of injury: head, neck, chest, back Location of injury - extremities: Left: hip Severity: moderate Severity scale (1-10): 7 Quality: dull, aching Associated symptoms (after fall): Reports: headache, neck pain, chest pain. Denies: numbness, weakness, shortness of breath, abdominal pain - Related Data Home Medications Medication Instructions Recorded Confirmed Insulin ASPART [NovoLOG] 5 unit SQ TIDWM 07/30/15 01/19/18 Montelukast [Singulair] 10 mg PO QPM 07/30/15 01/19/18 TraZODone 50 mg PO HS PRN 07/30/15 01/19/18 Zolpidem [Ambien] 5 mg PO HS PRN 07/30/15 01/19/18 ARIPiprazole [Abilify] 2 mg PO DAILY 09/08/16 01/19/18 Albuterol Sulfate [Albuterol 2 puff IH Q6H PRN 09/08/16 01/19/18 Inhaler] Atorvastatin [Lipitor] 40 mg PO HS 09/08/16 01/19/18 Clopidogrel [Plavix] 75 mg PO DAILY 09/08/16 01/19/18 Gabapentin [Neurontin] 600 mg PO BID 09/08/16 01/19/18 Guaifenesin [Mucinex] 600 mg PO Q12H 09/08/16 01/19/18 Insulin DETEMIR [Levemir Flextouch] 30 unit SQ HS 09/08/16 01/19/18 Loratadine [Allergy Relief] 10 mg PO DAILY 09/08/16 01/19/18 Metoclopramide [Reglan] 10 mg PO QIDAC 09/08/16 01/19/18 Metoprolol [Lopressor] 50 mg PO BID 09/08/16 01/19/18 Sodium Bicarbonate 650 mg PO BID 09/08/16 01/19/18 Venlafaxine HCl [Venlafaxine HCl 150 mg PO DAILY 09/08/16 01/19/18 ER] Acetaminophen [Tylenol] 500 mg PO Q6HR PRN 01/08/17 01/19/18 Omeprazole [PriLOSEC] 40 mg PO DAILY 01/08/17 01/19/18 Colesevelam HCl [Welchol] 625 mg PO TIDWM 11/16/17 01/19/18 Isosorbide MONOnitrate (24 HR) 30 mg PO DAILY 11/16/17 01/19/18 [Imdur] Ondansetron HCl [Zofran] 4 mg SL Q8H PRN 11/16/17 01/19/18 amLODIPine [Norvasc] 5 mg PO DAILY 11/16/17 01/19/18 Furosemide [Lasix] 20 mg PO BID 01/19/18 01/19/18 Pioglitazone HCl [Actos] 45 mg PO DAILY 01/19/18 01/19/18 Topiramate [Topamax] 50 mg PO DAILY 01/19/18 01/19/18 Previous Rx's Medication Instructions Recorded Aspirin 81 mg PO DAILY #90 tab.chew 11/21/15 Docusate [Colace] 100 mg PO BID #60 capsule 09/08/16 HYDROcodone/Acet 5/325 mg [[place] 0.5 tab PO Q6H PRN #10 tab 02/05/17 5-325 mg] Allergies Allergy/AdvReac Type Severity Reaction Status Date / Time Iodinated Contrast- Oral and Allergy Anaphylaxis Verified 02/05/17 08:30 IV Dye [Iodinated Contrast Media - IV Dye] latex Allergy Rash Verified 11/16/17 07:42 codeine AdvReac Gastrointestinal Verified 02/05/17 08:30 Upset All systems ED: reviewed and negative except as stated. Constitutional: Denies: fever, chills, weakness, weight change Eyes: Denies: eye pain, eye discharge, vision change ENT ED: Denies: ear pain, throat pain, dental pain, hearing loss, epistaxis, congestion, dysphagia Cardiovascular: Reports: as per HPI, chest pain, syncope. Denies: palpitations , dyspnea on exertion, edema Respiratory: Denies: cough, dyspnea, wheezes, hemoptysis, stridor Gastrointestinal: Reports: as per HPI, nausea. Denies: abdominal pain, vomiting , diarrhea, constipation, hematemesis, melena, hematochezia Genitourinary: Denies: dysuria, frequency, hematuria, discharge Musculoskeletal: Reports: as per HPI, back pain, neck pain, arthralgia (Left hip pain). Denies: myalgia Integumentary: Denies: rash, abrasion, lesions Neurological: Reports: as per HPI, headache. Denies: weakness, numbness, paresthesias, confusion, abnormal gait, vertigo Psychiatric: Denies: anxiety, depression, suicidal thoughts, homicidal thoughts , auditory hallucinations, visual hallucinations Endocrine: Denies: fatigue Hematological/Lymphatic: Denies: easy bleeding, easy bruising Allergic/Immunologic: Denies: facial swelling, urticaria Fall PMH - Past Medical History Medical history: Reports: arthritis, asthma, atrial fibrillation, CVA, diabetes , GERD, hyperlipidemia, hypertension, osteoporosis, peripheral artery disease, seizures, TIA, other Surgical history: Reports: other Psychiatric history: Reports: anxiety, depression [employer] history: Reports: bilateral tubal ligation - Social History Smoking Status: Never smoker Alcohol use: Reports: none Drug use: Reports: none Physical Exam - General Limitations: no limitations General appearance: alert - Head Head exam: atraumatic, normocephalic, normal inspection - Expanded Head Exam Head exam physicial: Absent: laceration, abrasion, contusion, hematoma, raccoon eyes, Bates's sign - Eye Eye exam: Present: normal appearance, PERRL, EOMI. Absent: nystagmus - ENT ENT exam: mucous membranes moist - Neck Neck exam: Present: full ROM, trachea midline, tenderness (Midline tenderness, cervical spine) - Chest Chest inspection: Present: symmetric chest wall rise, tenderness, other ( Significant ecchymosis noted to the right posterior thorax) - Respiratory Respiratory exam: Present: normal lung sounds bilaterally. Absent: respiratory distress, wheezes, stridor, accessory muscle use, prolonged expiratory phase - Cardiovascular Cardiovascular exam: Present: regular rate, normal rhythm, normal heart sounds - Abdominal Exam Abdominal exam: Present: soft, Non-Tender, normal bowel sounds. Absent: tenderness, distention, guarding, rebound, rigidity - Extremities Exam Extremities exam: Present: full ROM. Absent: tenderness, pedal edema - Expanded Lower Extremity Exam Hip/Pelvis exam: Present: tenderness (Left hip), pelvis stable. Absent: dislocation, external rotation, internal rotation, shortening - Neurological Exam Neurological exam: Present: alert, oriented X3 - Psychiatric Psychiatric exam: Present: normal affect, normal mood - Skin Skin exam: Present: warm, dry, intact, normal color. Absent: rash Course Course Narrative: 1134: I spoke with Dr. Medrano, hospitalist on-call. He has agreed to accept the patient for further evaluation of her ongoing chest pain. I discussed this plan with Dr. Bills, ED attending. Dr. Mays has had a face-to- face evaluation with the patient and agrees with this plan. Vital Signs Temperature 98 F 01/19/18 08:21 Pulse Rate 55 01/19/18 08:21 Respiratory Rate 18 01/19/18 08:21 Blood Pressure 175/74 01/19/18 08:21 O2 Sat by Pulse Oximetry 97 01/19/18 08:21 Temperature 98 F 01/19/18 08:21 Pulse Rate 53 06/12/18 11:08 Respiratory Rate 22 01/19/18 11:08 Blood Pressure 109/57 01/19/18 11:08 O2 Sat by Pulse Oximetry 96 01/19/18 11:08 Oxygen Delivery Oxygen Delivery Room Air Fall - Medical Records Medical records reviewed: Yes I reviewed the patient's medical records. - Lab Data Lab results reviewed: Yes I reviewed the patient's lab results. Lab results narrative: Laboratory Last Values WBC 6.7 K/mcL (4.3-11.1) 01/19/18 09:11 RBC 3.36 M/mcL (3.82-4.97) L 01/19/18 09:11 Hgb 10.2 g/dL (11.5-15.4) L 01/19/18 09:11 Hct 31.8 % (35.3-44.9) L 01/19/18 09:11 MCV 94.6 fL (83.0-100.0) 01/19/18 09:11 MCH 30.4 pg (28.0-33.3) 01/19/18 09:11 MCHC 32.1 g/dL (31.6-35.5) 01/19/18 09:11 RDW 14.4 % (11.5-14.5) 01/19/18 09:11 Plt Count 172 K/mcL (140-400) 01/19/18 09:11 MPV 9.5 fL (9.4-12.4) 01/19/18 09:11 Immature Gran % 0.3 % (0-4) 01/19/18 09:11 Seg Neutrophils % 63.6 % 01/19/18 09:11 Lymphocytes % 23.1 % 01/19/18 09:11 Monocytes % 6.3 % 01/19/18 09:11 Eosinophils % 6.3 % 01/19/18 09:11 Basophils % 0.4 % 01/19/18 09:11 Neutrophils # 4.3 K/mcL (1.6-8.9) 01/19/18 09:11 Lymphocytes # 1.6 K/mcL (0.6-4.6) 01/19/18 09:11 Monocytes # 0.4 K/mcL (0.0-1.3) 01/19/18 09:11 Eosinophils # 0.4 K/mcL (0.0-0.6) 01/19/18 09:11 Basophils # 0.0 K/mcL (0.0-0.2) 01/19/18 09:11 PT 11.3 Seconds (9.4-12.1) 01/19/18 09:11 INR 1.1 01/19/18 09:11 APTT 31.8 Seconds (26.0-36.0) 01/19/18 09:11 Sodium 136 mEq/L (136-145) 01/19/18 09:11 Potassium 5.1 mEq/L (3.5-5.1) 01/19/18 09:11 Chloride 109 mEq/L (98-107) H 01/19/18 09:11 Carbon Dioxide 19 mEq/L (23-29) L 01/19/18 09:11 BUN 40 mg/dL (8-23) H 01/19/18 09:11 Creatinine 2.01 mg/dL (0.60-1.20) H 01/19/18 09:11 Est GFR ( Amer) 29 (> 60) L 01/19/18 09:11 Est GFR (Non-Af Amer) 24 (> 60) L 01/19/18 09:11 BUN/Creatinine Ratio 20 (6-26) 01/19/18 09:11 Glucose 105 mg/dL (70-105) 01/19/18 09:11 Calculated Osmolality 292 (280-300) 01/19/18 09:11 Calcium 9.2 mg/dL (8.6-10.3) 01/19/18 09:11 Troponin I < 0.03 ng/mL (< 0.04) 01/19/18 09:11 Urine Color Yellow (Yellow) 01/19/18 09:05 Urine Clarity Cloudy (Clear) A 01/19/18 09: Urine pH 5.5 pH Units (5.0-8.0) 01/19/18 09: Ur Specific [place]ony 1.017 (1.010-1.025) 01/19/18 09:05 Urine Protein 100 mg/dL (Neg-Trace) H 01/19/18 09:05 Urine Glucose (UA) Normal mg/dL (Normal) 01/19/18 09: Urine Ketones Negative mg/dL (Negative) 01/19/18 09:05 Urine Blood Small (Negative) H 01/19/18 09:05 Urine Nitrite Negative (Negative) 01/19/18 09:05 Urine Bilirubin Negative (Negative) 01/19/18 09:05 Urine Urobilinogen Normal mg/dL (Normal) 01/19/18 09:05 Ur Leukocyte Esterase Negative (Negative) 01/19/18 09:05 Urine Microscopic RBC 3-5 per hpf (0-3) H 01/19/18 09:05 Urine Microscopic WBC 0-3 per hpf (0-3) 01/19/18 09:05 Ur Squamous Epith Cells Many per lpf (None-Few) H 01/19/18 09:05 Urine Bacteria None Seen per hpf (None-Few) 01/19/18 09:05 Hyaline Casts None Seen per lpf (None-Few) 01/19/18 09:05 Ur Culture Indicated? NO (NO) 01/19/18 09:05 Result diagrams: 01/19/18 09:11 01/19/18 09:11 Lab Results 01/19/18 01/19/18 01/19/18 Range/Units 09:05 09:11 09:11 WBC 6.7 (4.3-11.1) K/mcL RBC 3.36 L (3.82-4.97) M/mcL Hgb 10.2 L (11.5-15.4) g/dL Hct 31.8 L (35.3-44.9) % MCV 94.6 (83.0-100.0) fL MCH 30.4 (28.0-33.3) pg MCHC 32.1 (31.6-35.5) g/dL RDW 14.4 (11.5-14.5) % Plt Count 172 (140-400) K/mcL MPV 9.5 (9.4-12.4) fL Immature Gran % 0.3 (0-4) % Seg Neutrophils % 63.6 % Lymphocytes % 23.1 % Monocytes % 6.3 % Eosinophils % 6.3 % Basophils % 0.4 % Neutrophils # 4.3 (1.6-8.9) K/mcL Lymphocytes # 1.6 (0.6-4.6) K/mcL Monocytes # 0.4 (0.0-1.3) K/mcL Eosinophils # 0.4 (0.0-0.6) K/mcL Basophils # 0.0 (0.0-0.2) K/mcL PT 11.3 (9.4-12.1) Seconds INR 1.1 APTT 31.8 (26.0-36.0) Seconds Sodium (136-145) mEq/L Potassium (3.5-5.1) mEq/L Chloride (98-107) mEq/L Carbon Dioxide (23-29) mEq/L BUN (8-23) mg/dL Creatinine (0.60-1.20) mg/dL Est GFR ( Amer) (> 60) Est GFR (Non-Af Amer) (> 60) BUN/Creatinine Ratio (6-26) Glucose (70-105) mg/dL Calculated Osmolality (280-300) Calcium (8.6-10.3) mg/dL Troponin I (< 0.04) ng/mL Urine Color Yellow (Yellow) Urine Clarity Cloudy A (Clear) Urine pH 5.5 (5.0-8.0) pH Units Ur Specific [place] 1.017 (1.010-1.025) Urine Protein 100 H (Neg-Trace) mg/dL Urine Glucose (UA) Normal (Normal) mg/dL Urine Ketones Negative (Negative) mg/dL Urine Blood Small H (Negative) Urine Nitrite Negative (Negative) Urine Bilirubin Negative (Negative) Urine Urobilinogen Normal (Normal) mg/dL Ur Leukocyte Esterase Negative (Negative) Urine Microscopic RBC 3-5 H (0-3) per hpf Urine Microscopic WBC 0-3 (0-3) per hpf Ur Squamous Epith Cells Many H (None-Few) per lpf Urine Bacteria None Seen (None-Few) per hpf Hyaline Casts None Seen (None-Few) per lpf Ur Culture Indicated? NO (NO) 01/19/18 Range/Units 09:11 WBC (4.3-11.1) K/mcL RBC (3.82-4.97) M/mcL Hgb (11.5-15.4) g/dL Hct (35.3-44.9) % MCV (83.0-100.0) fL MCH (28.0-33.3) pg MCHC (31.6-35.5) g/dL RDW (11.5-14.5) % Plt Count (140-400) K/mcL MPV (9.4-12.4) fL Immature Gran % (0-4) % Seg Neutrophils % % Lymphocytes % % Monocytes % % Eosinophils % % Basophils % % Neutrophils # (1.6-8.9) K/mcL Lymphocytes # (0.6-4.6) K/mcL Monocytes # (0.0-1.3) K/mcL Eosinophils # (0.0-0.6) K/mcL Basophils # (0.0-0.2) K/mcL PT (9.4-12.1) Seconds INR APTT (26.0-36.0) Seconds Sodium 136 (136-145) mEq/L Potassium 5.1 (3.5-5.1) mEq/L Chloride 109 H (98-107) mEq/L Carbon Dioxide 19 L (23-29) mEq/L BUN 40 H (8-23) mg/dL Creatinine 2.01 H (0.60-1.20) mg/dL Est GFR ( Amer) 29 L (> 60) Est GFR (Non-Af Amer) 24 L (> 60) BUN/Creatinine Ratio 20 (6-26) Glucose 105 (70-105) mg/dL Calculated Osmolality 292 (280-300) Calcium 9.2 (8.6-10.3) mg/dL Troponin I < 0.03 (< 0.04) ng/mL Urine Color (Yellow) Urine Clarity (Clear) Urine pH (5.0-8.0) pH Units Ur Specific [place] (1.010-1.025) Urine Protein (Neg-Trace) mg/dL Urine Glucose (UA) (Normal) mg/dL Urine Ketones (Negative) mg/dL Urine Blood (Negative) Urine Nitrite (Negative) Urine Bilirubin (Negative) Urine Urobilinogen (Normal) mg/dL Ur Leukocyte Esterase (Negative) Urine Microscopic RBC (0-3) per hpf Urine Microscopic WBC (0-3) per hpf Ur Squamous Epith Cells (None-Few) per lpf Urine Bacteria (None-Few) per hpf Hyaline Casts (None-Few) per lpf Ur Culture Indicated? (NO) - Radiology Data Radiology results reviewed: Yes I reviewed the patient's radiology results. Cervical Spine CT 01/19/18 08:30 IMPRESSION: No acute abnormality of the cervical spine. D/ / 01/19/2018 10:23:45 Anaid Marie MD / marcus Interpreting Provider: Anaid Marie MD Chest CT 01/19/18 08:30 IMPRESSION: No acute intrathoracic abnormality. D/ / 01/19/2018 10:29:50 Uriah Carrion MD / marcus Interpreting Provider: Uriah Carrion MD Head CT 01/19/18 08:30 IMPRESSION: 1. No acute intracranial abnormality. 2. Chronic small vessel ischemic disease. D/ / Gilbert Jacobson MD / Gilbert Jacobson MD Interpreting Provider: Gilbert Jacobson MD Lumbar Spine CT 01/19/18 08:30 IMPRESSION: 1. No evidence of acute traumatic injury of the thoracic or lumbar spine. D/ / Gilbert Jacobson MD / Gilbert Jacobson MD Interpreting Provider: Gilbert Jacobson MD Pelvis X-Ray 01/19/18 08:30 IMPRESSION: 1. No acute osseous abnormality of the pelvis. 2. Moderate bilateral hip osteoarthritis. D/ / 01/19/2018 10:11:32 Mary Townsend MD / marcus Interpreting Provider: Mary Townsend MD Thoracic Spine CT 01/19/18 08:30 IMPRESSION: 1. No evidence of acute traumatic injury of the thoracic or lumbar spine. D/ / Gilbert Jacobson MD / Gilbert Jacobson MD Interpreting Provider: Gilbert Jacobson MD - EKG Data EKG attestation: Yes I reviewed and interpreted this EKG. EKG results narrative: EKG reviewed by Dr. Frederick Jacobson as well. EKG shows a sinus bradycardia at a rate of 56 bpm. TX interval 191, QRS duration 77, QT/QTc interval 409/400. No significant changes when compared to an EKG dated from 06/02/17.
[2018-01-19 09:16] LABS: Bilirubin,Urine Negative (Negative); Blood,Urine Small (Negative); Clarity,Urine Cloudy (Clear); Color,Urine Yellow (Yellow); Glucose,Urine (UA) Normal (Normal); Ketones,Urine Negative (Negative); Leukocyte Esterase,Urine Negative (Negative); Nitrite,Urine Negative (Negative); PH,Urine 5.5 pH Units (5.0-8.0); Protein,Urine 100 mg/dL (Neg-Trace); Specific Gravity,Urine 1.017 (1.010-1.025); Urobilinogen,Urine Normal (Normal)
[2018-01-19 09:19] LABS: Bacteria,Urine None Seen per hpf (None-Few); Hyaline Casts,Urine None Seen per lpf (None-Few); Squamous Epithelial Cell,Urine Many per lpf (None-Few); WBC,Urine 0-3 per hpf (0-3)
[2018-01-19 09:25] LABS: Basophils % 0.4 %; Eosinophils # 0.4 K/mcL (0.0-0.6); Eosinophils % 6.3 %; Hematocrit 31.8 % (35.3-44.9); Hemoglobin 10.2 g/dL (11.5-15.4); Immature Granulocytes % 0.3 % (0-4); Lymphocytes # 1.6 K/mcL (0.6-4.6); Lymphocytes % 23.1 %; Mean Corpuscular HGB Conc 32.1 g/dL (31.6-35.5); Mean Corpuscular Hemoglobin 30.4 pg (28.0-33.3); Mean Corpuscular Volume 94.6 fL (83.0-100.0); Mean Platelet Volume 9.5 fL (9.4-12.4); Monocytes # 0.4 K/mcL (0.0-1.3); Monocytes % 6.3 %; Neutrophils # 4.3 K/mcL (1.6-8.9); Platelet Count 172 K/mcL (140-400); Red Blood Count 3.36 M/mcL (3.82-4.97); Red Cell Distribution Width 14.4 % (11.5-14.5); Segmented Neutrophils % 63.6 %
[2018-01-19 09:32] LABS: INR 1.1; Prothrombin Time 11.3 Seconds (9.4-12.1)
[2018-01-19 09:35] LABS: Activated Partial Thrombo Time 31.8 Seconds (26.0-36.0)
--- NOTE | 2018-01-19 09:48 | Emergency Department Note ---
Disposition Clinical Impression: Chest pain, rule out acute myocardial infarction Fall with injury Qualifiers: Encounter type: initial encounter Qualified Code(s): W19.XXXA - Unspecified fall, initial encounter Disposition: Admitted As Inpatient Condition: Fair General Adult HPI - General Chief complaint: ED Fall Stated complaint: Fall Time Seen by Provider: 01/19/18 08:24 Source: patient, EMS Mode of arrival: ambulatory Limitations: no limitations - History of Present Illness Pain Scale: 7 - Related Data Home Medications Medication Instructions Recorded Confirmed Insulin ASPART [NovoLOG] 5 unit SQ TIDWM 07/30/15 01/19/18 Montelukast [Singulair] 10 mg PO QPM 07/30/15 01/19/18 TraZODone 50 mg PO HS PRN 07/30/15 01/19/18 Zolpidem [Ambien] 5 mg PO HS PRN 07/30/15 01/19/18 ARIPiprazole [Abilify] 2 mg PO DAILY 09/08/16 01/19/18 Albuterol Sulfate [Albuterol 2 puff IH Q6H PRN 09/08/16 01/19/18 Inhaler] Atorvastatin [Lipitor] 40 mg PO HS 09/08/16 01/19/18 Clopidogrel [Plavix] 75 mg PO DAILY 09/08/16 01/19/18 Gabapentin [Neurontin] 600 mg PO BID 09/08/16 01/19/18 Guaifenesin [Mucinex] 600 mg PO Q12H 09/08/16 01/19/18 Insulin DETEMIR [Levemir Flextouch] 30 unit SQ HS 09/08/16 01/19/18 Loratadine [Allergy Relief] 10 mg PO DAILY 09/08/16 01/19/18 Metoclopramide [Reglan] 10 mg PO QIDAC 09/08/16 01/19/18 Metoprolol [Lopressor] 50 mg PO BID 09/08/16 01/19/18 Sodium Bicarbonate 650 mg PO BID 09/08/16 01/19/18 Venlafaxine HCl [Venlafaxine HCl 150 mg PO DAILY 09/08/16 01/19/18 ER] Acetaminophen [Tylenol] 500 mg PO Q6HR PRN 01/08/17 01/19/18 Omeprazole [PriLOSEC] 40 mg PO DAILY 01/08/17 01/19/18 Colesevelam HCl [Welchol] 625 mg PO TIDWM 11/16/17 01/19/18 Isosorbide MONOnitrate (24 HR) 30 mg PO DAILY 11/16/17 01/19/18 [Imdur] Ondansetron HCl [Zofran] 4 mg SL Q8H PRN 11/16/17 01/19/18 amLODIPine [Norvasc] 5 mg PO DAILY 11/16/17 01/19/18 Furosemide [Lasix] 20 mg PO BID 01/19/18 01/19/18 Pioglitazone HCl [Actos] 45 mg PO DAILY 01/19/18 01/19/18 Topiramate [Topamax] 50 mg PO DAILY 01/19/18 01/19/18 Previous Rx's Medication Instructions Recorded Aspirin 81 mg PO DAILY #90 tab.chew 11/21/15 Docusate [Colace] 100 mg PO BID #60 capsule 09/08/16 HYDROcodone/Acet 5/325 mg [[place] 0.5 tab PO Q6H PRN #10 tab 02/05/17 5-325 mg] Allergies Allergy/AdvReac Type Severity Reaction Status Date / Time Iodinated Contrast- Oral and Allergy Anaphylaxis Verified 02/05/17 08:30 IV Dye [Iodinated Contrast Media - IV Dye] latex Allergy Rash Verified 11/16/17 07:42 codeine AdvReac Gastrointestinal Verified 02/05/17 08:30 Upset Constitutional: Denies: fever, chills, weakness, weight change Eyes: Denies: eye pain, eye discharge, vision change ENT ED: Denies: ear pain, throat pain, dental pain, hearing loss, epistaxis, congestion, dysphagia Cardiovascular: Reports: as per HPI, chest pain, syncope. Denies: palpitations , dyspnea on exertion, edema Respiratory: Denies: cough, dyspnea, wheezes, hemoptysis, stridor Gastrointestinal: Reports: as per HPI, nausea. Denies: abdominal pain, vomiting , diarrhea, constipation, hematemesis, melena, hematochezia Genitourinary: Denies: dysuria, frequency, hematuria, discharge Musculoskeletal: Reports: as per HPI, back pain, neck pain, arthralgia (Left hip pain). Denies: myalgia Integumentary: Denies: rash, abrasion, lesions Neurological: Reports: as per HPI, headache. Denies: weakness, numbness, paresthesias, confusion, abnormal gait, vertigo Psychiatric: Denies: anxiety, depression, suicidal thoughts, homicidal thoughts , auditory hallucinations, visual hallucinations Endocrine: Denies: fatigue Hematological/Lymphatic: Denies: easy bleeding, easy bruising Allergic/Immunologic: Denies: facial swelling, urticaria Past Medical History - Past Medical History Medical history: Reports: arthritis, asthma, atrial fibrillation, CVA, diabetes , GERD, hyperlipidemia, hypertension, osteoporosis, peripheral artery disease, seizures, TIA, other Surgical history: Reports: other Psychiatric history: Reports: anxiety, depression 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 - Social History Smoking Status: Never smoker Smokeless Tobacco Status: No Alcohol use: Reports: none Drug use: Reports: none Physical Exam - General Limitations: no limitations General appearance: alert Course Vital Signs Temperature 98 F 01/19/18 08:21 Pulse Rate 55 01/19/18 08:21 Respiratory Rate 18 01/19/18 08:21 Blood Pressure 175/74 01/19/18 08:21 O2 Sat by Pulse Oximetry 97 01/19/18 08:21 Temperature 98.1 F 01/19/18 19:38 Pulse Rate 65 01/19/18 19:38 Respiratory Rate 21 01/19/18 19:38 Blood Pressure 162/72 01/19/18 19:38 O2 Sat by Pulse Oximetry 97 01/19/18 19:38 Oxygen Delivery Oxygen Delivery Room Air Medical Decision Making - Lab Data Result diagrams: 01/19/18 09:11 01/19/18 09:11 Lab Results 01/19/18 01/19/18 01/19/18 Range/Units 09:05 09:11 09:11 WBC 6.7 (4.3-11.1) K/mcL RBC 3.36 L (3.82-4.97) M/mcL Hgb 10.2 L (11.5-15.4) g/dL Hct 31.8 L (35.3-44.9) % MCV 94.6 (83.0-100.0) fL MCH 30.4 (28.0-33.3) pg MCHC 32.1 (31.6-35.5) g/dL RDW 14.4 (11.5-14.5) % Plt Count 172 (140-400) K/mcL MPV 9.5 (9.4-12.4) fL Immature Gran % 0.3 (0-4) % Seg Neutrophils % 63.6 % Lymphocytes % 23.1 % Monocytes % 6.3 % Eosinophils % 6.3 % Basophils % 0.4 % Neutrophils # 4.3 (1.6-8.9) K/mcL Lymphocytes # 1.6 (0.6-4.6) K/mcL Monocytes # 0.4 (0.0-1.3) K/mcL Eosinophils # 0.4 (0.0-0.6) K/mcL Basophils # 0.0 (0.0-0.2) K/mcL PT 11.3 (9.4-12.1) Seconds INR 1.1 APTT 31.8 (26.0-36.0) Seconds Sodium (136-145) mEq/L Potassium (3.5-5.1) mEq/L Chloride (98-107) mEq/L Carbon Dioxide (23-29) mEq/L BUN (8-23) mg/dL Creatinine (0.60-1.20) mg/dL Est GFR ( Amer) (> 60) Est GFR (Non-Af Amer) (> 60) BUN/Creatinine Ratio (6-26) Glucose (70-105) mg/dL Calculated Osmolality (280-300) Calcium (8.6-10.3) mg/dL Troponin I (< 0.04) ng/mL Urine Color Yellow (Yellow) Urine Clarity Cloudy A (Clear) Urine pH 5.5 (5.0-8.0) pH Units Ur Specific [place] 1.017 (1.010-1.025) Urine Protein 100 H (Neg-Trace) mg/dL Urine Glucose (UA) Normal (Normal) mg/dL Urine Ketones Negative (Negative) mg/dL Urine Blood Small H (Negative) Urine Nitrite Negative (Negative) Urine Bilirubin Negative (Negative) Urine Urobilinogen Normal (Normal) mg/dL Ur Leukocyte Esterase Negative (Negative) Urine Microscopic RBC 3-5 H (0-3) per hpf Urine Microscopic WBC 0-3 (0-3) per hpf Ur Squamous Epith Cells Many H (None-Few) per lpf Urine Bacteria None Seen (None-Few) per hpf Hyaline Casts None Seen (None-Few) per lpf Ur Culture Indicated? NO (NO) 01/19/18 Range/Units 09:11 WBC (4.3-11.1) K/mcL RBC (3.82-4.97) M/mcL Hgb (11.5-15.4) g/dL Hct (35.3-44.9) % MCV (83.0-100.0) fL MCH (28.0-33.3) pg MCHC (31.6-35.5) g/dL RDW (11.5-14.5) % Plt Count (140-400) K/mcL MPV (9.4-12.4) fL Immature Gran % (0-4) % Seg Neutrophils % % Lymphocytes % % Monocytes % % Eosinophils % % Basophils % % Neutrophils # (1.6-8.9) K/mcL Lymphocytes # (0.6-4.6) K/mcL Monocytes # (0.0-1.3) K/mcL Eosinophils # (0.0-0.6) K/mcL Basophils # (0.0-0.2) K/mcL PT (9.4-12.1) Seconds INR APTT (26.0-36.0) Seconds Sodium 136 (136-145) mEq/L Potassium 5.1 (3.5-5.1) mEq/L Chloride 109 H (98-107) mEq/L Carbon Dioxide 19 L (23-29) mEq/L BUN 40 H (8-23) mg/dL Creatinine 2.01 H (0.60-1.20) mg/dL Est GFR ( Amer) 29 L (> 60) Est GFR (Non-Af Amer) 24 L (> 60) BUN/Creatinine Ratio 20 (6-26) Glucose 105 (70-105) mg/dL Calculated Osmolality 292 (280-300) Calcium 9.2 (8.6-10.3) mg/dL Troponin I < 0.03 (< 0.04) ng/mL Urine Color (Yellow) Urine Clarity (Clear) Urine pH (5.0-8.0) pH Units Ur Specific [place] (1.010-1.025) Urine Protein (Neg-Trace) mg/dL Urine Glucose (UA) (Normal) mg/dL Urine Ketones (Negative) mg/dL Urine Blood (Negative) Urine Nitrite (Negative) Urine Bilirubin (Negative) Urine Urobilinogen (Normal) mg/dL Ur Leukocyte Esterase (Negative) Urine Microscopic RBC (0-3) per hpf Urine Microscopic WBC (0-3) per hpf Ur Squamous Epith Cells (None-Few) per lpf Urine Bacteria (None-Few) per hpf Hyaline Casts (None-Few) per lpf Ur Culture Indicated? (NO) Attestation Statement - Attestation Attestation: For this encounter, I have reviewed the ENGINEERING TECHNOLOGY INSTRUCTOR or PA documentation, treatment plan, and medical decision making; and I have had face to face time with this patient. Patient 77-year-old who got up in the night and got dizzy and thinks she passed out. She fell struck her head on the nightstand. Physical exam the patient awake and alert her [place] Coma Scale is 15. We will obtain CT scans and syncopy workup patient will be admitted.
[2018-01-19 09:50] LABS: BUN/Creatinine Ratio 20 (6-26); Blood Urea Nitrogen 40 mg/dL (8-23); Calcium 9.2 mg/dL (8.6-10.3); Carbon Dioxide 19 mEq/L (23-29); Chloride 109 mEq/L (98-107); Glucose 105 mg/dL (70-105); Osmolality,Calculated 292 (280-300); Potassium 5.1 mEq/L (3.5-5.1); Sodium 136 mEq/L (136-145); eGFR For African Americans 29 (> 60); eGFR For Non-African Americans 24 (> 60)
[2018-01-19 09:51] LABS: Troponin I < 0.03 ng/mL (< 0.04)
[2018-01-19] MEDS ORDERED: Naloxone 0.4 MG/ML INJ IVP PRN (13:28)
[2018-01-19] MEDS ORDERED: Ondansetron ODT 4 MG TAB.RAPDIS SL PRN (13:34)
--- NOTE | 2018-01-19 13:50 | Internal Med History&Physical ---
<Nadiya Duong R - Last Filed: 01/19/18 13:40> Date of Encounter: 01/19/18 Time of Encounter: 13:40 Internal Medicine - H&P: HPI Chief complaint: chest pain and fall with injury Admitted From: Home Plans for Post Hospital Care: Home History of present illness: Ms. Rain is a 77 year old female, with history of diabetes mellitus, seizure D/ O, syncope, TIA and CKD. Presents presents today with a fall at 3 AM followed by a period of unconsciousness. Patient's did not witness the fall however, help patient stated that she was conscious when he arrived to assist her. Patient indicated she had dizziness and chest pain following the fall. Large bruised areas to right flank areas. X-ray of pelvis negative for fracture however bilateral hip osteoarthritis was noted, cervical x-ray negative , chest x-ray and chest CT negative and head CT negative for acute abnormality, small vessel ischemic disease was noted. Neuro check completed in no focal deficits noted strength equal in all extremities. Patient troponin negative less than 0.03, echo done in January 2017, ejection fraction 60-65%, mild left ventricular diastolic dysfunction and mild dilated left atrium. Carotid Doppler done at the time was essentially normal, stressed patient was stressed on May 2017 which was positive. Patient was also given a Holter monitor in May 2017 due to she shortness of breath and palpitaions, her average heart rate was 58 lowest heart rate during that time was 49, patient had ectopy which consisted of SVT and PACs. She was here again in November 2017 to have left heart catheter performed with Dr. Holly. During that time creatinine had elevated up to 2.90 patient baseline around 1.8 the procedure was diverted at that time. Today creatinine is 2.01, patient continues to complain of dull midsternal chest pain. Consult to Dr. Holly, cardiology, stated will see the patient. Recommended an echocardiogram. Past Med Surg Social Fam HX - Past Medical History Medical history: arthritis, asthma, atrial fibrillation, CVA, diabetes, GERD, hyperlipidemia, hypertension, osteoporosis, peripheral artery disease, seizures , TIA, other Additional medical history: DIVERTICULITIS. POLYPS. CAD. DM II. CVA 1991. MULTIPLE TIA'S. DM NEUROPATHY. BRAIN ANEURYSM Psychiatric history: anxiety, depression - Past Surgical History Surgical History: other Additional surgical history: COLONOSCOPY. EGD - Social History Smoking Status: Never smoker Smokeless Tobacco Status: No Alcohol use: none Drug use: none - Family History Father Living Status: Hx Family Cardiac Disorders: Yes Brother Living Status: Hx Family Cancer: Yes (stomach) Sister Living Status: Hx Family Cardiac Disorders: Yes Mother Living Status: Hx Family Cardiac Disorders: Yes Hx Family Cancer: Yes (stomach) Internal Medicine - H&P: Meds RX: Insulin ASPART [NovoLOG] 5 unit SQ TIDWM 07/30/15 [History] RX: Montelukast [Singulair] 10 mg PO QPM 07/30/15 [History] RX: TraZODone 50 mg PO HS PRN 07/30/15 [History] RX: Zolpidem [Ambien] 5 mg PO HS PRN 07/30/15 [History] RX: Aspirin 81 mg PO DAILY #90 tab.chew 11/21/15 [Rx] RX: ARIPiprazole [Abilify] 2 mg PO DAILY 09/08/16 [History] RX: Albuterol Sulfate [Albuterol Inhaler] 2 puff IH Q6H PRN 09/08/16 [History] RX: Atorvastatin [Lipitor] 40 mg PO HS 09/08/16 [History] RX: Clopidogrel [Plavix] 75 mg PO DAILY 09/08/16 [History] RX: Docusate [Colace] 100 mg PO BID #60 capsule 09/08/16 [Rx] RX: Gabapentin [Neurontin] 600 mg PO BID 09/08/16 [History] RX: Guaifenesin [Mucinex] 600 mg PO Q12H 09/08/16 [History] RX: Insulin DETEMIR [Levemir Flextouch] 30 unit SQ HS 09/08/16 [History] RX: Loratadine [Allergy Relief] 10 mg PO DAILY 09/08/16 [History] RX: Metoclopramide [Reglan] 10 mg PO QIDAC 09/08/16 [History] RX: Metoprolol [Lopressor] 50 mg PO BID 09/08/16 [History] RX: Sodium Bicarbonate 650 mg PO BID 09/08/16 [History] RX: Venlafaxine HCl [Venlafaxine HCl ER] 150 mg PO DAILY 09/08/16 [History] RX: Acetaminophen [Tylenol] 500 mg PO Q6HR PRN 01/08/17 [History] RX: Omeprazole [PriLOSEC] 40 mg PO DAILY 01/08/17 [History] HYDROcodone/Acet 5/325 mg [[place] 5-325 mg] 0.5 tab PO Q6H PRN #10 tab 02/05/17 [ Rx] Colesevelam HCl [Welchol] 625 mg PO TIDWM 11/16/17 [History] Isosorbide MONOnitrate (24 HR) [Imdur] 30 mg PO DAILY 11/16/17 [History] Ondansetron HCl [Zofran] 4 mg SL Q8H PRN 11/16/17 [History] amLODIPine [Norvasc] 5 mg PO DAILY 11/16/17 [History] Furosemide [Lasix] 20 mg PO BID 01/19/18 [History] Pioglitazone HCl [Actos] 45 mg PO DAILY 01/19/18 [History] Topiramate [Topamax] 50 mg PO DAILY 01/19/18 [History] 3 Allergy/AdvReac Type Severity Reaction Status Date / Time Iodinated Contrast- Oral and Allergy Anaphylaxis Verified 02/05/17 08:30 IV Dye [Iodinated Contrast Media - IV Dye] latex Allergy Rash Verified 11/16/17 07:42 codeine AdvReac Gastrointestinal Verified 02/05/17 08:30 Upset All Systems PM: A 10-system review of systems was performed and is negative for pertinent findings except as documented above in the HPI. - Constitutional Constitutional: no chills, no fever(s), no night sweats - EENT Eyes: no change in vision, no discharge, no pain, no photophobia Ears: no ear discharge, no ear pain, no tinnitus Nose, mouth and throat: no dysphagia, no nasal discharge, no neck pain, no sore throat - Cardiovascular Cardiovascular ROS IM: chest pain, syncope, no diaphoresis, no dyspnea, no lightheadedness, no palpitations - Respiratory Respiratory: no cough, no dyspnea, no wheezing, no excessive phlegm production - Gastrointestinal Gastrointestinal: diarrhea, no abdominal pain, no hematemesis, no hematochezia, no melena, no nausea, no vomiting - Genitourinary Genitourinary: no change in urinary stream, no dysuria, no flank pain, no hematuria - Musculoskeletal Musculoskeletal ROS IM: no numbness, no tingling - Integumentary Integumentary IM: other (Right flank area bruising), no rash, no unusual bruising - Neurological Neurological ROS: no confusion, no convulsions, no focal weakness, no numbness, no tingling, no tremor(s) - Hematologic/Lymphatic Hematologic/Lymphatic: no easy bruising - Constitutional Vitals: Temp Pulse Resp BP Pulse Ox 98.2 F 74 14 165/76 98 01/19/18 13:24 01/19/18 13:24 01/19/18 13:24 01/19/18 13:24 01/19/18 13:24 General appearance: Present: A&O X 3 - Head Head exam: Present: atraumatic, normocephalic - Eye Eye exam: Present: PERRL, conjuntiva pink, sclera anicteric Pupils: Present: PERRL - Neck Neck exam general surgery: Present: supple, trachea midline. Absent: lymphadenopathy - Respiratory Respiratory exam: Present: CTAB. Absent: accessory muscle use, rales, rhonchi, wheezes - Cardiovascular Cardiovascular exam: Present: RRR, +S1, +S2. Absent: diastolic murmur, gallop, rubs, systolic murmur - GI/Abdominal GI/Abdominal exam: Present: normal bowel sounds, soft, no peritoneal signs. Absent: distended, tenderness - Extremities Exam Extremities exam: Present: warm, radial pulses palpable and symmetrical. Absent : calf tenderness, cyanotic, pedal edema - Neurological Exam Neurological exam: Present: alert, CN II-XII intact, oriented X3, no focal deficits, strengths equal and symetr throughout. Absent: pronater drift, facial droop, speech deficit - Skin Skin exam: Present: dry, erythema (Erythema and brusining to right flank from fall), intact Internal Med - H&P Results - Labs CBC & Chem 7: 01/19/18 09:11 01/19/18 09:11 - Assessment and plan (1) Chest pain, rule out acute myocardial infarction Current Visit: Yes Status: Acute Assessment and plan: Serial cardiac troponins Cardiac monitoring Cardiology consulted, no plans for Heart cath at this time Echocardiogram in am (2) Fall with injury Current Visit: Yes Status: Acute Assessment and plan: Multiple xrays completed, no fractures seen Ct of head showed no acute abnormality Orthostatics daily Cardiac monitoring Neuro checks q shift Qualifiers: Encounter type: initial encounter Qualified Code(s): W19.XXXA - Unspecified fall, initial encounter (3) CKD (chronic kidney disease) Current Visit: No Status: Chronic Assessment and plan: Monitor daily labs Continue to follow nephrology outpatient Qualifiers: Chronic kidney disease stage: stage 4 (severe) Qualified Code(s): N18.4 - Chronic kidney disease, stage 4 (severe) (4) Diabetes Current Visit: No Status: Acute Assessment and plan: Accu checks ac/hs, Continue novolog insulin coverage 5 units sq TID, and levimir 30 units sq daily. 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 Will continue home medications:Metoprolol. Likely elevated today due to chest pain. Qualifiers: Hypertension type: essential hypertension Qualified Code(s): I10 - Essential (primary) hypertension - Time Spent With Patient Total time spent is greater than 50% in coordination of care (as documented) at patient's floor/unit and/or counseling patient: <Wesley Kent P - Last Filed: 01/19/18 17:20> Date of Encounter: 01/19/18 Internal Medicine - H&P: HPI History of present illness: Ms. Rain is a 77 year old female All Systems PM: A 10-system review of systems was performed and is negative for pertinent findings except as documented above in the HPI. - Constitutional Vitals: Temp Pulse Resp BP Pulse Ox 98.3 F 58 22 170/79 94 01/19/18 16:30 01/19/18 16:30 01/19/18 16:30 01/19/18 16:30 06/12/18 16:30 Internal Med - H&P Results - Labs CBC & Chem 7: 01/19/18 09:11 01/19/18 09:11 - Attending Attestation I have seen and examined the patient. I have performed my own physical examination. I have discussed case with admitting MICE RAISER. I agree with MICE RAISER's assessment and plan as documented in her note. Briefly, patient presented after questionable syncopal episode and fall. No fractures or head injury confirmed by ED imaging. However, having chest pain. Cardiology consulted, and will see patient. They recommend repeat ECHO and trending troponins. Will hydrate gently with IVF for CKD. BP trending up; will continue home medications and add PRN IV hydralazine. Wesley Kent MD - Time Spent With Patient Total time spent is greater than 50% in coordination of care (as documented) at patient's floor/unit and/or counseling patient:
[2018-01-19] MEDS ORDERED: *HR* Dextrose 50 % in Water (Syg) 50 ML SYRINGE IVP PRN ×2 (14:24→17:08)
[2018-01-19] MEDS ORDERED: Dextrose Gel 15 GM/37.5 ML TUBE PO PRN ×4 (14:24→17:08)
[2018-01-19] MEDS ORDERED: D5% in Water 1,000 ML IVC PRN ×2 (14:24→17:08)
--- NOTE | 2018-01-19 14:32 | Cardiology Consult Note ---
<Ihsan Thompson - Last Filed: 01/19/18 14:24> Date of Encounter: 01/19/18 Time of Encounter: 14:24 Assessment and Plan (1) Chest pain Current Visit: Yes Status: Acute Patient describes pain as a soreness that is worse with pressing to the left anterior/superior chest wall. No other acute ACS equivalent symptoms. Pain began after full, but was not noticed prior to fall. EKG obtained today without acute ischemic changes and comparable to prior EKG on 06/02/2017. ACS unlikely; acute pain more likely related to the fall. Still, given her significant history and potential underlying underlying CAD, cannot ignore the possibility of ACS/UA. - Updated echocardiogram pending - agree with cycling troponins - recommend continue on telemetry - repeat EKG if chest pain changes or worsens - will keep NPO at midnight for possible consideration of ischemic evaluation Qualifiers: Chest pain type: other chest pain Qualified Code(s): R07.89 - Other chest pain; R07.8 - Other chest pain Discussion w patient/family: The assessment and plan as outlined above was discussed with the patient and/or family members who expressed understanding and agreement. All questions were answered. Thank you for involving us in the care of your patient. Please call with any questions. History of Present Illness Consult date: 01/19/18 Requesting physician: Nadiya Dunog Consult reason: Chest pain Chief complaint: "Fell this morning and hurts all over" History of present illness: Ms. Rain is a 77 year old female with past medical history of arthritis, asthma , COPD, atrial fibrillation, CVA, diabetes on insulin, GRD, HLP, HTN, PAD, and chronic kidney disease. Presented to the emergency department for evaluation of pain secondary to fall she sustained at 0300 this morning. Has multifocal pain after this fall including left-sided superior chest wall tenderness/pain. Patient states woke up at about 0300 this morning to go to the bathroom and fell backwards. Patient does not remember stumbling or tripping. Patient's attended to her right away and states she was not unconscious. Patient denies hitting her head. Patient states hurts and multiple areas including the left ankle, left knee, left hip, left anterior superior chest wall, and right upper back. Patient denies any preceding chest pain. Patient cheung scanned in the emergency department finding no osseous abnormalities. Patient describes chest pain as focal to the left upper chest wall and is significantly worse when pressing. Patient denies any other provoking factors. Patient has not had any concurrent profuse sweating, lightheadedness, dizziness, palpitations, abdominal upset/vomiting. It is unclear whether or not she lost consciousness prior to following as patient has poor recollection of the fall itself. Patient has been in consideration for LHC in recent months, but has apparently missed several visits for this. LHC was deferred on one occasion due to acute kidney injury on chronic kidney disease. Current creatinine 2.01. Most recent echo in January 2017 with an EF 60 to 65% and a mild left ventricular diastolic dysfunction. Past Med Surg Social Fam HX - Past Medical History Attestation: Yes The following information was validated with the patient. Source: patient, old records reviewed Medical history: arthritis, asthma, atrial fibrillation, CVA, diabetes, GERD, hyperlipidemia, hypertension, osteoporosis, peripheral artery disease, seizures , TIA, other Additional medical history: DIVERTICULITIS. POLYPS. CAD. DM II. CVA 1991. MULTIPLE TIA'S. DM NEUROPATHY. BRAIN ANEURYSM Psychiatric history: anxiety, depression - Past Surgical History Surgical History: other Additional surgical history: COLONOSCOPY. EGD - Social History Smoking Status: Never smoker Smokeless Tobacco Status: No Alcohol use: none Drug use: none - Family History Father Living Status: Hx Family Cardiac Disorders: Yes Brother Living Status: Hx Family Cancer: Yes (stomach) Sister Living Status: Hx Family Cardiac Disorders: Yes Mother Name: Colleen Dwyer Living Status: Age at : 84 Hx Family Cardiac Disorders: Yes Hx Family Cancer: Yes (stomach) Medications and Allergies Insulin ASPART [NovoLOG] 5 unit SQ TIDWM 07/30/15 [History] Montelukast [Singulair] 10 mg PO QPM 07/30/15 [History] TraZODone 50 mg PO HS PRN 07/30/15 [History] Zolpidem [Ambien] 5 mg PO HS PRN 07/30/15 [History] Aspirin 81 mg PO DAILY #90 tab.chew 11/21/15 [Rx] ARIPiprazole [Abilify] 2 mg PO DAILY 09/08/16 [History] Albuterol Sulfate [Albuterol Inhaler] 2 puff IH Q6H PRN 09/08/16 [History] Atorvastatin [Lipitor] 40 mg PO HS 09/08/16 [History] Clopidogrel [Plavix] 75 mg PO DAILY 09/08/16 [History] Docusate [Colace] 100 mg PO BID #60 capsule 09/08/16 [Rx] Gabapentin [Neurontin] 600 mg PO BID 09/08/16 [History] Guaifenesin [Mucinex] 600 mg PO Q12H 09/08/16 [History] Insulin DETEMIR [Levemir Flextouch] 30 unit SQ HS 09/08/16 [History] Loratadine [Allergy Relief] 10 mg PO DAILY 09/08/16 [History] Metoclopramide [Reglan] 10 mg PO QIDAC 09/08/16 [History] Metoprolol [Lopressor] 50 mg PO BID 09/08/16 [History] Sodium Bicarbonate 650 mg PO BID 09/08/16 [History] Venlafaxine HCl [Venlafaxine HCl ER] 150 mg PO DAILY 09/08/16 [History] Acetaminophen [Tylenol] 500 mg PO Q6HR PRN 01/08/17 [History] Omeprazole [PriLOSEC] 40 mg PO DAILY 01/08/17 [History] HYDROcodone/Acet 5/325 mg [[place] 5-325 mg] 0.5 tab PO Q6H PRN #10 tab 02/05/17 [ Rx] Colesevelam HCl [Welchol] 625 mg PO TIDWM 11/16/17 [History] Isosorbide MONOnitrate (24 HR) [Imdur] 30 mg PO DAILY 11/16/17 [History] Ondansetron HCl [Zofran] 4 mg SL Q8H PRN 11/16/17 [History] amLODIPine [Norvasc] 5 mg PO DAILY 11/16/17 [History] Furosemide [Lasix] 20 mg PO BID 01/19/18 [History] Pioglitazone HCl [Actos] 45 mg PO DAILY 01/19/18 [History] Topiramate [Topamax] 50 mg PO DAILY 01/19/18 [History] 3 Allergy/AdvReac Type Severity Reaction Status Date / Time Iodinated Contrast- Oral and Allergy Anaphylaxis Verified 02/05/17 08:30 IV Dye [Iodinated Contrast Media - IV Dye] latex Allergy Rash Verified 11/16/17 07:42 codeine AdvReac Gastrointestinal Verified 02/05/17 08:30 Upset All Systems Review: Does have history of fatigue and exertional shortness of breath. Denies any acute change in the symptoms. Denies fevers, chills, sweats, myalgias, headache , palpitations, radiating a pain into jaw or shoulders, nausea, vomiting, abdominal pain, diarrhea, constipation, dysuria, hematuria, pedal edema, or skin rash. Physical Examination Vital Signs, Last 4 Hours Temp Pulse Resp BP Pulse Ox 01/19/18 13:24 98.2 F 74 14 165/76 98 General: Conversant, No Apparent Distress HEENT: Atraumatic, Normocephaly, Mucus Membranes Moist Neck: Normal carotid pulses Cardiac: Reg Rate and Rhythm, Normal S1 and S2, No Murmur, Other (Specifically focal left anterior/superior chest wall tenderness; no such tenderness to the right side of the chest) Lungs: Normal Breath Sounds, No Wheeze, Rales, Rhonchi Neuro: Alert and responsive, No focal deficits noted Abdomen: Soft, Non-Tender Skin: No rashes noted on visualized skin Musculoskeletal: No Chest Wall Tenderness Extremities: No Clubbing, No Cyanosis, No Edema, Normal Pulses Results 01/19/18 09:11 01/19/18 09:11 Consult Discharge Plan - Plan Referrals: Demarco Trevizo MD [Primary Care Provider] - <Aisha Holly - Last Filed: 01/20/18 08:38> Date of Encounter: 01/20/18 - Attending Attestation I examined this patient and my medical decision-making was reviewed with the Resident Physician. I agree with the documented findings, disposition and treatment plan as described except to the extent set forth below. 77 YOF with previous negative stress test s/p fall and fracture rib complains of chest pain reproducible with deep palpation. Negative CE's without ischemic changes to her EKG. Patient interested in a LHC howver no clear indication. Will proceed with a NST due to her comorbidities and CRFs. Assessment and Plan Discussion w patient/family: The assessment and plan as outlined above was discussed with the patient and/or family members who expressed understanding and agreement. All questions were answered. Thank you for involving us in the care of your patient. Please call with any questions. History of Present Illness History of present illness: Ms. Rain is a 77 year old female All Systems Review: The remainder of the systems were reviewed and are negative Physical Examination Vital Signs, Last 4 Hours Temp Pulse Resp BP Pulse Ox 01/20/18 06:27 98.0 F 57 14 155/68 98 Results 01/20/18 05:20 01/20/18 05:20 Lab Results 01/19/18 01/19/18 01/20/18 18:01 22:47 05:20 WBC 6.0 Hgb 9.9 L Hct 31.1 L Plt Count 159 Sodium Potassium Chloride Carbon Dioxide BUN Creatinine Glucose Calcium Magnesium Troponin I < 0.03 < 0.03 01/20/18 01/20/18 05:20 05:20 WBC Hgb Hct Plt Count Sodium 135 L Potassium 4.9 Chloride 109 H Carbon Dioxide 19 L BUN 38 H Creatinine 1.96 H Glucose 117 H Calcium 9.3 Magnesium 2.0 Troponin I < 0.03
[2018-01-19] MEDS ORDERED: amLODIPine 5 MG TABLET PO ONE (15:21)
[2018-01-19] MEDS: 0.9 % Sodium Chloride 1,000 ML IVC SCH (17:45)
[2018-01-19] MEDS: Insulin LISPRO 300 UNITS/3 ML VIAL SQ SCH ×2 (17:45→23:02)
--- NOTE | 2018-01-19 22:07 | Electrocardiograph Report ---
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
[2018-01-19] MEDS: Insulin DETEMIR 100 UNIT/ML X5UNITS SQ SCH (22:53)
[2018-01-19] MEDS: Furosemide 20 MG TABLET PO SCH (22:53)
[2018-01-19] MEDS: *HR* HYDROcodone/Acet 5/325 mg TABLET PO PRN (23:01)
[2018-01-19] MEDS: Gabapentin 300 MG CAPSULE PO SCH (23:13)
[2018-01-20 05:45] LABS: Basophils % 0.3 %; Eosinophils # 0.4 K/mcL (0.0-0.6); Eosinophils % 6.9 %; Hematocrit 31.1 % (35.3-44.9); Hemoglobin 9.9 g/dL (11.5-15.4); Immature Granulocytes % 0.2 % (0-4); Lymphocytes # 1.7 K/mcL (0.6-4.6); Lymphocytes % 28.4 %; Mean Corpuscular HGB Conc 31.8 g/dL (31.6-35.5); Mean Corpuscular Hemoglobin 29.6 pg (28.0-33.3); Mean Corpuscular Volume 93.1 fL (83.0-100.0); Mean Platelet Volume 9.4 fL (9.4-12.4); Monocytes # 0.5 K/mcL (0.0-1.3); Monocytes % 8.5 %; Neutrophils # 3.3 K/mcL (1.6-8.9); Platelet Count 159 K/mcL (140-400); Red Blood Count 3.34 M/mcL (3.82-4.97); Red Cell Distribution Width 14.6 % (11.5-14.5); Segmented Neutrophils % 55.7 %
[2018-01-20 05:56] LABS: Calcium 9.3 mg/dL (8.6-10.3); Chol/HDL Ratio 3.8 (0-4.9); Potassium 4.9 mEq/L (3.5-5.1)
[2018-01-20 08:21] LABS: Estimated Average Glucose 197 mg/dl; Hemoglobin A1C 8.5 %
[2018-01-20] MEDS: Insulin LISPRO 300 UNITS/3 ML VIAL SQ SCH ×7 (09:09→22:30)
[2018-01-20] MEDS: Gabapentin 300 MG CAPSULE PO SCH ×2 (09:15→22:28)
[2018-01-20] MEDS: Loratadine 10 MG TABLET PO SCH (09:15)
[2018-01-20] MEDS: Aspirin 81 MG TAB.CHEW PO SCH (09:15)
[2018-01-20] MEDS: amLODIPine 5 MG TABLET PO SCH (09:16)
[2018-01-20] MEDS: Topiramate 25 MG TABLET PO SCH (09:16)
[2018-01-20] MEDS: *HR* Pioglitazone 45 MG TABLET PO SCH (09:16)
[2018-01-20] MEDS: Venlafaxine XR (24 HR) 150 MG CAP.ER.24H PO SCH (09:16)
[2018-01-20] MEDS: Furosemide 20 MG TABLET PO SCH ×2 (09:17→16:25)
[2018-01-20] MEDS: ARIPiprazole 2 MG TABLET PO SCH (09:17)
[2018-01-20] MEDS: Isosorbide MONOnitrate (24 HR) 30 MG TAB.ER.24H PO SCH (09:17)
--- NOTE | 2018-01-20 11:03 | Cardiology Progress Note ---
<Ihsan Thompson - Last Filed: 01/20/18 11:17> Date of Encounter: 01/20/18 Time of Encounter: 11:03 Assessment and Plan (1) Chest pain Current Visit: Yes Status: Acute Paucity of ACS symptoms. Timing after a fall. EKG was normal on presentation and troponins negative x3. Echo demonstrated LVEF of 60%, mild left ventricular diastolic dysfunction, and mild concentric LVH. Still most likely injurious, but pending NST for possible ischemia given comorbidities. -- if positive for ischemia, may proceed with LHC -- if negative NST, OP follow up would be appropriate Qualifiers: Chest pain type: other chest pain Qualified Code(s): R07.89 - Other chest pain; R07.8 - Other chest pain Discussion w patient/family: The assessment and plan as outlined above was discussed with the patient and/or family members who expressed understanding and agreement. All questions were answered. Thank you for involving us in the care of your patient. Please call with any questions. Subjective Interval history: Uneventful course. No change in character or worsening of chest wall pain. Does not hurt when completely still. She still endorses pain with movement and direct palpation of left anterior chest wall. No acute concerns. No other ACS equivalent symptoms. Objective Vital Signs, Last 4 Hours Temp Pulse Resp BP Pulse Ox 01/20/18 10:33 98.1 F 54 13 145/78 98 General: Conversant, No Apparent Distress HEENT: Atraumatic, Normocephaly, Mucus Membranes Moist Neck: Normal carotid pulses Cardiac: Reg Rate and Rhythm, Normal S1 and S2, No Murmur, Other (Specifically focal left anterior/superior chest wall tenderness) Lungs: Normal Breath Sounds, No Wheeze, Rales, Rhonchi Neuro: Alert and responsive, No focal deficits noted Abdomen: Soft, Non-Tender Skin: No rashes noted on visualized skin Musculoskeletal: No Chest Wall Tenderness Extremities: No Clubbing, No Cyanosis, No Edema, Normal Pulses Results 01/20/18 05:20 01/20/18 05:20 Lab Results 01/19/18 01/19/18 01/20/18 18:01 22:47 05:20 WBC 6.0 Hgb 9.9 L Hct 31.1 L Plt Count 159 Sodium Potassium Chloride Carbon Dioxide BUN Creatinine Glucose Calcium Magnesium Troponin I < 0.03 < 0.03 01/20/18 01/20/18 05:20 05:20 WBC Hgb Hct Plt Count Sodium 135 L Potassium 4.9 Chloride 109 H Carbon Dioxide 19 L BUN 38 H Creatinine 1.96 H Glucose 117 H Calcium 9.3 Magnesium 2.0 Troponin I < 0.03 Consult Discharge Plan - Plan Referrals: Demarco Trevizo MD [Primary Care Provider] - <Aisha Holly - Last Filed: 01/20/18 11:44> Date of Encounter: 01/20/18 Assessment and Plan (1) Chest pain Current Visit: Yes Status: Acute Paucity of ACS symptoms. Timing after a fall. EKG was normal on presentation and troponins negative x3. Echo demonstrated LVEF of 60%, mild left ventricular diastolic dysfunction, and mild concentric LVH. Still most likely injurious, but pending NST for possible ischemia given comorbidities. -- if positive for ischemia, may proceed with LHC -- if negative NST, OP follow up would be appropriate I examined this patient and my medical decision-making was reviewed with the Resident Physician. I agree with the documented findings, disposition and treatment plan as described except to the extent set forth below. Atypical chest pain NST pending CKD with negative CE's make LHC less likely unless perfusion abnormalities Qualifiers: Chest pain type: other chest pain Qualified Code(s): R07.89 - Other chest pain; R07.8 - Other chest pain Discussion w patient/family: The assessment and plan as outlined above was discussed with the patient and/or family members who expressed understanding and agreement. All questions were answered. Thank you for involving us in the care of your patient. Please call with any questions. Objective Vital Signs, Last 4 Hours Temp Pulse Resp BP Pulse Ox 01/20/18 10:33 98.1 F 54 13 145/78 98 01/20/18 09:00 98 Results 01/20/18 05:20 01/20/18 05:20 Lab Results 01/19/18 01/19/18 01/20/18 18:01 22:47 05:20 WBC 6.0 Hgb 9.9 L Hct 31.1 L Plt Count 159 Sodium Potassium Chloride Carbon Dioxide BUN Creatinine Glucose Calcium Magnesium Troponin I < 0.03 < 0.03 01/20/18 01/20/18 05:20 05:20 WBC Hgb Hct Plt Count Sodium 135 L Potassium 4.9 Chloride 109 H Carbon Dioxide 19 L BUN 38 H Creatinine 1.96 H Glucose 117 H Calcium 9.3 Magnesium 2.0 Troponin I < 0.03
--- NOTE | 2018-01-20 14:52 | Internal Med Progress Note ---
Date of Encounter: 01/20/18 Time of Encounter: 14:39 - Assessment and plan (1) Chest pain Current Visit: Yes Status: Acute Assessment and plan: Serial troponin negative Patient last episodes of chest pain overnight hemodynamically stable. Cardiology consulted, recommendations appreciated Nitro prn pain Possiblly getting stress test for further evaluation. Qualifiers: Chest pain type: other chest pain Qualified Code(s): R07.89 - Other chest pain; R07.8 - Other chest pain (2) CKD (chronic kidney disease) stage 3, GFR 30-59 ml/min Current Visit: No Status: Chronic Assessment and plan: At baseline compared to prior labs Avoid nephrotoxins renally dose medications Decrease gabapentin to 300 mg BID. (3) Diabetes mellitus Current Visit: No Status: Chronic Assessment and plan: Resume home insulin ISS Diabetic diet when allowed PO. Qualifiers: Diabetes mellitus type: type 2 Diabetes mellitus promotion producer insulin use: with promotion producer use Diabetes mellitus complication status: with kidney complications Diabetes mellitus complication detail: with chronic kidney disease Chronic kidney disease stage: stage 3 (moderate) Qualified Code(s): E11.22 - Type 2 diabetes mellitus with diabetic chronic kidney disease; N18.3 - Chronic kidney disease, stage 3 (moderate); Z79.4 - penitentiary (current) use of insulin (4) Fall with injury Current Visit: Yes Status: Acute Assessment and plan: Multiple xrays completed, no fractures seen Ct of head showed no acute abnormality Orthostatics daily Cardiac monitoring Neuro checks q shift Ruling out cardiac etiology as this was accompanied with chest pain. Qualifiers: Encounter type: initial encounter Qualified Code(s): W19.XXXA - Unspecified fall, initial encounter (5) Hypertension Current Visit: Yes Status: Acute Qualifiers: Hypertension type: essential hypertension Qualified Code(s): I10 - Essential (primary) hypertension (6) Syncope Current Visit: No Status: Acute Assessment and plan: Workup for ACS plan as above Multiple xrays completed, no fractures seen Ct of head showed no acute abnormality Orthostatics daily Cardiac monitoring Neuro checks q shift Qualifiers: Syncope type: unspecified Qualified Code(s): R55 - Syncope and collapse - Time Spent With Patient Total time spent is greater than 50% in coordination of care (as documented) at patient's floor/unit and/or counseling patient: - Subjective Interval history: Patient states last episode of CP was overnight Has no episodes since Denies SOB, n/v, numbness/tingling palpitations. - Constitutional Vitals: Temp Pulse Resp BP Pulse Ox 98.1 F 54 13 145/78 98 01/20/18 10:33 01/20/18 10:33 01/20/18 10:33 01/20/18 10:33 01/20/18 10:33 General appearance: Present: A&O X 3 Exam: - Head Head exam: Present: atraumatic, normocephalic - Eye Eye exam: Present: PERRL, conjuntiva pink, sclera anicteric Pupils: Present: PERRL - Neck Neck exam general surgery: Present: supple, trachea midline. Absent: lymphadenopathy - Respiratory Respiratory exam: Present: CTAB. Absent: accessory muscle use, rales, rhonchi, wheezes - Cardiovascular Cardiovascular exam: Present: RRR, +S1, +S2. Absent: diastolic murmur, gallop, rubs, systolic murmur - GI/Abdominal GI/Abdominal exam: Present: normal bowel sounds, soft, no peritoneal signs. Absent: distended, tenderness - Extremities Exam Extremities exam: Present: warm, radial pulses palpable and symmetrical. Absent : calf tenderness, cyanotic, pedal edema - Neurological Exam Neurological exam: Present: alert, CN II-XII intact, oriented X3, no focal deficits, strengths equal and symetr throughout. Absent: pronater drift, facial droop, speech deficit Internal Medicine: Result - Labs CBC & Chem 7: 01/20/18 05:20 01/20/18 05:20 Labs: Short CBC 01/20/18 Range/Units 05:20 WBC 6.0 (4.3-11.1) K/mcL Hgb 9.9 L (11.5-15.4) g/dL Hct 31.1 L (35.3-44.9) % Plt Count 159 (140-400) K/mcL Neutrophils # 3.3 (1.6-8.9) K/mcL BMP 01/20/18 05:20 Sodium 135 L Potassium 4.9 Chloride 109 H Carbon Dioxide 19 L BUN 38 H Creatinine 1.96 H Glucose 117 H Calcium 9.3 Cardiac Enzymes 01/19/18 01/19/18 01/20/18 Range/Units 18:01 22:47 05:20 Troponin I < 0.03 < 0.03 < 0.03 (< 0.04) ng/mL - ABG Interpretation ABG results: PT/INR, D-dimer PT 11.3 Seconds (9.4-12.1) 01/19/18 09:11 - Impressions Impressions Echocardiogram 01/20/18 08:00 Impressions: LVEF 60%. Mild left ventricular diastolic dysfunction. Mild concentric left ventricular hypertrophy. Right ventricle wall thickness appears increased. Size and function are normal. No significant valvular dysfunction. No pulmonary hypertension. Left Ventricular Wall Motion: Rest Echo Findings All wall segments showed normal motion. Findings: Study Quality * Technically adequate exam. ECG Findings * Sinus bradycardia. Left Ventricle * LVEF 60%. * Mild left ventricular diastolic dysfunction. * Mild concentric left ventricular hypertrophy. Right Ventricle * Right ventricle wall thickness appears increased. Size and function are normal. Left Atrium * Moderately dilated left atrium. Right Atrium * Normal right atrial size. Mitral Valve * Normal mitral valve structure. * No mitral stenosis. * Trace mitral regurgitation. Aortic Valve * No aortic regurgitation. * Trileaflet aortic valve. * No aortic stenosis. Tricuspid Valve * Tricuspid valve not well visualized. * Trace tricuspid regurgitation. * Estimated RA pressure is 3 mmHg. * Estimated RVSP is 22 mmHg. * No pulmonary hypertension. Pulmonic Valve * Pulmonic valve is not well visualized. * No pulmonic stenosis. * Trace pulmonic regurgitation. Pulmonary Artery * Pulmonary artery not well visualized. Aorta * Normally sized aortic root. Pericardium * There is no pericardial effusion present. Interatrial Septum * No evidence of PFO by color Doppler. IVC * Normal IVC dimensions and inspiratory collapse. Consult Discharge Plan - Plan Referrals: Demarco Trevizo MD [Primary Care Provider] -
[2018-01-20] MEDS ORDERED: Nitroglycerin 0.4 MG TAB.SUBL SL PRN (14:58)
--- NOTE | 2018-01-20 15:24 | Event Note ---
Date of Encounter: 01/20/18 Time of Encounter: 15:20 - Cardiology Event Note I received a phone call from Dr. Thompson our current cardiology resident indicating need for order for nonexercise nuclear stress test. Recent note reviewed and does have recommendations to proceed with stress testing by Dr. Holly, however no orders noted Order placed for tomorrow, Cardiology service will review in the morning to assure test warranted.
[2018-01-20] MEDS: 0.9 % Sodium Chloride 1,000 ML IVC SCH (22:21)
[2018-01-20] MEDS: Insulin DETEMIR 100 UNIT/ML X5UNITS SQ SCH (23:51)
[2018-01-21] MEDS ORDERED: Regadenoson 0.4 MG/5 ML SYRINGE IVP ONE (06:14)
[2018-01-21 07:02] LABS: Basophils % 0.3 %; Eosinophils # 0.5 K/mcL (0.0-0.6); Eosinophils % 5.2 %; Hematocrit 32.1 % (35.3-44.9); Hemoglobin 10.1 g/dL (11.5-15.4); Immature Granulocytes % 0.2 % (0-4); Lymphocytes # 3.7 K/mcL (0.6-4.6); Lymphocytes % 40.7 %; Mean Corpuscular HGB Conc 31.5 g/dL (31.6-35.5); Mean Corpuscular Hemoglobin 29.1 pg (28.0-33.3); Mean Corpuscular Volume 92.5 fL (83.0-100.0); Mean Platelet Volume 9.3 fL (9.4-12.4); Monocytes # 0.7 K/mcL (0.0-1.3); Monocytes % 7.5 %; Neutrophils # 4.2 K/mcL (1.6-8.9); Platelet Count 182 K/mcL (140-400); Red Blood Count 3.47 M/mcL (3.82-4.97); Red Cell Distribution Width 14.6 % (11.5-14.5); Segmented Neutrophils % 46.1 %
[2018-01-21 07:18] LABS: Calcium 9.1 mg/dL (8.6-10.3); Potassium 4.2 mEq/L (3.5-5.1)
[2018-01-21] MEDS: Insulin LISPRO 300 UNITS/3 ML VIAL SQ SCH ×7 (07:50→21:24)
[2018-01-21] MEDS: Loratadine 10 MG TABLET PO SCH (10:15)
[2018-01-21] MEDS: *HR* Pioglitazone 45 MG TABLET PO SCH (10:15)
[2018-01-21] MEDS: Aspirin 81 MG TAB.CHEW PO SCH (10:15)
[2018-01-21] MEDS: Isosorbide MONOnitrate (24 HR) 30 MG TAB.ER.24H PO SCH (10:17)
[2018-01-21] MEDS: Topiramate 25 MG TABLET PO SCH (10:17)
[2018-01-21] MEDS: ARIPiprazole 2 MG TABLET PO SCH (10:17)
[2018-01-21] MEDS: amLODIPine 5 MG TABLET PO SCH (10:17)
[2018-01-21] MEDS: Furosemide 20 MG TABLET PO SCH ×2 (10:17→17:27)
[2018-01-21] MEDS: Venlafaxine XR (24 HR) 150 MG CAP.ER.24H PO SCH (10:17)
[2018-01-21] MEDS: Gabapentin 300 MG CAPSULE PO SCH ×2 (10:22→21:25)
--- NOTE | 2018-01-21 10:30 | Cardiology Progress Note ---
<Ihsan Thompson - Last Filed: 01/21/18 13:20> Date of Encounter: 01/21/18 Time of Encounter: 11:30 Assessment and Plan (1) Chest pain Current Visit: Yes Status: Acute Paucity of ACS symptoms. Timing after a fall. EKG was normal on presentation and troponins negative x3. Echo demonstrated LVEF of 60%, mild left ventricular diastolic dysfunction, and mild concentric LVH. Perfusion imaging and stress ECG were negative for ischemia or infarct. -- no further recommendations at present -- pt needs to follow up as outpatient withint 2-3 month timeframe (scheduled) -- cardiology service will sign off at this time Qualifiers: Chest pain type: other chest pain Qualified Code(s): R07.89 - Other chest pain; R07.8 - Other chest pain Discussion w patient/family: The assessment and plan as outlined above was discussed with the patient and/or family members who expressed understanding and agreement. All questions were answered. Thank you for involving us in the care of your patient. Please call with any questions. Subjective Principal diagnosis: Chest pain after a fall Interval history: Chest pain somewhat better. Continues to be provoked with movement and palpation. Not present at complete rest. No other ACS equivalent symptoms. Has been intermittently hypertensive, but otherwise hemodynamically stable. No new symptoms or concerns. Objective Vital Signs, Last 4 Hours Temp Pulse Resp BP Pulse Ox 01/21/18 09:00 97.4 F L 60 16 179/89 97 General: Conversant, No Apparent Distress HEENT: Atraumatic, Normocephaly, Mucus Membranes Moist Neck: No JVD, Normal carotid pulses Cardiac: Reg Rate and Rhythm, Normal S1 and S2, No Murmur Lungs: Normal Breath Sounds, No Wheeze, Rales, Rhonchi Neuro: Alert and responsive, No focal deficits noted Abdomen: Soft, Non-Tender Skin: No rashes noted on visualized skin Musculoskeletal: No Chest Wall Tenderness Extremities: No Clubbing, No Cyanosis, No Edema, Normal Pulses Other: Overall stable exam from 01/20/2018 Results 01/21/18 06:37 01/21/18 06:37 Lab Results 01/21/18 01/21/18 06:37 06:37 WBC 9.2 D Hgb 10.1 L Hct 32.1 L Plt Count 182 Sodium 136 Potassium 4.2 Chloride 109 H Carbon Dioxide 20 L BUN 39 H Creatinine 2.09 H Glucose 49 L Calcium 9.1 - VTE Documentation of Mechanical Device: Venous foot pump, device Consult Discharge Plan - Plan Referrals: Demarco Trevizo MD [Primary Care Provider] - <Aisha Holly - Last Filed: 01/21/18 15:21> Date of Encounter: 01/21/18 Assessment and Plan (1) Chest pain Current Visit: Yes Status: Acute I examined this patient and my medical decision-making was reviewed with the Resident Physician. I agree with the documented findings, disposition and treatment plan as described except to the extent set forth below. Negative stress test in setting of negative CE's and atypical reproducible chest pain on palpation F/U as an OP Qualifiers: Qualified Code(s): R07.89 - Other chest pain; R07.8 - Other chest pain Discussion w patient/family: The assessment and plan as outlined above was discussed with the patient and/or family members who expressed understanding and agreement. All questions were answered. Thank you for involving us in the care of your patient. Please call with any questions. Objective Vital Signs, Last 4 Hours Temp Pulse Resp BP Pulse Ox 01/21/18 15:12 98.7 F 62 16 136/65 96 01/21/18 11:47 98.2 F 65 16 163/67 98 Results 01/21/18 06:37 01/21/18 06:37 Lab Results 01/21/18 01/21/18 06:37 06:37 WBC 9.2 D Hgb 10.1 L Hct 32.1 L Plt Count 182 Sodium 136 Potassium 4.2 Chloride 109 H Carbon Dioxide 20 L BUN 39 H Creatinine 2.09 H Glucose 49 L Calcium 9.1
[2018-01-21] MEDS ORDERED: amLODIPine 5 MG TABLET PO ONE (15:14)
--- NOTE | 2018-01-21 15:15 | Internal Med Progress Note ---
Date of Encounter: 01/21/18 Time of Encounter: 15:12 - Assessment and plan (1) Fall with injury Current Visit: Yes Status: Acute Assessment and plan: Multiple xrays completed, no fractures seen. Head CT showed no acute abnormality. Etiology unknown at this time. Cardiac source ruled out with negative workup. Brain MRI, ortho BPs pending Qualifiers: Encounter type: initial encounter Qualified Code(s): W19.XXXA - Unspecified fall, initial encounter (2) Syncope Current Visit: No Status: Acute Assessment and plan: see above Qualifiers: Syncope type: unspecified Qualified Code(s): R55 - Syncope and collapse (3) CKD (chronic kidney disease) stage 3, GFR 30-59 ml/min Current Visit: No Status: Chronic Assessment and plan: renal function at baseline compared to prior labs. Avoid nephrotoxins. Renally dose medications. Decrease gabapentin to 300 mg BID. (4) Diabetes mellitus Current Visit: No Status: Chronic Assessment and plan: per hx. Cont home long acting. SSI. Monitor blood sugar Qualifiers: Diabetes mellitus type: type 2 Diabetes mellitus intermediate teacher insulin use: with [facility] use Diabetes mellitus complication status: with kidney complications Diabetes mellitus complication detail: with chronic kidney disease Chronic kidney disease stage: stage 3 (moderate) Qualified Code(s): E11.22 - Type 2 diabetes mellitus with diabetic chronic kidney disease; N18.3 - Chronic kidney disease, stage 3 (moderate); Z79.4 - halfway (current) use of insulin (5) Chest pain Current Visit: Yes Status: Acute Assessment and plan: Serial troponin negative. TTE with EF 60%, mild diastolic dysfunction. Stress test negative. Chest pain now resolved; possibly secondary to fall. Follow-up with cardiology outpatient. Qualifiers: Chest pain type: other chest pain Qualified Code(s): R07.89 - Other chest pain; R07.8 - Other chest pain (6) Hypertension Current Visit: Yes Status: Acute Assessment and plan: per hx. BP elevated. Amlodipine increased Qualifiers: Hypertension type: essential hypertension Qualified Code(s): I10 - Essential (primary) hypertension (7) DVT prophylaxis Current Visit: No Status: Acute Assessment and plan: heparin - Time Spent With Patient Total time spent is greater than 50% in coordination of care (as documented) at patient's floor/unit and/or counseling patient: - Subjective Interval history: Seen and examined at bedside. Patient is new to me, information obtained from chart review and patient report In bed eating lunch. Says she feels okay. She is alert to self and place only and unable to provide details. Tells me she was in bed when she fell. No family at bedside for collateral. - Constitutional Vitals: Temp Pulse Resp BP Pulse Ox 98.2 F 65 16 163/67 98 01/21/18 11:47 01/21/18 11:47 01/21/18 11:47 01/21/18 11:47 01/21/18 11:47 General appearance: Present: A&O X 2, morbidly obese, pleasant, no acute distress - Head Head exam: Present: atraumatic, normocephalic - Eye Eye exam: Present: PERRL, conjuntiva pink, sclera anicteric Pupils: Present: PERRL - Neck Neck exam general surgery: Present: supple, trachea midline. Absent: lymphadenopathy - Respiratory Respiratory exam: Present: CTAB. Absent: accessory muscle use, rales, rhonchi, wheezes - Cardiovascular Cardiovascular exam: Present: RRR, +S1, +S2. Absent: diastolic murmur, gallop, rubs, systolic murmur - GI/Abdominal GI/Abdominal exam: Present: normal bowel sounds, soft, no peritoneal signs. Absent: distended, tenderness - Extremities Exam Extremities exam: Present: warm, radial pulses palpable and symmetrical. Absent : calf tenderness, cyanotic, pedal edema - Neurological Exam Neurological exam: Present: CN II-XII intact, no focal deficits. Absent: pronater drift, facial droop, speech deficit - Skin Skin exam: Present: dry, intact Internal Medicine: Result - Labs CBC & Chem 7: 01/21/18 06:37 01/21/18 06:37 Labs: Short CBC 01/21/18 Range/Units 06:37 WBC 9.2 D (4.3-11.1) K/mcL Hgb 10.1 L (11.5-15.4) g/dL Hct 32.1 L (35.3-44.9) % Plt Count 182 (140-400) K/mcL Neutrophils # 4.2 (1.6-8.9) K/mcL BMP 01/21/18 06:37 Sodium 136 Potassium 4.2 Chloride 109 H Carbon Dioxide 20 L BUN 39 H Creatinine 2.09 H Glucose 49 L Calcium 9.1 - ABG Interpretation ABG results: PT/INR, D-dimer PT 11.3 Seconds (9.4-12.1) 01/19/18 09:11 - VTE Documentation of Mechanical Device: Venous foot pump, device Consult Discharge Plan - Plan Referrals: Demarco Trevizo MD [Primary Care Provider] -
[2018-01-21] MEDS: 0.9 % Sodium Chloride 1,000 ML IVC SCH (17:40)
[2018-01-21] MEDS: Insulin DETEMIR 100 UNIT/ML X5UNITS SQ SCH (21:24)
[2018-01-21] MEDS: *HR* Heparin 5,000 UNIT/ML VIAL SQ SCH (21:25)
[2018-01-22] MEDS: *HR* Heparin 5,000 UNIT/ML VIAL SQ SCH ×3 (05:53→20:46)
[2018-01-22 06:09] LABS: Basophils % 0.3 %; Eosinophils # 0.3 K/mcL (0.0-0.6); Eosinophils % 5.7 %; Hematocrit 28.7 % (35.3-44.9); Hemoglobin 9.3 g/dL (11.5-15.4); Immature Granulocytes % 0.3 % (0-4); Lymphocytes % 32.5 %; Mean Corpuscular HGB Conc 32.4 g/dL (31.6-35.5); Mean Corpuscular Hemoglobin 30.4 pg (28.0-33.3); Mean Corpuscular Volume 93.8 fL (83.0-100.0); Mean Platelet Volume 9.8 fL (9.4-12.4); Monocytes # 0.5 K/mcL (0.0-1.3); Neutrophils # 3.2 K/mcL (1.6-8.9); Platelet Count 144 K/mcL (140-400); Red Blood Count 3.06 M/mcL (3.82-4.97); Red Cell Distribution Width 14.5 % (11.5-14.5); Segmented Neutrophils % 53.2 %
[2018-01-22 06:22] LABS: Calcium 8.8 mg/dL (8.6-10.3); Potassium 4.4 mEq/L (3.5-5.1)
[2018-01-22] MEDS: 0.9 % Sodium Chloride 1,000 ML IVC SCH ×3 (06:48→12:01)
[2018-01-22] MEDS: Insulin LISPRO 300 UNITS/3 ML VIAL SQ SCH ×7 (07:46→20:47)
[2018-01-22] MEDS: *HR* Pioglitazone 45 MG TABLET PO SCH (10:13)
[2018-01-22] MEDS: ARIPiprazole 2 MG TABLET PO SCH (10:13)
[2018-01-22] MEDS: Isosorbide MONOnitrate (24 HR) 30 MG TAB.ER.24H PO SCH (10:13)
[2018-01-22] MEDS: *HR* HYDROcodone/Acet 5/325 mg TABLET PO PRN (10:13)
[2018-01-22] MEDS: Venlafaxine XR (24 HR) 150 MG CAP.ER.24H PO SCH (10:13)
[2018-01-22] MEDS: Gabapentin 300 MG CAPSULE PO SCH ×2 (10:14→20:46)
[2018-01-22] MEDS: Furosemide 20 MG TABLET PO SCH ×2 (10:14→17:17)
[2018-01-22] MEDS: Aspirin 81 MG TAB.CHEW PO SCH (10:14)
[2018-01-22] MEDS: Loratadine 10 MG TABLET PO SCH (10:14)
[2018-01-22] MEDS: amLODIPine 5 MG TABLET PO SCH (10:14)
[2018-01-22] MEDS: Topiramate 25 MG TABLET PO SCH (10:14)
--- NOTE | 2018-01-22 14:25 | Internal Med Progress Note ---
Date of Encounter: 01/22/18 Time of Encounter: 14:28 - Assessment and plan (1) Fall with injury Current Visit: Yes Status: Acute Assessment and plan: Multiple xrays completed, no fractures seen. Head CT showed no acute abnormality. Cardiac source ruled out with negative workup. Brain MRI negative for acute infarct. Bilateral carotid Dopplers with nonstenotic plaque. Suspect secondary to advanced age, comorbidities and polypharmacy. Ortho BPs pending. PT/OT consulted; she may need SNF placement Qualifiers: Encounter type: initial encounter Qualified Code(s): W19.XXXA - Unspecified fall, initial encounter (2) Syncope Current Visit: No Status: Acute Assessment and plan: see above Qualifiers: Syncope type: unspecified Qualified Code(s): R55 - Syncope and collapse (3) CKD (chronic kidney disease) stage 3, GFR 30-59 ml/min Current Visit: No Status: Chronic Assessment and plan: renal function at baseline compared to prior labs. Avoid nephrotoxins. Renally dose medications. Decrease gabapentin to 300 mg BID. (4) Diabetes mellitus Current Visit: No Status: Chronic Assessment and plan: per hx. Cont home long acting. SSI. 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 TTE with EF 60%, mild diastolic dysfunction. Stress test negative. Chest pain now resolved; possibly secondary to fall. Follow-up with cardiology outpatient. Qualifiers: Chest pain type: other chest pain Qualified Code(s): R07.89 - Other chest pain; R07.8 - Other chest pain (6) Hypertension Current Visit: Yes Status: Acute Assessment and plan: per hx. BP elevated. Amlodipine increased Qualifiers: Hypertension type: essential hypertension Qualified Code(s): I10 - Essential (primary) hypertension (7) DVT prophylaxis Current Visit: No Status: Acute Assessment and plan: heparin - Time Spent With Patient Total time spent is greater than 50% in coordination of care (as documented) at patient's floor/unit and/or counseling patient: - Subjective Interval history: Seen and examined at bedside; sitting up in bed eating lunch. Says she feels about the same and would like to go home if possible. Says she has not been out of bed much since being hospitalized. No further syncopal events or falls. No family at bedside for collateral. Awaiting PT/OT recommendations as she may require SNF at discharge. - Constitutional Vitals: Temp Pulse Resp BP Pulse Ox 98.3 F 65 17 161/61 95 01/22/18 10:54 01/22/18 10:54 01/22/18 10:54 01/22/18 10:54 01/22/18 10:54 General appearance: Present: A&O X 2, morbidly obese, pleasant, no acute distress - Head Head exam: Present: atraumatic, normocephalic - Eye Eye exam: Present: PERRL, conjuntiva pink, sclera anicteric Pupils: Present: PERRL - Neck Neck exam general surgery: Present: supple, trachea midline. Absent: lymphadenopathy - Respiratory Respiratory exam: Present: CTAB. Absent: accessory muscle use, rales, rhonchi, wheezes - Cardiovascular Cardiovascular exam: Present: RRR, +S1, +S2. Absent: diastolic murmur, gallop, rubs, systolic murmur - GI/Abdominal GI/Abdominal exam: Present: normal bowel sounds, soft, no peritoneal signs. Absent: distended, tenderness - Extremities Exam Extremities exam: Present: warm, radial pulses palpable and symmetrical. Absent : calf tenderness, cyanotic, pedal edema - Neurological Exam Neurological exam: Present: CN II-XII intact, oriented X3, no focal deficits. Absent: pronater drift, facial droop, speech deficit - Skin Skin exam: Present: dry, intact Internal Medicine: Result - Labs CBC & Chem 7: 01/22/18 05:35 01/22/18 05:35 Labs: Short CBC 01/22/18 Range/Units 05:35 WBC 6.0 (4.3-11.1) K/mcL Hgb 9.3 L (11.5-15.4) g/dL Hct 28.7 L (35.3-44.9) % Plt Count 144 (140-400) K/mcL Neutrophils # 3.2 (1.6-8.9) K/mcL BMP 01/22/18 05:35 Sodium 137 Potassium 4.4 Chloride 112 H Carbon Dioxide 17 L BUN 40 H Creatinine 1.98 H Glucose 113 H Calcium 8.8 - ABG Interpretation ABG results: PT/INR, D-dimer PT 11.3 Seconds (9.4-12.1) 01/19/18 09:11 - Impressions Impressions Brain MRI 01/21/18 15:13 IMPRESSION: 1. No acute infarct, intracranial hemorrhage, or significant mass effect. 2. Chronic small vessel ischemic white matter disease and cerebral volume loss. D/ / 01/21/2018 17:26:49 James Marie MD / amaris Interpreting Provider: James Marie MD - VTE Documentation of Mechanical Device: Venous foot pump, device Consult Discharge Plan - Plan Referrals: Demarco Trevizo MD [Primary Care Provider] - 01/29/18 1:40 pm
[2018-01-22] MEDS: Insulin DETEMIR 100 UNIT/ML X5UNITS SQ SCH (20:46)
[2018-01-23] MEDS: 0.9 % Sodium Chloride 1,000 ML IVC SCH (01:30)
[2018-01-23] MEDS: *HR* Heparin 5,000 UNIT/ML VIAL SQ SCH (06:23)
[2018-01-23 06:55] VITALS: BP 150/74
[2018-01-23] MEDS: Insulin LISPRO 300 UNITS/3 ML VIAL SQ SCH ×2 (07:55→10:04)
[2018-01-23] MEDS: Loratadine 10 MG TABLET PO SCH (10:11)
[2018-01-23] MEDS: Gabapentin 300 MG CAPSULE PO SCH (10:11)
[2018-01-23] MEDS: Isosorbide MONOnitrate (24 HR) 30 MG TAB.ER.24H PO SCH (10:11)
[2018-01-23] MEDS: Aspirin 81 MG TAB.CHEW PO SCH (10:11)
[2018-01-23] MEDS: Furosemide 20 MG TABLET PO SCH (10:12)
[2018-01-23] MEDS: ARIPiprazole 2 MG TABLET PO SCH (10:12)
[2018-01-23] MEDS: amLODIPine 5 MG TABLET PO SCH (10:12)
[2018-01-23] MEDS: Topiramate 25 MG TABLET PO SCH (10:12)
[2018-01-23] MEDS: *HR* Pioglitazone 45 MG TABLET PO SCH (10:12)
[2018-01-23] MEDS: Venlafaxine XR (24 HR) 150 MG CAP.ER.24H PO SCH (10:12)
--- NOTE | 2018-01-23 11:15 | Discharge Summary ---
- NOTES TO OUTPATIENT PROVIDER Notes to Outpatient Provider: Recommend follow-up within 1 week for medication review and BP recheck Date of Encounter: 01/23/18 Time of Encounter: 11:16 - Discharge Diagnosis (1) Fall with injury Priority: Primary Status: Acute Assessment and Plan: details surrounding fall unclear. Multiple xrays completed, no fractures seen. Head CT showed no acute abnormality. Cardiac source ruled out with negative stress test. Brain MRI negative for acute infarct. Bilateral carotid Dopplers with nonstenotic plaque. Suspect secondary to advanced age, comorbidities and polypharmacy. Home gabapentin decreased. Also recommend stopping Reglan, trazodone and Ambien. PT/OT consulted and recommended SNF discharge however patient declined. at bedside at time of discharge and felt patient was back to baseline. Patient has a walker and cane at home. She is agreeable to PT/OT [facility] Qualifiers: Encounter type: initial encounter Qualified Code(s): W19.XXXA - Unspecified fall, initial encounter (2) Syncope Priority: Primary Status: Acute Assessment and Plan: see above Qualifiers: Syncope type: unspecified Qualified Code(s): R55 - Syncope and collapse (3) CKD (chronic kidney disease) stage 3, GFR 30-59 ml/min Priority: Primary Status: Chronic Assessment and Plan: renal function at baseline compared to prior labs. Avoid nephrotoxins. (4) Diabetes mellitus Priority: Secondary Status: Chronic Assessment and Plan: per hx. 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 Serial troponin negative. TTE with EF 60%, mild diastolic dysfunction. Stress test negative. Chest pain now resolved; possibly secondary to fall. Follow-up with cardiology outpatient. Qualifiers: Chest pain type: other chest pain Qualified Code(s): R07.89 - Other chest pain; R07.8 - Other chest pain (6) Hypertension Priority: Primary Status: Acute Assessment and Plan: per hx. BP elevated. Amlodipine increased with improvement in BP. Recommend follow-up with PCP within one week for BP recheck Qualifiers: Hypertension type: essential hypertension Qualified Code(s): I10 - Essential (primary) hypertension (7) Extrapyramidal movement disorder Priority: Primary Status: Acute Assessment and Plan: suspected. Has been on reglan for years for what sounds like gastroparesis. Stop reglan. Outpatient neurology referral Hospital course: please see assessment and plan for Hospital course Discharge discussed with: patient (Seen and examined at bedside. Says she feels well like to go home today. Sitting up in chair at bedside. Denies lightheadedness or dizziness. at bedside and feels that patient is back to baseline and he is comfortable with her returning home. Patient is agreeable to PT/OT home health care. Discussed medication changes with patient and she verbalizes understanding.) - Time Spent with Patient Total time spent providing and/or coordinating discharge services: - Discharge Medications Prescriptions: amLODIPine [Norvasc] 10 mg PO DAILY #60 tablet Gabapentin [Neurontin] 300 mg PO BID #60 capsule Home Medications: Insulin ASPART [NovoLOG] 5 unit SQ TIDWM 07/30/15 [History] Montelukast [Singulair] 10 mg PO QPM 07/30/15 [History] Aspirin 81 mg PO DAILY #90 tab.chew 11/21/15 [Rx] ARIPiprazole [Abilify] 2 mg PO DAILY 09/08/16 [History] Albuterol Sulfate [Albuterol Inhaler] 2 puff IH Q6H PRN 09/08/16 [History] Atorvastatin [Lipitor] 40 mg PO HS 09/08/16 [History] Clopidogrel [Plavix] 75 mg PO DAILY 09/08/16 [History] Docusate [Colace] 100 mg PO BID #60 capsule 09/08/16 [Rx] Guaifenesin [Mucinex] 600 mg PO Q12H 09/08/16 [History] Insulin DETEMIR [Levemir Flextouch] 30 unit SQ HS 09/08/16 [History] Loratadine [Allergy Relief] 10 mg PO DAILY 09/08/16 [History] Metoprolol [Lopressor] 50 mg PO BID 09/08/16 [History] Sodium Bicarbonate 650 mg PO BID 09/08/16 [History] Venlafaxine HCl [Venlafaxine HCl ER] 150 mg PO DAILY 09/08/16 [History] Acetaminophen [Tylenol] 500 mg PO Q6HR PRN 01/08/17 [History] Omeprazole [PriLOSEC] 40 mg PO DAILY 01/08/17 [History] HYDROcodone/Acet 5/325 mg [[place] 5-325 mg] 0.5 tab PO Q6H PRN #10 tab 02/05/17 [ Rx] Colesevelam HCl [Welchol] 625 mg PO TIDWM 11/16/17 [History] Isosorbide MONOnitrate (24 HR) [Imdur] 30 mg PO DAILY 11/16/17 [History] Ondansetron HCl [Zofran] 4 mg SL Q8H PRN 11/16/17 [History] Furosemide [Lasix] 20 mg PO BID 01/19/18 [History] Pioglitazone HCl [Actos] 45 mg PO DAILY 01/19/18 [History] Topiramate [Topamax] 50 mg PO DAILY 01/19/18 [History] Gabapentin [Neurontin] 300 mg PO BID #60 capsule 01/23/18 [Rx] amLODIPine [Norvasc] 10 mg PO DAILY #60 tablet 01/23/18 [Rx] Allergies/Adverse Reactions: 3 Allergy/AdvReac Type Severity Reaction Status Date / Time Iodinated Contrast- Oral and Allergy Anaphylaxis Verified 02/05/17 08:30 IV Dye [Iodinated Contrast Media - IV Dye] latex Allergy Rash Verified 11/16/17 07:42 codeine AdvReac Gastrointestinal Verified 02/05/17 08:30 Upset Date of admission: 01/22/18 13:47 Primary care physician: Demarco Trevizo MD Discharging clinician: Diane Austin Anticipated date of discharge: 01/23/18 - Constitutional Vitals: Temp Pulse Resp BP Pulse Ox 98.0 F 76 14 150/74 93 01/23/18 06:43 01/23/18 06:43 01/23/18 06:43 01/23/18 06:43 01/23/18 06:43 General appearance: Present: morbidly obese, pleasant, no acute distress - Head Head exam: Present: atraumatic, normocephalic - Eye Eye exam: Present: PERRL, conjuntiva pink, sclera anicteric Pupils: Present: PERRL - Neck Neck exam general surgery: Present: supple, trachea midline. Absent: lymphadenopathy - Respiratory Respiratory exam: Present: CTAB. Absent: accessory muscle use, rales, rhonchi, wheezes - Cardiovascular Cardiovascular exam: Present: RRR, +S1, +S2. Absent: diastolic murmur, gallop, rubs, systolic murmur - GI/Abdominal GI/Abdominal exam: Present: normal bowel sounds, soft, no peritoneal signs. Absent: distended, tenderness - Extremities Exam Extremities exam: Present: warm, radial pulses palpable and symmetrical. Absent : calf tenderness, cyanotic, pedal edema - Neurological Exam Neurological exam: Present: CN II-XII intact, oriented X3, no focal deficits. Absent: pronater drift, facial droop, speech deficit - Skin Skin exam: Present: dry, intact - Patient Status Disposition: Home Health Service Condition: Good Functional capacity at discharge: uses cane/walker Overall status at discharge: patient is back to baseline - Discharge Instructions Instructions: Fall Prevention (DC), Chronic Hypertension (DC) Follow Up With: Demarco Trevizo MD [Primary Care Provider] - 01/29/18 1:40 pm Dorothy Sutherland MD [Partnered Physician] - (Please call the office for follow-up appt if you have not heard from them in 2-3 weeks ) - Diet and Activity Activity: as per physical therapy, increase activity as tolerated Diet: diabetic diet, low fat, low cholesterol, low salt diet - VTE Documentation of Mechanical Device: Venous foot pump, device
--- NOTE | 2018-01-23 11:52 | Physician Discharge Referral ---
Home Health/Hosp Referral Info Transfer to: Home Health Attending Provider: Diane Austin CNP Provider in Charge Post Discharge: PCP - Diagnosis (1) Fall with injury Status: Acute (2) Syncope Status: Acute (3) CKD (chronic kidney disease) stage 3, GFR 30-59 ml/min Status: Chronic (4) Diabetes mellitus Status: Chronic (5) Chest pain Status: Acute (6) Hypertension Status: Acute (7) Extrapyramidal movement disorder Status: Acute - Respiratory Orders None Smoking Cessation: Smoking cessation has been advised. For more information, call the [place] Tobacco Quit Line at 4-079-DUYP-NOW. - Diet/Nutrition Diet/Nutrition Orders: No Concentrated Sweets - Activity Activity Orders: Ambulate, Walker - Services Needed Following services are medically necessary services: Nursing, Home Health Aide, Physical Therapy - Transfer Medications Prescriptions: amLODIPine [Norvasc] 10 mg PO DAILY #60 tablet Gabapentin [Neurontin] 300 mg PO BID #60 capsule Home Medications: Insulin ASPART [NovoLOG] 5 unit SQ TIDWM 07/30/15 [History] Montelukast [Singulair] 10 mg PO QPM 07/30/15 [History] Aspirin 81 mg PO DAILY #90 tab.chew 11/21/15 [Rx] ARIPiprazole [Abilify] 2 mg PO DAILY 09/08/16 [History] Albuterol Sulfate [Albuterol Inhaler] 2 puff IH Q6H PRN 09/08/16 [History] Atorvastatin [Lipitor] 40 mg PO HS 09/08/16 [History] Clopidogrel [Plavix] 75 mg PO DAILY 09/08/16 [History] Docusate [Colace] 100 mg PO BID #60 capsule 09/08/16 [Rx] Guaifenesin [Mucinex] 600 mg PO Q12H 09/08/16 [History] Insulin DETEMIR [Levemir Flextouch] 30 unit SQ HS 09/08/16 [History] Loratadine [Allergy Relief] 10 mg PO DAILY 09/08/16 [History] Metoprolol [Lopressor] 50 mg PO BID 09/08/16 [History] Sodium Bicarbonate 650 mg PO BID 09/08/16 [History] Venlafaxine HCl [Venlafaxine HCl ER] 150 mg PO DAILY 09/08/16 [History] Acetaminophen [Tylenol] 500 mg PO Q6HR PRN 01/08/17 [History] Omeprazole [PriLOSEC] 40 mg PO DAILY 01/08/17 [History] HYDROcodone/Acet 5/325 mg [[place] 5-325 mg] 0.5 tab PO Q6H PRN #10 tab 02/05/17 [ Rx] Colesevelam HCl [Welchol] 625 mg PO TIDWM 11/16/17 [History] Isosorbide MONOnitrate (24 HR) [Imdur] 30 mg PO DAILY 11/16/17 [History] Ondansetron HCl [Zofran] 4 mg SL Q8H PRN 11/16/17 [History] Furosemide [Lasix] 20 mg PO BID 01/19/18 [History] Pioglitazone HCl [Actos] 45 mg PO DAILY 01/19/18 [History] Topiramate [Topamax] 50 mg PO DAILY 01/19/18 [History] Gabapentin [Neurontin] 300 mg PO BID #60 capsule 01/23/18 [Rx] amLODIPine [Norvasc] 10 mg PO DAILY #60 tablet 01/23/18 [Rx] Allergies/Adverse Reactions: 3 Allergy/AdvReac Type Severity Reaction Status Date / Time Iodinated Contrast- Oral and Allergy Anaphylaxis Verified 02/05/17 08:30 IV Dye [Iodinated Contrast Media - IV Dye] latex Allergy Rash Verified 11/16/17 07:42 codeine AdvReac Gastrointestinal Verified 02/05/17 08:30 Upset Certification: Further, I certify that my clinical findings support that this patient is homebound (i.e. absences from home require considerable and taxing effort and are for medical reasons or episcopal services or infrequently or short duration when for other reasons) because: Homebound Reason: Patient requires assistance of a person or device to safely leave home Attestation: My signature below is to certify that this patient is under my care and that I, or nurse practitioner, or a physician's driller's assistant working with me, has a face-to -face encounter with this patient.
== END 2018-01-23 12:20 | disposition home health service (06) | DRG 313 ==
LOC: EMEROO 08:19 → 2SOUTHHOLD 08:19 → 3BNU 01-20 18:35
PROVIDERS: ADMIT Family Medicine; ATTEND Family Medicine

== ENCOUNTER 2018-03-05 11:42 | Inpatient (IN) ==
--- NOTE | 2018-03-05 11:58 | Emergency Department Note ---
Disposition Clinical Impression: Confusion, Acute on chronic renal insufficiency Altered mental status Qualifiers: Altered mental status type: unspecified Qualified Code(s): R41.82 - Altered mental status, unspecified Disposition: Admitted As Inpatient Condition: Good Referrals: Demarco Trevizo MD [Primary Care Provider] - Forms: ED Satisfaction Letter Time of Disposition: 14:45 Altered Mental Status HPI - General Chief Complaint: ED Altered Mental Status Stated Complaint: Confusion Time Seen by Provider: 03/05/18 11:48 Source: patient Mode of arrival: ambulatory Limitations: no limitations Nursing Notes Reviewed: Yes Vital Signs Reviewed: Yes - History of Present Illness HPI Narrative: Patient is a 77-year-old female with past medical history of A. fib, previous CVA, hypertension, hyperlipidemia. She presents today via EMS due to confusion. She states that this morning, she had chest discomfort about 30 minutes ago. Described as sharp shooting pain in her sternum, no radiation anywhere else, lasted about a minute, did not worsen with exertion, associated shortness of breath, nausea, vomiting, fevers, abdominal pain, dysuria, hematuria. She is not currently by her family at this time, is slow to answer questions. She is unsure of her past medical history, history and appear obtain from medical charts. - Related Data Home Medications Medication Instructions Recorded Confirmed Insulin ASPART [NovoLOG] 5 unit SQ TIDWM 07/30/15 01/19/18 Montelukast [Singulair] 10 mg PO QPM 07/30/15 01/19/18 ARIPiprazole [Abilify] 2 mg PO DAILY 09/08/16 01/19/18 Albuterol Sulfate [Albuterol 2 puff IH Q6H PRN 09/08/16 01/19/18 Inhaler] Atorvastatin [Lipitor] 40 mg PO HS 09/08/16 01/19/18 Clopidogrel [Plavix] 75 mg PO DAILY 09/08/16 01/19/18 Guaifenesin [Mucinex] 600 mg PO Q12H 09/08/16 01/19/18 Insulin DETEMIR [Levemir Flextouch] 30 unit SQ HS 09/08/16 01/19/18 Loratadine [Allergy Relief] 10 mg PO DAILY 09/08/16 01/19/18 Metoprolol [Lopressor] 50 mg PO BID 09/08/16 01/19/18 Sodium Bicarbonate 650 mg PO BID 09/08/16 01/19/18 Venlafaxine HCl [Venlafaxine HCl 150 mg PO DAILY 09/08/16 01/19/18 ER] Acetaminophen [Tylenol] 500 mg PO Q6HR PRN 01/08/17 01/19/18 Omeprazole [PriLOSEC] 40 mg PO DAILY 01/08/17 01/19/18 Colesevelam HCl [Welchol] 625 mg PO TIDWM 11/16/17 01/19/18 Isosorbide MONOnitrate (24 HR) 30 mg PO DAILY 11/16/17 01/19/18 [Imdur] Ondansetron HCl [Zofran] 4 mg SL Q8H PRN 11/16/17 01/19/18 Furosemide [Lasix] 20 mg PO BID 01/19/18 01/19/18 Pioglitazone HCl [Actos] 45 mg PO DAILY 01/19/18 01/19/18 Topiramate [Topamax] 50 mg PO DAILY 01/19/18 01/19/18 Previous Rx's Medication Instructions Recorded Aspirin 81 mg PO DAILY #90 tab.chew 11/21/15 Docusate [Colace] 100 mg PO BID #60 capsule 09/08/16 HYDROcodone/Acet 5/325 mg [[place] 0.5 tab PO Q6H PRN #10 tab 02/05/17 5-325 mg] Gabapentin [Neurontin] 300 mg PO BID #60 capsule 01/23/18 amLODIPine [Norvasc] 10 mg PO DAILY #60 tablet 01/23/18 Allergies Allergy/AdvReac Type Severity Reaction Status Date / Time Iodinated Contrast- Oral and Allergy Anaphylaxis Verified 03/05/18 11:48 IV Dye [Iodinated Contrast Media - IV Dye] latex Allergy Rash Verified 03/05/18 11:48 codeine AdvReac Gastrointestinal Verified 03/05/18 11:48 Upset All systems ED: reviewed and negative except as stated. Constitutional: Denies: fever Cardiovascular: Reports: chest pain Respiratory: Denies: cough, dyspnea, wheezes Gastrointestinal: Denies: abdominal pain, nausea, vomiting, diarrhea Genitourinary: Denies: urgency, dysuria, frequency Musculoskeletal: Denies: back pain, neck pain Neurological: Reports: confusion. Denies: headache, weakness, numbness, paresthesias Past Medical History - Past Medical History Attestation: Yes The following information was validated with the patient. 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 - Social History Smoking Status: Never smoker Smokeless Tobacco Status: No Alcohol use: Reports: none Drug use: Reports: none Physical Exam - General Limitations: other (Pleasantly confused) General appearance: alert - Head Head exam: atraumatic, normocephalic, normal inspection - Eye Eye exam: Present: normal appearance, PERRL, EOMI - ENT ENT exam: normal exam, normal oropharynx, mucous membranes moist - Neck Neck exam: Present: normal inspection, full ROM, trachea midline - Chest Chest inspection: Present: normal inspection, symmetric chest wall rise - Respiratory Respiratory exam: Present: normal lung sounds bilaterally - Cardiovascular Cardiovascular exam: Present: regular rate, normal rhythm, normal heart sounds - Abdominal Exam Abdominal exam: Present: soft, Non-Tender. Absent: tenderness, distention, guarding, rebound, rigidity - Extremities Exam Extremities exam: Present: normal inspection, full ROM. Absent: tenderness, pedal edema - Neurological Exam Neurological exam: Present: alert, oriented X3, CN II-XII intact, other ( Ordered to person place and time, however, she was forgetful, seemed confused when trying to answer questions, took a while to answer.). Absent: motor sensory deficit - Expanded Neurological Exam Patient oriented to: Present: person, place, time Speech: Present: fluid speech Cranial nerves: EOM function (II, III, IV, ): Normal, facial sensation (V): Normal, facial palsy (VII): Normal, spinal accessory function (XI): Normal, tongue deviation (XII): Normal Cerebellar function: finger to nose: Normal Motor strength - LUE: 5/5 Motor strength - RUE: 5/5 Motor strength - LLE: 5/5 Motor strength - RLE: 5/5 Sensory exam upper extremity: light touch: Normal Sensory exam lower extremity: light touch: Normal Coma Scale Eye Opening: Spontaneous Coma Scale Motor Response: Obeys Commands Coma Scale Verbal Response: Oriented Coma Scale Total: 15 - Psychiatric Psychiatric exam: Present: normal mood, flat affect - Skin Skin exam: Present: warm, dry, intact, normal color Course Course Narrative: Unknown fall history, unknown blood thinners, no family present to confirm history. Will obtain head CT, EKG, CXR, basic blood work, troponin, urinalysis. 14:43 chest x-ray negative, head CT negative. Basic blood work shows acute on chronic renal failure. BUN elevated in the 70s. This could be contributing to confusion. Troponin negative. EKG shows no acute ST changes. Urinalysis negative. Patient was started on normal saline for acute on chronic renal failure. I discussed the case with the hospitalist. He has accepted for admission. Of note, is present at bedside and states that she is on multiple medications and was concerned that medication interactions could be causing altered mental status. He will go home and then come back with all medications to provide for hospitalist. Chest X-Ray 03/05/18 12:06 IMPRESSION: No acute cardiopulmonary disease. D/ / Сергей Krishnan MD / Сергей Krishnan MD Interpreting Provider: Сергей Krishnan MD Head CT 03/05/18 12:07 IMPRESSION: No acute intracranial abnormality. Mild frontal cortical atrophy and small vessel chronic ischemic changes in the white matter. D/ / Truong Rich MD / Truong Rich MD Interpreting Provider: Truong Rich MD Vital Signs O2 Sat by Pulse Oximetry 96 03/05/18 11:54 Temperature 98.4 F 03/05/18 11:56 Pulse Rate 54 03/05/18 14:30 Respiratory Rate 20 03/05/18 14:30 Blood Pressure 90/80 03/05/18 14:30 O2 Sat by Pulse Oximetry 99 03/05/18 14:30 Oxygen Delivery Oxygen Delivery Nasal Cannula Altered Mental Status - MDM Narrative Medical decision making narrative: Unknown fall history, unknown blood thinners, no family present to confirm history. Will obtain head CT, EKG, CXR, basic blood work, troponin, urinalysis. 14:43 chest x-ray negative, head CT negative. Basic blood work shows acute on chronic renal failure. BUN elevated in the 70s. This could be contributing to confusion. Troponin negative. EKG shows no acute ST changes. Urinalysis negative. Patient was started on normal saline for acute on chronic renal failure. I discussed the case with the hospitalist. He has accepted for admission. Of note, is present at bedside and states that she is on multiple medications and was concerned that medication interactions could be causing altered mental status. He will go home and then come back with all medications to provide for hospitalist. - Medical Records Medical records reviewed: Yes I reviewed the patient's medical records. - Lab Data Lab results reviewed: Yes I reviewed the patient's lab results. Result diagrams: 03/05/18 12:28 03/05/18 12:28 Lab Results 03/05/18 03/05/18 03/05/18 Range/Units 12:28 12:28 12:35 WBC 6.0 (4.3-11.1) K/mcL RBC 3.36 L (3.82-4.97) M/mcL Hgb 10.2 L (11.5-15.4) g/dL Hct 32.1 L (35.3-44.9) % MCV 95.5 (83.0-100.0) fL MCH 30.4 (28.0-33.3) pg MCHC 31.8 (31.6-35.5) g/dL RDW 15.3 H (11.5-14.5) % Plt Count 185 (140-400) K/mcL MPV 10.0 (9.4-12.4) fL Immature Gran % 0.2 (0-4) % Seg Neutrophils % 58.3 % Lymphocytes % 27.3 % Monocytes % 7.7 % Eosinophils % 5.8 % Basophils % 0.7 % Neutrophils # 3.5 (1.6-8.9) K/mcL Lymphocytes # 1.6 (0.6-4.6) K/mcL Monocytes # 0.5 (0.0-1.3) K/mcL Eosinophils # 0.4 (0.0-0.6) K/mcL Basophils # 0.0 (0.0-0.2) K/mcL Sodium 136 (136-145) mEq/L Potassium 4.9 (3.5-5.1) mEq/L Chloride 102 (98-107) mEq/L Carbon Dioxide 21 L (23-29) mEq/L BUN 73 H (8-23) mg/dL Creatinine 4.79 H (0.60-1.20) mg/dL Est GFR ( Amer) 11 L (> 60) Est GFR (Non-Af Amer) 9 L (> 60) BUN/Creatinine Ratio 15 (6-26) Glucose 70 (70-105) mg/dL Calculated Osmolality 302 H (280-300) Calcium 9.6 (8.6-10.3) mg/dL Troponin I < 0.03 (< 0.04) ng/mL Urine Color Yellow (Yellow) Urine Clarity Cloudy A (Clear) Urine pH 5.5 (5.0-8.0) pH Units Ur Specific [place] 1.016 (1.010-1.025) Urine Protein 100 H (Neg-Trace) mg/dL Urine Glucose (UA) Normal (Normal) mg/dL Urine Ketones Negative (Negative) mg/dL Urine Blood Negative (Negative) Urine Nitrite Negative (Negative) Urine Bilirubin Small H (Negative) Urine Urobilinogen Normal (Normal) mg/dL Ur Leukocyte Esterase Negative (Negative) Urine Microscopic RBC 0-3 (0-3) per hpf Urine Microscopic WBC 0-3 (0-3) per hpf Ur Squamous Epith Cells Moderate H (None-Few) per lpf Urine Bacteria Few (None-Few) per hpf Hyaline Casts None Seen (None-Few) per lpf Ur Culture Indicated? NO (NO) Ethyl Alcohol < 10 (Less than 10) mg/dL - Radiology Data Radiology results reviewed: Yes I reviewed the patient's radiology results. Chest X-Ray 03/05/18 12:06 IMPRESSION: No acute cardiopulmonary disease. D/ / Сергей Krishnan MD / Сергей Krishnan MD Interpreting Provider: Сергей Krishnan MD Head CT 03/05/18 12:07 IMPRESSION: No acute intracranial abnormality. Mild frontal cortical atrophy and small vessel chronic ischemic changes in the white matter. D/ / Truong Rich MD / Truong Rich MD Interpreting Provider: Truong Rich MD - EKG Data EKG attestation: Yes I reviewed and interpreted this EKG. EKG results narrative: 03/05/2018 at 11:4 Sinus bradycardia, rate 46, DE 151, QRS 84, QTC 420, Left axis devation. No acute ST changes. TPA Checklist - LKW: 3-4.5 hrs Add. Warnings/Precautions Patient/family understanding: The patient/family members have been counseled and understood the risk, benefit , and alternatives of treatment. S.B.A.R. - S.B.A.R. Situation: Demographics, MOA Background: Presenting Complaint, Relevant PMH, Meds, & Allergies Assessment: Vital Signs, Course and respsone to treatment, Exam Concerns, Patient/Family Expectation, Pertinant Lab Results Recommendation: Barrier(s) to disposition, Recommendation based on pending studies, treatments, or consults S.B.A.R. Report Given to: Dr. Nick
[2018-03-05 12:39] LABS: Basophils % 0.7 %; Eosinophils # 0.4 K/mcL (0.0-0.6); Eosinophils % 5.8 %; Hematocrit 32.1 % (35.3-44.9); Hemoglobin 10.2 g/dL (11.5-15.4); Immature Granulocytes % 0.2 % (0-4); Lymphocytes # 1.6 K/mcL (0.6-4.6); Lymphocytes % 27.3 %; Mean Corpuscular HGB Conc 31.8 g/dL (31.6-35.5); Mean Corpuscular Hemoglobin 30.4 pg (28.0-33.3); Mean Corpuscular Volume 95.5 fL (83.0-100.0); Monocytes # 0.5 K/mcL (0.0-1.3); Monocytes % 7.7 %; Neutrophils # 3.5 K/mcL (1.6-8.9); Platelet Count 185 K/mcL (140-400); Red Blood Count 3.36 M/mcL (3.82-4.97); Red Cell Distribution Width 15.3 % (11.5-14.5); Segmented Neutrophils % 58.3 %
--- NOTE | 2018-03-05 12:43 | Emergency Department Note ---
Disposition Clinical Impression: Confusion, Acute on chronic renal insufficiency Altered mental status Qualifiers: Altered mental status type: unspecified Qualified Code(s): R41.82 - Altered mental status, unspecified Disposition: Admitted As Inpatient Condition: Good General Adult HPI - General Chief complaint: ED Altered Mental Status Stated complaint: Confusion Time Seen by Provider: 03/05/18 11:48 Source: patient Mode of arrival: ambulatory Limitations: other (Pleasantly confused) - History of Present Illness Pain Scale: 9 - Related Data Home Medications Medication Instructions Recorded Confirmed Montelukast [Singulair] 10 mg PO QPM 07/30/15 03/05/18 ARIPiprazole [Abilify] 2 mg PO DAILY 09/08/16 03/05/18 Albuterol Sulfate [Albuterol 2 puff IH Q6H PRN 09/08/16 03/05/18 Inhaler] Atorvastatin [Lipitor] 40 mg PO HS 09/08/16 03/05/18 Clopidogrel [Plavix] 75 mg PO DAILY 09/08/16 03/05/18 Guaifenesin [Mucinex] 600 mg PO Q12H 09/08/16 03/05/18 Loratadine [Allergy Relief] 10 mg PO DAILY 09/08/16 03/05/18 Metoprolol [Lopressor] 50 mg PO BID 09/08/16 03/05/18 Sodium Bicarbonate 650 mg PO BID 09/08/16 03/05/18 Venlafaxine HCl [Venlafaxine HCl 150 mg PO DAILY 09/08/16 03/05/18 ER] Acetaminophen [Tylenol] 500 mg PO Q6HR PRN 01/08/17 03/05/18 Omeprazole [PriLOSEC] 40 mg PO DAILY 01/08/17 03/05/18 Colesevelam HCl [Welchol] 625 mg PO TIDWM 11/16/17 03/05/18 Isosorbide MONOnitrate (24 HR) 30 mg PO DAILY 11/16/17 03/05/18 [Imdur] Ondansetron HCl [Zofran] 4 mg SL Q8H PRN 11/16/17 03/05/18 Furosemide [Lasix] 20 mg PO BID 01/19/18 03/05/18 Pioglitazone HCl [Actos] 45 mg PO DAILY 01/19/18 03/05/18 Topiramate [Topamax] 50 mg PO DAILY 01/19/18 03/05/18 Amantadine HCl [Amantadine] 100 mg PO BID 03/05/18 03/05/18 Insulin Glargine,Hum.rec.anlog 30 units SQ HS 03/05/18 03/05/18 [Lantus Solostar] Insulin LISPRO [Humalog] 5 unit SQ TIDWM 03/05/18 03/05/18 Previous Rx's Medication Instructions Recorded Aspirin 81 mg PO DAILY #90 tab.chew 11/21/15 Docusate [Colace] 100 mg PO BID #60 capsule 09/08/16 HYDROcodone/Acet 5/325 mg [[place] 0.5 tab PO Q6H PRN #10 tab 02/05/17 5-325 mg] Gabapentin [Neurontin] 300 mg PO BID #60 capsule 01/23/18 amLODIPine [Norvasc] 10 mg PO DAILY #60 tablet 01/23/18 Allergies Allergy/AdvReac Type Severity Reaction Status Date / Time Iodinated Contrast- Oral and Allergy Anaphylaxis Verified 03/05/18 11:48 IV Dye [Iodinated Contrast Media - IV Dye] latex Allergy Rash Verified 03/05/18 11:48 codeine AdvReac Gastrointestinal Verified 03/05/18 11:48 Upset Constitutional: Denies: fever Cardiovascular: Reports: chest pain Respiratory: Denies: cough, dyspnea, wheezes Gastrointestinal: Denies: abdominal pain, nausea, vomiting, diarrhea Genitourinary: Denies: urgency, dysuria, frequency Musculoskeletal: Denies: back pain, neck pain Neurological: Reports: confusion. 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 - Social History Smoking Status: Never smoker Smokeless Tobacco Status: No Alcohol use: Reports: none Drug use: Reports: none Physical Exam - General Limitations: other (Pleasantly confused) General appearance: alert Course Vital Signs O2 Sat by Pulse Oximetry 96 03/05/18 11:54 Temperature 98.4 F 03/05/18 11:56 Pulse Rate 54 03/05/18 14:30 Respiratory Rate 20 03/05/18 14:30 Blood Pressure 90/80 03/05/18 14:30 O2 Sat by Pulse Oximetry 99 03/05/18 14:30 Oxygen Delivery Oxygen Delivery Nasal Cannula Medical Decision Making - Lab Data Result diagrams: 03/05/18 12:28 03/05/18 12:28 Lab Results 03/05/18 03/05/18 03/05/18 Range/Units 12:28 12:28 12:35 WBC 6.0 (4.3-11.1) K/mcL RBC 3.36 L (3.82-4.97) M/mcL Hgb 10.2 L (11.5-15.4) g/dL Hct 32.1 L (35.3-44.9) % MCV 95.5 (83.0-100.0) fL MCH 30.4 (28.0-33.3) pg MCHC 31.8 (31.6-35.5) g/dL RDW 15.3 H (11.5-14.5) % Plt Count 185 (140-400) K/mcL MPV 10.0 (9.4-12.4) fL Immature Gran % 0.2 (0-4) % Seg Neutrophils % 58.3 % Lymphocytes % 27.3 % Monocytes % 7.7 % Eosinophils % 5.8 % Basophils % 0.7 % Neutrophils # 3.5 (1.6-8.9) K/mcL Lymphocytes # 1.6 (0.6-4.6) K/mcL Monocytes # 0.5 (0.0-1.3) K/mcL Eosinophils # 0.4 (0.0-0.6) K/mcL Basophils # 0.0 (0.0-0.2) K/mcL Sodium 136 (136-145) mEq/L Potassium 4.9 (3.5-5.1) mEq/L Chloride 102 (98-107) mEq/L Carbon Dioxide 21 L (23-29) mEq/L BUN 73 H (8-23) mg/dL Creatinine 4.79 H (0.60-1.20) mg/dL Est GFR ( Amer) 11 L (> 60) Est GFR (Non-Af Amer) 9 L (> 60) BUN/Creatinine Ratio 15 (6-26) Glucose 70 (70-105) mg/dL Calculated Osmolality 302 H (280-300) Calcium 9.6 (8.6-10.3) mg/dL Troponin I < 0.03 (< 0.04) ng/mL Urine Color Yellow (Yellow) Urine Clarity Cloudy A (Clear) Urine pH 5.5 (5.0-8.0) pH Units Ur Specific [place] 1.016 (1.010-1.025) Urine Protein 100 H (Neg-Trace) mg/dL Urine Glucose (UA) Normal (Normal) mg/dL Urine Ketones Negative (Negative) mg/dL Urine Blood Negative (Negative) Urine Nitrite Negative (Negative) Urine Bilirubin Small H (Negative) Urine Urobilinogen Normal (Normal) mg/dL Ur Leukocyte Esterase Negative (Negative) Urine Microscopic RBC 0-3 (0-3) per hpf Urine Microscopic WBC 0-3 (0-3) per hpf Ur Squamous Epith Cells Moderate H (None-Few) per lpf Urine Bacteria Few (None-Few) per hpf Hyaline Casts None Seen (None-Few) per lpf Ur Culture Indicated? NO (NO) Ethyl Alcohol < 10 (Less than 10) mg/dL Attestation Statement - Attestation Attestation: I examined this patient and my medical decision-making was reviewed with the PRINCIPAL ARCHAEOLOGIST/PA/Advanced Practice Nurse/Resident Physician. I agree with the documented findings, disposition and treatment plan as described except to the extent set forth below. Patient presents per EMS and I did see the patient immediately upon arrival and also spoke with the paramedics and complaint is confusion however the patient states she is seeing things that are not there is sounds more like hallucinations. She does have unreliable review the review of systems in the sense that he does answer positively to pain in the head, neck, chest, abdomen and all extremities so this does seem unreliable. She is able to tell me the month and the year but this is after thinking about it for quite some time. Color is pink, she is breathing comfortably, skin is warm and dry. Test results pending [id number]
[2018-03-05 12:46] LABS: Bilirubin,Urine Small (Negative); Blood,Urine Negative (Negative); Clarity,Urine Cloudy (Clear); Color,Urine Yellow (Yellow); Glucose,Urine (UA) Normal (Normal); Ketones,Urine Negative (Negative); Leukocyte Esterase,Urine Negative (Negative); Nitrite,Urine Negative (Negative); PH,Urine 5.5 pH Units (5.0-8.0); Protein,Urine 100 mg/dL (Neg-Trace); Specific Gravity,Urine 1.016 (1.010-1.025); Urobilinogen,Urine Normal (Normal)
[2018-03-05 12:48] LABS: Bacteria,Urine Few per hpf (None-Few); Hyaline Casts,Urine None Seen per lpf (None-Few); RBC,Urine 0-3 per hpf (0-3); Squamous Epithelial Cell,Urine Moderate per lpf (None-Few); WBC,Urine 0-3 per hpf (0-3)
[2018-03-05 13:00] LABS: Troponin I < 0.03 ng/mL (< 0.04)
[2018-03-05 13:12] LABS: BUN/Creatinine Ratio 15 (6-26); Blood Urea Nitrogen 73 mg/dL (8-23); Calcium 9.6 mg/dL (8.6-10.3); Carbon Dioxide 21 mEq/L (23-29); Chloride 102 mEq/L (98-107); Ethanol < 10 mg/dL (Less than 10); Glucose 70 mg/dL (70-105); Osmolality,Calculated 302 (280-300); Potassium 4.9 mEq/L (3.5-5.1); Sodium 136 mEq/L (136-145); eGFR For Non-African Americans 9 (> 60)
[2018-03-05] MEDS ORDERED: 0.9 % Sodium Chloride 1,000 ML IVC ONE (14:16)
[2018-03-05] MEDS ORDERED: Naloxone 0.4 MG/ML INJ IVP PRN (15:27)
[2018-03-05] MEDS ORDERED: *HR* Dextrose 50 % in Water (Syg) 50 ML SYRINGE IVP PRN (15:37)
[2018-03-05] MEDS ORDERED: D5% in Water 1,000 ML IVC PRN (15:37)
[2018-03-05] MEDS ORDERED: Dextrose Gel 15 GM/37.5 ML TUBE PO PRN ×2 (15:37)
--- NOTE | 2018-03-05 15:42 | Internal Med History&Physical ---
<Nadiya Duong Madelin - Last Filed: 03/05/18 17:50> Date of Encounter: 03/05/18 Time of Encounter: 15:40 Internal Medicine - H&P: HPI Chief complaint: AMS and aute on chronic disease Admitted From: Home Plans for Post Hospital Care: Home History of present illness: Ms. Rain is a 77 year old female with hx of CKD, htn, DM, and CAD. Presents with AMS, confusion, Acute on chronic renal failure. Patient indicated that she had been having more confusion over the past several days. The patient indicated that the confusion was gotten worse over the past few weeks. Ua had 100 of protien, small bilirubin, few yeast and mod epith. cells. The wbc is 6.0. CXR was negative. CT of the head showed no acute intra-canial abnormality and mild frontal corticol atrophy and small vessel chronic ischemic changes in the white matter. The patient bp is controlled at this time, marginally hypotensive. Patient is a diabetic and blood sugar is 70, at this time. Bladder scanner showed 164 ml urinary obstruction, unlikely. Past Med Surg Social Fam HX - Past Medical History Medical history: arthritis, asthma, atrial fibrillation, CVA, diabetes, GERD, hyperlipidemia, hypertension, osteoporosis, peripheral artery disease, seizures , TIA, other Additional medical history: DIVERTICULITIS. POLYPS. CAD. DM II. CVA 1991. MULTIPLE TIA'S. DM NEUROPATHY. BRAIN ANEURYSM Psychiatric history: anxiety, depression - Past Surgical History Surgical History: other Additional surgical history: COLONOSCOPY. EGD - Social History Smoking Status: Never smoker Smokeless Tobacco Status: No Alcohol use: none Drug use: none - Family History Father Living Status: Hx Family Cardiac Disorders: Yes Brother Living Status: Hx Family Cancer: Yes (stomach) Sister Living Status: Hx Family Cardiac Disorders: Yes Mother Living Status: Hx Family Cardiac Disorders: Yes Hx Family Cancer: Yes (stomach) Internal Medicine - H&P: Meds Montelukast [Singulair] 10 mg PO QPM 07/30/15 [History] Aspirin 81 mg PO DAILY #90 tab.chew 11/21/15 [Rx] ARIPiprazole [Abilify] 2 mg PO DAILY 09/08/16 [History] Albuterol Sulfate [Albuterol Inhaler] 2 puff IH Q6H PRN 09/08/16 [History] Atorvastatin [Lipitor] 40 mg PO HS 09/08/16 [History] Clopidogrel [Plavix] 75 mg PO DAILY 09/08/16 [History] Docusate [Colace] 100 mg PO BID #60 capsule 09/08/16 [Rx] Guaifenesin [Mucinex] 600 mg PO Q12H 09/08/16 [History] Loratadine [Allergy Relief] 10 mg PO DAILY 09/08/16 [History] Metoprolol [Lopressor] 50 mg PO BID 09/08/16 [History] Sodium Bicarbonate 650 mg PO BID 09/08/16 [History] Venlafaxine HCl [Venlafaxine HCl ER] 150 mg PO DAILY 09/08/16 [History] Acetaminophen [Tylenol] 500 mg PO Q6HR PRN 01/08/17 [History] Omeprazole [PriLOSEC] 40 mg PO DAILY 01/08/17 [History] HYDROcodone/Acet 5/325 mg [[place] 5-325 mg] 0.5 tab PO Q6H PRN #10 tab 02/05/17 [ Rx] Colesevelam HCl [Welchol] 625 mg PO TIDWM 11/16/17 [History] Isosorbide MONOnitrate (24 HR) [Imdur] 30 mg PO DAILY 11/16/17 [History] Ondansetron HCl [Zofran] 4 mg SL Q8H PRN 11/16/17 [History] Furosemide [Lasix] 20 mg PO BID 01/19/18 [History] Pioglitazone HCl [Actos] 45 mg PO DAILY 01/19/18 [History] Topiramate [Topamax] 50 mg PO DAILY 01/19/18 [History] Gabapentin [Neurontin] 300 mg PO BID #60 capsule 01/23/18 [Rx] amLODIPine [Norvasc] 10 mg PO DAILY #60 tablet 01/23/18 [Rx] Amantadine HCl [Amantadine] 100 mg PO BID 03/05/18 [History] Insulin Glargine,Hum.rec.anlog [Lantus Solostar] 30 units SQ HS 03/05/18 [ History] Insulin LISPRO [Humalog] 5 unit SQ TIDWM 03/05/18 [History] 3 Allergy/AdvReac Type Severity Reaction Status Date / Time Iodinated Contrast- Oral and Allergy Anaphylaxis Verified 03/05/18 11:48 IV Dye [Iodinated Contrast Media - IV Dye] latex Allergy Rash Verified 03/05/18 11:48 codeine AdvReac Gastrointestinal Verified 03/05/18 11:48 Upset All Systems PM: A 10-system review of systems was performed and is negative for pertinent findings except as documented above in the HPI. - Constitutional Constitutional: falls, no chills, no fever(s), no night sweats - EENT Eyes: no change in vision, no discharge, no pain, no photophobia Ears: no ear discharge, no ear pain, no tinnitus Nose, mouth and throat: no dysphagia, no nasal discharge, no neck pain, no sore throat - Cardiovascular Cardiovascular ROS IM: no chest pain, no diaphoresis, no dyspnea, no lightheadedness, no palpitations, no syncope - Respiratory Respiratory: no cough, no dyspnea, no wheezing, no excessive phlegm production - Gastrointestinal Gastrointestinal: no abdominal pain, no diarrhea, no hematemesis, no hematochezia, no melena, no nausea, no vomiting - Genitourinary Genitourinary: no change in urinary stream, no dysuria, no flank pain, no hematuria - Musculoskeletal Musculoskeletal ROS IM: no numbness, no tingling - Integumentary Integumentary IM: no rash, no unusual bruising - Neurological Neurological ROS: confusion, weakness (generalized), no convulsions, no focal weakness, no numbness, no tingling, no tremor(s) - Hematologic/Lymphatic Hematologic/Lymphatic: no easy bruising - Constitutional Vitals: Temp Pulse Resp BP Pulse Ox 98.4 F 54 20 90/80 99 03/05/18 11:56 03/05/18 14:30 03/05/18 14:30 03/05/18 14:30 03/05/18 14:30 General appearance: Present: A&O X 3, answers questions appropriately - Head Head exam: Present: atraumatic, normocephalic - Eye Eye exam: Present: PERRL, conjuntiva pink, sclera anicteric Pupils: Present: PERRL - Neck Neck exam general surgery: Present: supple, trachea midline. Absent: lymphadenopathy - Respiratory Respiratory exam: Present: CTAB. Absent: accessory muscle use, rales, rhonchi, wheezes - Cardiovascular Cardiovascular exam: Present: RRR, +S1, +S2. Absent: diastolic murmur, gallop, rubs, systolic murmur - GI/Abdominal GI/Abdominal exam: Present: normal bowel sounds, soft, no peritoneal signs. Absent: distended, tenderness - Extremities Exam Extremities exam: Present: warm, radial pulses palpable and symmetrical. Absent : calf tenderness, cyanotic, pedal edema - Neurological Exam Neurological exam: Present: CN II-XII intact, oriented X3, no focal deficits. Absent: pronater drift, facial droop, speech deficit - Skin Skin exam: Present: dry, intact Internal Med - H&P Results - Labs CBC & Chem 7: 03/05/18 12:28 03/05/18 12:28 - Assessment and plan (1) Altered mental status Current Visit: Yes Status: Acute Assessment and plan: Likely due to dehydration and kidney failure. Neuro checks every shift Monitor daily labs Qualifiers: Altered mental status type: unspecified Qualified Code(s): R41.82 - Altered mental status, unspecified (2) Acute on chronic renal insufficiency Current Visit: Yes Status: Acute Assessment and plan: Patient has history of renal failure with a baseline creatinine of 2.1 Acute renal failure likely related to dehydration, IV fluids Monitor labs Avoid nephrotoxic drugs Avoid diuretics Bladder scan showed (3) Diabetes Current Visit: No Status: Acute Assessment and plan: Blood controlled and 70 Accu-Cheks before meals and at bedtime Last A1C was 8.5 in January 2018 Monitor daily labs in 01/2018 Qualifiers: Diabetes mellitus type: type 2 Diabetes mellitus terminal system operator insulin use: with terminal system operator use Diabetes mellitus complication status: with kidney complications Diabetes mellitus complication detail: with chronic kidney disease Chronic kidney disease stage: stage 4 (severe) Qualified Code(s): E11.22 - Type 2 diabetes mellitus with diabetic chronic kidney disease; N18.4 - Chronic kidney disease, stage 4 (severe); Z79.4 - long term care social worker (current) use of insulin (4) Hypotension Current Visit: Yes Status: Chronic Assessment and plan: Bp is marginally low at this time. Could be secondary to medications or dehydration. Of note the patient hr is also bradycardic at 46. Cont' IVF's Review medication list, when available Qualifiers: Hypotension type: unspecified hypotension type Qualified Code(s): I95.9 - Hypotension, unspecified - Time Spent With Patient Total time spent is greater than 50% in coordination of care (as documented) at patient's floor/unit and/or counseling patient: <Luis Nick S - Last Filed: 03/05/18 18:02> Date of Encounter: 03/05/18 Internal Medicine - H&P: HPI History of present illness: Ms. Rain is a 77 year old female All Systems PM: A 10-system review of systems was performed and is negative for pertinent findings except as documented above in the HPI. - Constitutional Vitals: Temp Pulse Resp BP Pulse Ox 97.7 F 57 19 103/51 95 03/05/18 15:56 03/05/18 15:56 03/05/18 15:56 03/05/18 15:56 03/05/18 15:56 Internal Med - H&P Results - Labs CBC & Chem 7: 03/05/18 12:28 03/05/18 12:28 - Attending Attestation I have seen and examined the patient with Nadiya Duong and agree with his/her assessment and plan. 77-year-old female with history of C daily, hypertension, diabetes presented with progressive confusion associated with poor oral intake. At the time of interview, patient was oriented to herself and place but was telling me that she is seeing people. Otherwise afebrile and hemodynamically stable. Workup revealed no foci of infection or intracranial processes but did show acute on chronic kidney failure. We will hydrate her overnight and monitor creatinine, if it does not improve, consider nephrology consult. Luis Nick MD - Time Spent With Patient Total time spent is greater than 50% in coordination of care (as documented) at patient's floor/unit and/or counseling patient:
[2018-03-05] MEDS ORDERED: Ondansetron ODT 4 MG TAB.RAPDIS SL PRN (16:21)
[2018-03-05] MEDS: 0.9 % Sodium Chloride 1,000 ML IVC SCH (18:55)
[2018-03-05] MEDS: Insulin LISPRO 300 UNITS/3 ML VIAL SQ SCH (18:56)
[2018-03-05] MEDS: Gabapentin 300 MG CAPSULE PO SCH (21:16)
[2018-03-06] MEDS: 0.9 % Sodium Chloride 1,000 ML IVC SCH ×2 (06:34→09:14)
[2018-03-06] MEDS: Isosorbide MONOnitrate (24 HR) 30 MG TAB.ER.24H PO SCH (09:04)
[2018-03-06] MEDS: Aspirin 81 MG TAB.CHEW PO SCH (09:04)
[2018-03-06] MEDS: Loratadine 10 MG TABLET PO SCH (09:06)
[2018-03-06] MEDS: Gabapentin 300 MG CAPSULE PO SCH ×2 (09:07→20:58)
[2018-03-06] MEDS: ARIPiprazole 2 MG TABLET PO SCH (09:07)
[2018-03-06] MEDS: Insulin LISPRO 300 UNITS/3 ML VIAL SQ SCH ×3 (09:07→17:17)
[2018-03-06] MEDS: Venlafaxine XR (24 HR) 150 MG CAP.ER.24H PO SCH (09:07)
[2018-03-06] MEDS: Topiramate 25 MG TABLET PO SCH (09:07)
--- NOTE | 2018-03-06 10:45 | Internal Med Progress Note ---
Date of Encounter: 03/06/18 Time of Encounter: 08:45 - Assessment and plan (1) Acute kidney injury superimposed on chronic kidney disease Current Visit: Yes Status: Acute Assessment and plan: Awaiting labs from today. Patient feels better overall. We will continue to monitor renal function. Monitor urine output. Follow basic panel results. Patient also complains of dysuria. Will repeat urinalysis and send for culture if indications met. (2) Acute metabolic encephalopathy Current Visit: Yes Status: Acute Assessment and plan: Likely due to dehydration. Improving today. Patient is better oriented. (3) Diabetes Current Visit: Yes Status: Chronic Assessment and plan: Well-controlled. Patient did have an episode of hypoglycemia yesterday. Will decrease insulin regimen and change her atenolol correctional sliding scale only. Qualifiers: Diabetes mellitus type: type 2 Diabetes mellitus intermediate card tender insulin use: with assisted use Diabetes mellitus complication status: with kidney complications Diabetes mellitus complication detail: with chronic kidney disease Chronic kidney disease stage: stage 4 (severe) Qualified Code(s): E11.22 - Type 2 diabetes mellitus with diabetic chronic kidney disease; N18.4 - Chronic kidney disease, stage 4 (severe); Z79.4 - superintendent container terminal (current) use of insulin (4) Hypotension Current Visit: Yes Status: Resolved Assessment and plan: Likely from dehydration. Blood pressure has now improved. Qualifiers: Hypotension type: unspecified hypotension type Qualified Code(s): I95.9 - Hypotension, unspecified - Time Spent With Patient Total time spent is greater than 50% in coordination of care (as documented) at patient's floor/unit and/or counseling patient: - Subjective Interval history: Patient feels better today. She is better oriented. She does complain of pain while passing urine. She denies any chest pain or palpitations. No cough or shortness of breath at this time. - Constitutional Vitals: Temp Pulse Resp BP Pulse Ox 98.4 F 61 17 135/55 97 03/06/18 07:21 03/06/18 07:21 03/06/18 07:21 03/06/18 07:21 03/06/18 07:21 General appearance: Present: A&O X 2, pleasant, answers questions appropriately - Respiratory Respiratory exam: Present: CTAB. Absent: accessory muscle use, rales, rhonchi, wheezes - Cardiovascular Cardiovascular exam: Present: RRR, +S1, +S2. Absent: diastolic murmur, gallop, rubs, systolic murmur - GI/Abdominal GI/Abdominal exam: Present: normal bowel sounds, soft, no peritoneal signs. Absent: distended, tenderness - Extremities Exam Extremities exam: Present: warm, radial pulses palpable and symmetrical. Absent : calf tenderness, cyanotic, pedal edema - Neurological Exam Neurological exam: Present: alert, no focal deficits, strengths equal and symetr throughout. Absent: facial droop, speech deficit - Skin Skin exam: Present: dry, intact Internal Medicine: Result - Labs CBC & Chem 7: 03/05/18 12:28 03/05/18 12:28 Consult Discharge Plan - Plan Referrals: Demarco Trevizo MD [Primary Care Provider] -
[2018-03-06 11:08] LABS: Basophils % 0.6 %; Eosinophils # 0.3 K/mcL (0.0-0.6); Eosinophils % 6.6 %; Hematocrit 29.1 % (35.3-44.9); Hemoglobin 9.1 g/dL (11.5-15.4); Immature Granulocytes % 0.2 % (0-4); Lymphocytes # 1.4 K/mcL (0.6-4.6); Lymphocytes % 27.1 %; Mean Corpuscular HGB Conc 31.3 g/dL (31.6-35.5); Mean Corpuscular Hemoglobin 30.3 pg (28.0-33.3); Mean Platelet Volume 9.8 fL (9.4-12.4); Monocytes # 0.4 K/mcL (0.0-1.3); Neutrophils # 2.9 K/mcL (1.6-8.9); Platelet Count 137 K/mcL (140-400); Red Cell Distribution Width 15.2 % (11.5-14.5); Segmented Neutrophils % 58.5 %
[2018-03-06 11:28] LABS: Calcium 9.2 mg/dL (8.6-10.3); Potassium 4.6 mEq/L (3.5-5.1)
[2018-03-06] MEDS ORDERED: ALPRAZolam 0.25 MG TABLET PO ONE (22:00)
[2018-03-07] MEDS ORDERED: OLANZapine 10 MG VIAL IM STA (01:10)
[2018-03-07] MEDS: 0.9 % Sodium Chloride 1,000 ML IVC SCH (01:44)
[2018-03-07 02:10] LABS: Bilirubin,Urine Negative (Negative); Blood,Urine Negative (Negative); Clarity,Urine Clear (Clear); Color,Urine Yellow (Yellow); Glucose,Urine (UA) Normal (Normal); Ketones,Urine Negative (Negative); Leukocyte Esterase,Urine Negative (Negative); Nitrite,Urine Negative (Negative); Protein,Urine 100 mg/dL (Neg-Trace); Specific Gravity,Urine 1.009 (1.010-1.025); Urobilinogen,Urine Normal (Normal)
[2018-03-07 02:12] LABS: Bacteria,Urine None Seen per hpf (None-Few); Hyaline Casts,Urine None Seen per lpf (None-Few); RBC,Urine 0-3 per hpf (0-3); Squamous Epithelial Cell,Urine Many per lpf (None-Few); WBC,Urine 0-3 per hpf (0-3)
[2018-03-07 06:22] LABS: Basophils % 0.4 %; Eosinophils # 0.1 K/mcL (0.0-0.6); Eosinophils % 1.8 %; Hematocrit 27.2 % (35.3-44.9); Hemoglobin 8.5 g/dL (11.5-15.4); Immature Granulocytes % 0.2 % (0-4); Lymphocytes # 0.9 K/mcL (0.6-4.6); Lymphocytes % 18.8 %; Mean Corpuscular HGB Conc 31.3 g/dL (31.6-35.5); Mean Corpuscular Volume 96.1 fL (83.0-100.0); Mean Platelet Volume 9.9 fL (9.4-12.4); Monocytes # 0.3 K/mcL (0.0-1.3); Monocytes % 6.4 %; Neutrophils # 3.3 K/mcL (1.6-8.9); Platelet Count 136 K/mcL (140-400); Red Blood Count 2.83 M/mcL (3.82-4.97); Red Cell Distribution Width 15.1 % (11.5-14.5); Segmented Neutrophils % 72.4 %
[2018-03-07 06:40] LABS: Calcium 9.3 mg/dL (8.6-10.3); Potassium 4.8 mEq/L (3.5-5.1)
[2018-03-07] MEDS: ARIPiprazole 2 MG TABLET PO SCH (10:42)
[2018-03-07] MEDS: Topiramate 25 MG TABLET PO SCH (10:42)
[2018-03-07] MEDS: Gabapentin 300 MG CAPSULE PO SCH ×2 (10:43→20:15)
[2018-03-07] MEDS: Aspirin 81 MG TAB.CHEW PO SCH (10:43)
[2018-03-07] MEDS: Venlafaxine XR (24 HR) 150 MG CAP.ER.24H PO SCH (10:43)
[2018-03-07] MEDS: Isosorbide MONOnitrate (24 HR) 30 MG TAB.ER.24H PO SCH (10:43)
[2018-03-07] MEDS: Loratadine 10 MG TABLET PO SCH (10:43)
[2018-03-07] MEDS: Insulin LISPRO 300 UNITS/3 ML VIAL SQ SCH ×2 (14:12→16:26)
--- NOTE | 2018-03-07 14:12 | Internal Med Progress Note ---
Date of Encounter: 03/07/18 Time of Encounter: 14:11 - Assessment and plan (1) Acute kidney injury superimposed on chronic kidney disease Current Visit: Yes Status: Acute Assessment and plan: Improving. Creatinine is 2.94. Continue IV hydration. (2) Acute metabolic encephalopathy Current Visit: Yes Status: Acute Assessment and plan: Patient having episodes of delirium with hallucinations. Will place her on risperidone at bedtime. Most likely sundowning related to underlying dementia and unfamiliar surroundings along with underlying dehydration/acute kidney injury. One-to-one sitter. Fall precautions. (3) Diabetes Current Visit: Yes Status: Chronic Assessment and plan: Blood sugars are well controlled. Continue diabetic diet and sliding scale insulin regimen. Qualifiers: Diabetes mellitus type: type 2 Diabetes mellitus half-way insulin use: with half-way use Diabetes mellitus complication status: with kidney complications Diabetes mellitus complication detail: with chronic kidney disease Chronic kidney disease stage: stage 4 (severe) Qualified Code(s): E11.22 - Type 2 diabetes mellitus with diabetic chronic kidney disease; N18.4 - Chronic kidney disease, stage 4 (severe); Z79.4 - tour guide (current) use of insulin (4) Hypotension Current Visit: Yes Status: Resolved Qualifiers: Hypotension type: unspecified hypotension type Qualified Code(s): I95.9 - Hypotension, unspecified (5) Hypertension Current Visit: Yes Status: Acute Assessment and plan: Blood pressure is now elevated. We will resume home medications including amlodipine and metoprolol. Qualifiers: Hypertension type: essential hypertension Qualified Code(s): I10 - Essential (primary) hypertension - Time Spent With Patient Total time spent is greater than 50% in coordination of care (as documented) at patient's floor/unit and/or counseling patient: - Subjective Interval history: Evaluated patient earlier today. She reports having hallucinations and has been delirious this morning. She was unable to sleep well last night. She did receive Zyprexa and Ativan with no improvement in her symptoms. - Constitutional Vitals: Temp Pulse Resp BP Pulse Ox 99.2 F 89 18 130/71 91 03/07/18 11:44 03/07/18 11:44 03/07/18 11:44 03/07/18 11:44 03/07/18 11:44 General appearance: Present: cooperative, A&O X 1, pleasant, answers questions appropriately - Neck Neck exam general surgery: Present: supple, trachea midline. Absent: lymphadenopathy - Respiratory Respiratory exam: Present: CTAB. Absent: accessory muscle use, rales, rhonchi, wheezes - Cardiovascular Cardiovascular exam: Present: RRR, +S1, +S2. Absent: diastolic murmur, gallop, rubs, systolic murmur - GI/Abdominal GI/Abdominal exam: Present: normal bowel sounds, soft, no peritoneal signs. Absent: distended, tenderness - Neurological Exam Neurological exam: Present: altered, no focal deficits, strengths equal and symetr throughout. Absent: facial droop, speech deficit - Psychiatric Additional comments: Patient is disoriented and having hallucinations - Skin Skin exam: Present: dry, intact Internal Medicine: Result - Labs CBC & Chem 7: 03/07/18 05:35 03/07/18 05:35 Labs: Short CBC 03/07/18 Range/Units 05:35 WBC 4.5 (4.3-11.1) K/mcL Hgb 8.5 L (11.5-15.4) g/dL Hct 27.2 L (35.3-44.9) % Plt Count 136 L (140-400) K/mcL Neutrophils # 3.3 (1.6-8.9) K/mcL BMP 03/07/18 05:35 Sodium 137 Potassium 4.8 Chloride 111 H Carbon Dioxide 19 L BUN 48 H Creatinine 2.94 H Glucose 177 H Calcium 9.3 Urine 03/07/18 Range/Units 01:21 Urine Color Yellow (Yellow) Urine Clarity Clear (Clear) Urine pH 7.0 (5.0-8.0) pH Units Ur Specific [place] 1.009 L (1.010-1.025) Urine Protein 100 H (Neg-Trace) mg/dL Urine Glucose (UA) Normal (Normal) mg/dL Consult Discharge Plan - Plan Referrals: Demarco Trevizo MD [Primary Care Provider] -
[2018-03-07] MEDS: Nystatin POWDER 30 GM BOTTLE TP SCH ×2 (14:13→20:15)
[2018-03-07] MEDS: *HR* HYDROcodone/Acet 5/325 mg TABLET PO PRN (16:24)
[2018-03-07] MEDS: risperiDONE 0.25 MG TABLET PO SCH (20:15)
[2018-03-08] MEDS: *HR* HYDROcodone/Acet 5/325 mg TABLET PO PRN (02:52)
[2018-03-08 05:04] LABS: Basophils % 0.3 %; Eosinophils # 0.4 K/mcL (0.0-0.6); Eosinophils % 5.9 %; Hematocrit 28.8 % (35.3-44.9); Immature Granulocytes % 0.2 % (0-4); Lymphocytes # 1.6 K/mcL (0.6-4.6); Lymphocytes % 26.4 %; Mean Corpuscular HGB Conc 31.3 g/dL (31.6-35.5); Mean Corpuscular Hemoglobin 30.4 pg (28.0-33.3); Mean Corpuscular Volume 97.3 fL (83.0-100.0); Monocytes # 0.4 K/mcL (0.0-1.3); Monocytes % 6.8 %; Neutrophils # 3.7 K/mcL (1.6-8.9); Platelet Count 136 K/mcL (140-400); Red Blood Count 2.96 M/mcL (3.82-4.97); Red Cell Distribution Width 15.1 % (11.5-14.5); Segmented Neutrophils % 60.4 %
[2018-03-08 05:28] LABS: Calcium 9.7 mg/dL (8.6-10.3); Potassium 4.8 mEq/L (3.5-5.1)
[2018-03-08 05:50] LABS: Folate 17.4 ng/mL (3.0-16.0)
[2018-03-08] MEDS: ARIPiprazole 2 MG TABLET PO SCH (08:54)
[2018-03-08] MEDS: Loratadine 10 MG TABLET PO SCH (08:54)
[2018-03-08] MEDS: amLODIPine 5 MG TABLET PO SCH (08:54)
[2018-03-08] MEDS: Aspirin 81 MG TAB.CHEW PO SCH (08:54)
[2018-03-08] MEDS: Isosorbide MONOnitrate (24 HR) 30 MG TAB.ER.24H PO SCH (08:55)
[2018-03-08] MEDS: Venlafaxine XR (24 HR) 150 MG CAP.ER.24H PO SCH (08:55)
[2018-03-08] MEDS: Insulin LISPRO 300 UNITS/3 ML VIAL SQ SCH ×3 (08:55→17:13)
[2018-03-08] MEDS: Topiramate 25 MG TABLET PO SCH (08:55)
[2018-03-08] MEDS: Gabapentin 300 MG CAPSULE PO SCH ×2 (08:55→21:37)
[2018-03-08] MEDS: Nystatin POWDER 30 GM BOTTLE TP SCH ×2 (08:56→21:38)
--- NOTE | 2018-03-08 13:02 | Discharge Summary ---
- NOTES TO OUTPATIENT PROVIDER Notes to Outpatient Provider: f/u with PCP in one week Date of Encounter: 03/08/18 Time of Encounter: 10:20 - Discharge Diagnosis (1) Acute metabolic encephalopathy Priority: Primary Status: Acute (2) Acute kidney injury superimposed on chronic kidney disease Priority: Primary Status: Acute (3) Diabetes Priority: Secondary Status: Chronic Qualifiers: Diabetes mellitus type: type 2 Diabetes mellitus truck terminal manager insulin use: with truck terminal manager use Diabetes mellitus complication status: with kidney complications Diabetes mellitus complication detail: with chronic kidney disease Chronic kidney disease stage: stage 4 (severe) Qualified Code(s): E11.22 - Type 2 diabetes mellitus with diabetic chronic kidney disease; N18.4 - Chronic kidney disease, stage 4 (severe); Z79.4 - [facility] (current) use of insulin (4) Hypotension Priority: Secondary Status: Resolved Qualifiers: Hypotension type: unspecified hypotension type Qualified Code(s): I95.9 - Hypotension, unspecified (5) Hypertension Priority: Secondary Status: Acute Qualifiers: Hypertension type: essential hypertension Qualified Code(s): I10 - Essential (primary) hypertension Hospital course: Ms. Rain is a 77 year old female with hx of CKD-3 , htn, DM, Dementia and CAD presented to ER with altered mental status, confusion, Acute on chronic renal failure. Patient indicated that she had been having more confusion over the past several days. The patient indicated that the confusion was gotten worse over the past few weeks. Pt does have CASH with CKD-3 due to dehydration / poor PO intake. With IV hydration her Cr improved. Her delirium seems to be mostly due to worsening dementia which seems to be little better now. Her delirium is better with Ripseridone now. So will d/c her to ECF in stable condition today. - Time Spent with Patient Total time spent providing and/or coordinating discharge services: - Discharge Medications Prescriptions: HYDROcodone/Acet 5/325 mg [[place] 5-325 mg] 0.5 tab PO Q6H PRN 5 Days #10 tab PRN Reason: Pain Home Medications: Montelukast [Singulair] 10 mg PO QPM 07/30/15 [History] Aspirin 81 mg PO DAILY #90 tab.chew 11/21/15 [Rx] ARIPiprazole [Abilify] 2 mg PO DAILY 09/08/16 [History] Albuterol Sulfate [Albuterol Inhaler] 2 puff IH Q6H PRN 09/08/16 [History] Atorvastatin [Lipitor] 40 mg PO HS 09/08/16 [History] Clopidogrel [Plavix] 75 mg PO DAILY 09/08/16 [History] Docusate [Colace] 100 mg PO BID #60 capsule 09/08/16 [Rx] Guaifenesin [Mucinex] 600 mg PO Q12H 09/08/16 [History] Loratadine [Allergy Relief] 10 mg PO DAILY 09/08/16 [History] Metoprolol [Lopressor] 50 mg PO BID 09/08/16 [History] Sodium Bicarbonate 650 mg PO BID 09/08/16 [History] Venlafaxine HCl [Venlafaxine HCl ER] 150 mg PO DAILY 09/08/16 [History] Acetaminophen [Tylenol] 500 mg PO Q6HR PRN 01/08/17 [History] Omeprazole [PriLOSEC] 40 mg PO DAILY 01/08/17 [History] Colesevelam HCl [Welchol] 625 mg PO TIDWM 11/16/17 [History] Isosorbide MONOnitrate (24 HR) [Imdur] 30 mg PO DAILY 11/16/17 [History] Ondansetron HCl [Zofran] 4 mg SL Q8H PRN 11/16/17 [History] Furosemide [Lasix] 20 mg PO BID 01/19/18 [History] Topiramate [Topamax] 50 mg PO DAILY 01/19/18 [History] Gabapentin [Neurontin] 300 mg PO BID #60 capsule 01/23/18 [Rx] amLODIPine [Norvasc] 10 mg PO DAILY #60 tablet 01/23/18 [Rx] Amantadine HCl [Amantadine] 100 mg PO BID 03/05/18 [History] Insulin Glargine,Hum.rec.anlog [Lantus Solostar] 30 units SQ HS 03/05/18 [ History] Insulin LISPRO [Humalog] 5 unit SQ TIDWM 03/05/18 [History] HYDROcodone/Acet 5/325 mg [[place] 5-325 mg] 0.5 tab PO Q6H PRN 5 Days #10 tab [Rx] Nystatin POWDER [Nystop] 1 appl TP BID bottle 03/08/18 [Rx] risperiDONE [RisperDAL] 0.25 mg PO HS tablet 03/08/18 [Rx] Allergies/Adverse Reactions: 3 Allergy/AdvReac Type Severity Reaction Status Date / Time Iodinated Contrast- Oral and Allergy Anaphylaxis Verified 03/05/18 11:48 IV Dye [Iodinated Contrast Media - IV Dye] latex Allergy Rash Verified 03/05/18 11:48 codeine AdvReac Gastrointestinal Verified 03/05/18 11:48 Upset Date of admission: 03/06/18 15:25 Primary care physician: Demarco Trevizo MD - Constitutional Vitals: Temp Pulse Resp BP Pulse Ox 98.2 F 77 19 149/53 93 03/08/18 11:35 03/08/18 11:35 03/08/18 11:35 03/08/18 11:35 03/08/18 11:35 General appearance: Present: cooperative, A&O X 1, pleasant, answers questions appropriately - Head Head exam: Present: atraumatic, normal inspection - Neck Neck exam general surgery: Present: supple - Respiratory Respiratory exam: Present: decreased breath sounds. Absent: rales, respiratory distress, rhonchi, wheezes - Cardiovascular Cardiovascular exam: Present: RRR, +S1, +S2. Absent: tachycardia - GI/Abdominal GI/Abdominal exam: Present: normal bowel sounds, soft. Absent: rebound, rigid, tenderness - Extremities Exam Extremities exam: Absent: pedal edema, tenderness - Back Exam Back exam: Absent: CVA tenderness (L), CVA tenderness (R) - Neurological Exam Neurological exam: Present: alert, altered - Psychiatric Psychiatric exam: Present: anxious - Patient Status Disposition: Transfer SNF Condition: Good Overall status at discharge: patient is back to baseline - Discharge Instructions Follow Up With: Demarco Trevizo MD [Primary Care Provider] - - Diet and Activity Activity: as per physical therapy, increase activity as tolerated Diet: low salt diet
--- NOTE | 2018-03-08 17:57 | Electrocardiograph Report ---
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
[2018-03-08] MEDS ORDERED: Insulin LISPRO 300 UNITS/3 ML VIAL SQ SCH (21:00)
[2018-03-08] MEDS: risperiDONE 0.25 MG TABLET PO SCH (21:37)
--- NOTE | 2018-03-09 08:27 | Physician Discharge Referral ---
ExtendedCare Referral Info Transfer To: SNF Provider in Charge: Carolina Lopez Provider in Charge after Transfer: PCP Institutional Level of Care: Skilled - Diagnosis (1) Dementia Priority: Secondary Status: Chronic (2) Acute kidney injury superimposed on chronic kidney disease Priority: Primary Status: Resolved (3) Acute metabolic encephalopathy Priority: Primary Status: Resolved (4) Diabetes Priority: Secondary Status: Chronic (5) Hypertension Priority: Secondary Status: Chronic (6) Seizure disorder Priority: Secondary Status: Chronic Prognosis: Fair Aware of Diagnosis: Family Aware of Prognosis: Family - Transfer Medications Prescriptions: HYDROcodone/Acet 5/325 mg [[place] 5-325 mg] 0.5 tab PO Q6H PRN 5 Days #10 tab PRN Reason: Pain Home Medications: Montelukast [Singulair] 10 mg PO QPM 07/30/15 [History] Aspirin 81 mg PO DAILY #90 tab.chew 11/21/15 [Rx] ARIPiprazole [Abilify] 2 mg PO DAILY 09/08/16 [History] Albuterol Sulfate [Albuterol Inhaler] 2 puff IH Q6H PRN 09/08/16 [History] Atorvastatin [Lipitor] 40 mg PO HS 09/08/16 [History] Clopidogrel [Plavix] 75 mg PO DAILY 09/08/16 [History] Docusate [Colace] 100 mg PO BID #60 capsule 09/08/16 [Rx] Guaifenesin [Mucinex] 600 mg PO Q12H 09/08/16 [History] Loratadine [Allergy Relief] 10 mg PO DAILY 09/08/16 [History] Metoprolol [Lopressor] 50 mg PO BID 09/08/16 [History] Sodium Bicarbonate 650 mg PO BID 09/08/16 [History] Venlafaxine HCl [Venlafaxine HCl ER] 150 mg PO DAILY 09/08/16 [History] Acetaminophen [Tylenol] 500 mg PO Q6HR PRN 01/08/17 [History] Omeprazole [PriLOSEC] 40 mg PO DAILY 01/08/17 [History] Colesevelam HCl [Welchol] 625 mg PO TIDWM 11/16/17 [History] Isosorbide MONOnitrate (24 HR) [Imdur] 30 mg PO DAILY 11/16/17 [History] Ondansetron HCl [Zofran] 4 mg SL Q8H PRN 11/16/17 [History] Furosemide [Lasix] 20 mg PO BID 01/19/18 [History] Topiramate [Topamax] 50 mg PO DAILY 01/19/18 [History] Gabapentin [Neurontin] 300 mg PO BID #60 capsule 01/23/18 [Rx] amLODIPine [Norvasc] 10 mg PO DAILY #60 tablet 01/23/18 [Rx] Amantadine HCl [Amantadine] 100 mg PO BID 03/05/18 [History] Insulin Glargine,Hum.rec.anlog [Lantus Solostar] 30 units SQ HS 03/05/18 [ History] Insulin LISPRO [Humalog] 5 unit SQ TIDWM 03/05/18 [History] HYDROcodone/Acet 5/325 mg [[place] 5-325 mg] 0.5 tab PO Q6H PRN 5 Days #10 tab [Rx] Nystatin POWDER [Nystop] 1 appl TP BID bottle 03/08/18 [Rx] risperiDONE [RisperDAL] 0.25 mg PO HS tablet 03/08/18 [Rx] Allergies/Adverse Reactions: 3 Allergy/AdvReac Type Severity Reaction Status Date / Time Iodinated Contrast- Oral and Allergy Anaphylaxis Verified 03/05/18 11:48 IV Dye [Iodinated Contrast Media - IV Dye] latex Allergy Rash Verified 03/05/18 11:48 codeine AdvReac Gastrointestinal Verified 03/05/18 11:48 Upset - Respiratory Orders Smoking Cessation: Smoking cessation has been advised. For more information, call the [place] Tobacco Quit Line at 2-798-FJHZ-NOW. - Mobility Orders Other - Rehabiliation Orders Rehab Orders: Evaluation for Physical Therapy, Evaluation for Occupational Therapy CERTIFICATION: I certify that the transfer of the above named patient to an Extended Care Facility is necessary for the continuing treatment of the diagnosis listed. The above information is true and accurate reflection of patient's current condition. Confidential - Redisclosure prohibited without a patient's written consent.
[2018-03-09] MEDS: Aspirin 81 MG TAB.CHEW PO SCH (08:49)
[2018-03-09] MEDS: ARIPiprazole 2 MG TABLET PO SCH (08:50)
[2018-03-09] MEDS: amLODIPine 5 MG TABLET PO SCH (08:50)
[2018-03-09] MEDS: Isosorbide MONOnitrate (24 HR) 30 MG TAB.ER.24H PO SCH (08:50)
[2018-03-09] MEDS: Gabapentin 300 MG CAPSULE PO SCH (08:50)
[2018-03-09] MEDS: Venlafaxine XR (24 HR) 150 MG CAP.ER.24H PO SCH (08:50)
[2018-03-09] MEDS: Loratadine 10 MG TABLET PO SCH (08:50)
[2018-03-09] MEDS: Topiramate 25 MG TABLET PO SCH (08:50)
[2018-03-09] MEDS: Insulin LISPRO 300 UNITS/3 ML VIAL SQ SCH ×3 (08:57→16:36)
[2018-03-09] MEDS: *HR* HYDROcodone/Acet 5/325 mg TABLET PO PRN (11:26)
[2018-03-09] MEDS: Nystatin POWDER 30 GM BOTTLE TP SCH (11:28)
--- NOTE | 2018-03-09 12:19 | Internal Med Progress Note ---
Hospitalist Progress Note - Encounter Date of Encounter: 03/09/18 Time of Encounter: 12:19 - Subjective Interval History: 77-year-old female was admitted and being managed for acute encephalopathy, acute kidney injury on top of chronic kidney disease. She has a medical history of dementia She seen and evaluated at the bedside with the family members The patient is very emotional on evaluation and refusing to go to senior living facility for inpatient rehabilitation. She is otherwise clinically stable for discharge when bed is available. Family at the bedside understands the need for rehabilitation as patient has been having recurrent falls at home. At my Time of evaluation, she is alert awake and oriented 3. - Exam Vitals: Temp Pulse Resp BP Pulse Ox 98.4 F 60 18 162/61 94 03/09/18 11:26 03/09/18 11:26 03/09/18 11:26 03/09/18 11:26 03/09/18 11:26 Exam: VSS Gen: not in any form of distress Neuro: AAOX3, No focal deficits HEENT: Moist oral mucosa, anicteric, not pale, no cyanosis Chest: CTAB Heart: S1, S2 only, no m/g/r, no JVD Abdomen: Soft, not tender, no palpably enlarged organs Extremities: No edema Skin: No rash - Assessment and Plan (1) Dementia Current Visit: Yes Status: Chronic Assessment and Plan: Continue current management (2) Acute kidney injury superimposed on chronic kidney disease Current Visit: Yes Status: Resolved Assessment and Plan: Resolved Continue to encourage liberal fluid intake po Continue to monitor (3) Acute metabolic encephalopathy Current Visit: Yes Status: Resolved Assessment and Plan: Resolved AAOX3 (4) Diabetes Current Visit: Yes Status: Chronic Assessment and Plan: Blood sugars are well controlled. Continue diabetic diet and sliding scale insulin regimen. (5) Hypertension Current Visit: Yes Status: Chronic Assessment and Plan: Blood pressure is now elevated. continue current meds (6) Seizure disorder Current Visit: Yes Status: Chronic Assessment and Plan: continue home meds - Time Spent with Patient Total time spent is greater than 50% in coordination of care (as documented) at patient's floor/unit and/or counseling patient: Plan of Care Discussed with: patient Internal Medicine: Result - Labs CBC & Chem 7: 03/08/18 04:06 03/08/18 04:06 Consult Discharge Plan - Plan Instructions: Dehydration (GEN), Diabetes Mellitus Type 2 in Adults (DC) Referrals: Demarco Trevizo MD [Primary Care Provider] - Prescriptions: HYDROcodone/Acet 5/325 mg [[place] 5-325 mg] 0.5 tab PO Q6H PRN 5 Days #10 tab PRN Reason: Pain (1) Dementia Qualifiers: Dementia type: Alzheimer's disease Alzheimer's disease onset: unspecified onset Dementia behavioral disturbance: without behavioral disturbance Qualified Code(s): G30.9 - Alzheimer's disease, unspecified; F02.80 - Dementia in other diseases classified elsewhere without behavioral disturbance (4) Diabetes Qualifiers: Diabetes mellitus type: type 2 Diabetes mellitus alf insulin use: with manager multimedia use Diabetes mellitus complication status: with kidney complications Diabetes mellitus complication detail: with chronic kidney disease Chronic kidney disease stage: stage 4 (severe) Qualified Code(s): E11.22 - Type 2 diabetes mellitus with diabetic chronic kidney disease; N18.4 - Chronic kidney disease, stage 4 (severe); Z79.4 - residential (current) use of insulin (5) Hypertension Qualifiers: Hypertension type: essential hypertension Qualified Code(s): I10 - Essential (primary) hypertension
[2018-03-09 16:27] VITALS: BP 136/57
== END 2018-03-09 19:00 | DRG 682 ==
LOC: EMEROO 11:42 → 2ANU 11:42 → SUATTDRO 03-06 15:25
PROVIDERS: ADMIT Internal Medicine; ATTEND Internal Medicine

== ENCOUNTER 2019-12-20 10:41 | Observation (INO) ==
[2019-12-20] MEDS ORDERED: *HR* Dextrose 50 % in Water (Syg) 50 ML SYRINGE IVP ONE (11:00)
[2019-12-20] MEDS ORDERED: *HR* Dextrose 50 % in Water (Syg) 50 ML SYRINGE ONE (11:03)
[2019-12-20 11:08] LABS: Hematocrit 30.5 % (35.3-44.9); Hemoglobin 9.6 g/dL (11.5-15.4); Mean Corpuscular HGB Conc 31.5 g/dL (31.6-35.5); Mean Corpuscular Volume 98.4 fL (83.0-100.0); Platelet Count 245 K/mcL (140-400); Red Cell Distribution Width 13.7 % (11.5-14.5); White Blood Count 8.9 K/mcL (4.3-11.1)
[2019-12-20 11:15] LABS: Prothrombin Time 11.4 Seconds (9.4-12.1)
[2019-12-20 11:18] LABS: Activated Partial Thrombo Time 30.7 Seconds (26.0-36.0)
[2019-12-20] MEDS ORDERED: Gadolinium Contrast Agent (WT Based) IV PRN (11:19)
[2019-12-20 11:25] LABS: BUN/Creatinine Ratio 17 (6-26); Blood Urea Nitrogen 41 mg/dL (8-23); Calcium 9.2 mg/dL (8.6-10.3); Carbon Dioxide 21 mEq/L (23-29); Chloride 105 mEq/L (98-107); Glucose 46 mg/dL (70-105); Osmolality,Calculated 287 (280-300); Potassium 5.2 mEq/L (3.5-5.1); Sodium 135 mEq/L (136-145); eGFR For African Americans 23 (> 60); eGFR For Non-African Americans 19 (> 60)
[2019-12-20 11:26] LABS: Troponin I < 0.03 ng/mL (< 0.04)
[2019-12-20] MEDS ORDERED: Naloxone 0.4 MG/ML INJ IVP PRN (14:46)
[2019-12-20] MEDS ORDERED: Ondansetron ODT 4 MG TAB.RAPDIS SL PRN (14:49)
[2019-12-20] MEDS ORDERED: amLODIPine 5 MG TABLET PO SCH (15:00)
[2019-12-20] MEDS ORDERED: Aspirin 81 MG TAB.CHEW PO SCH (15:00)
[2019-12-20] MEDS ORDERED: Dextrose Gel 15 GM/37.5 ML TUBE PO PRN ×2 (15:35)
[2019-12-20] MEDS ORDERED: D5% in Water 1,000 ML IVC PRN (15:35)
[2019-12-20] MEDS ORDERED: *HR* Dextrose 50 % in Water (Syg) 50 ML SYRINGE IVP PRN (15:35)
[2019-12-20] MEDS ORDERED: Insulin LISPRO 300 UNITS/3 ML VIAL SQ SCH ×2 (16:30→21:00)
[2019-12-20] MEDS ORDERED: D5% in Lactated Ringers 1,000 ML IVC SCH (17:00)
[2019-12-20] MEDS: ARIPiprazole 2 MG TABLET PO SCH (17:01)
[2019-12-20] MEDS: Aspirin 325 MG TABLET PO SCH (17:02)
[2019-12-20] MEDS: Gabapentin 100 MG CAPSULE PO SCH (20:28)
[2019-12-21 06:20] LABS: Basophils % 0.3 %; Eosinophils # 0.3 K/mcL (0.0-0.6); Eosinophils % 5.1 %; Hematocrit 27.9 % (35.3-44.9); Immature Granulocytes % 0.3 % (0-4); Lymphocytes # 1.7 K/mcL (0.6-4.6); Lymphocytes % 29.3 %; Mean Corpuscular HGB Conc 32.3 g/dL (31.6-35.5); Mean Corpuscular Hemoglobin 31.7 pg (28.0-33.3); Mean Corpuscular Volume 98.2 fL (83.0-100.0); Mean Platelet Volume 9.2 fL (9.4-12.4); Monocytes # 0.4 K/mcL (0.0-1.3); Monocytes % 6.5 %; Neutrophils # 3.4 K/mcL (1.6-8.9); Platelet Count 208 K/mcL (140-400); Red Blood Count 2.84 M/mcL (3.82-4.97); Red Cell Distribution Width 13.6 % (11.5-14.5); Segmented Neutrophils % 58.5 %; White Blood Count 5.8 K/mcL (4.3-11.1)
[2019-12-21 06:41] LABS: Chol/HDL Ratio 4.2 (0-4.9); Phosphorous 5.3 mg/dL (2.7-4.5); Potassium 4.5 mEq/L (3.5-5.1)
[2019-12-21 07:05] LABS: Folate 15.3 ng/mL (3.0-16.0)
[2019-12-21] MEDS: ARIPiprazole 2 MG TABLET PO SCH (08:18)
[2019-12-21] MEDS: Aspirin 325 MG TABLET PO SCH (08:18)
[2019-12-21] MEDS: Gabapentin 100 MG CAPSULE PO SCH (08:18)
[2019-12-21] MEDS ORDERED: Topiramate 25 MG TABLET PO SCH (09:00)
[2019-12-21] MEDS ORDERED: Venlafaxine XR (24 HR) 75 MG CAP.ER.24H PO SCH (09:00)
[2019-12-21] MEDS ORDERED: Acetaminophen 325 MG TABLET PO PRN (11:07)
[2019-12-21 11:36] VITALS: BP 164/73
== END 2019-12-21 15:52 | disposition home health service (06) ==
LOC: 3BNU 10:41 → EMEROOARM 10:41 → SUATTDRO 14:09 → 3BNU 14:32
PROVIDERS: ADMIT Family Medicine; ATTEND Internal Medicine

== ENCOUNTER 2020-04-01 10:47 | Observation (INO) ==
[2020-04-01 11:49] LABS: Basophils % 0.4 %; Eosinophils # 0.1 K/mcL (0.0-0.6); Eosinophils % 1.4 %; Hematocrit 32.9 % (35.3-44.9); Hemoglobin 10.6 g/dL (11.5-15.4); Immature Granulocytes % 0.1 % (0-4); Lymphocytes # 1.7 K/mcL (0.6-4.6); Lymphocytes % 23.6 %; Mean Corpuscular HGB Conc 32.2 g/dL (31.6-35.5); Mean Corpuscular Hemoglobin 30.5 pg (28.0-33.3); Mean Corpuscular Volume 94.8 fL (83.0-100.0); Mean Platelet Volume 9.8 fL (9.4-12.4); Monocytes # 0.4 K/mcL (0.0-1.3); Monocytes % 5.8 %; Neutrophils # 4.9 K/mcL (1.6-8.9); Platelet Count 182 K/mcL (140-400); Red Blood Count 3.47 M/mcL (3.82-4.97); Red Cell Distribution Width 12.5 % (11.5-14.5); Segmented Neutrophils % 68.7 %; White Blood Count 7.1 K/mcL (4.3-11.1)
[2020-04-01 12:06] LABS: Bacteria,Urine Few per hpf (None-Few); Bilirubin,Urine Negative (Negative); Blood,Urine Small (Negative); Clarity,Urine Turbid (Clear); Color,Urine Yellow (Yellow); Glucose,Urine (UA) Normal (Normal); Ketones,Urine Negative (Negative); Leukocyte Esterase,Urine Large (Negative); Nitrite,Urine Negative (Negative); PH,Urine 6.5 pH Units (5.0-8.0); Protein,Urine 70 mg/dL (Neg-Trace); RBC,Urine 50-100 per hpf (0-3); Renal Epithelial Cells,Urine Few per hpf (None-Few); Squamous Epithelial Cell,Urine Few per hpf (None-Few); Urobilinogen,Urine Normal (Normal); WBC,Urine TNTC per hpf (0-3)
[2020-04-01 12:15] LABS: INR 1.1
[2020-04-01 12:18] LABS: Activated Partial Thrombo Time 34.1 Seconds (26.0-36.0)
[2020-04-01 12:26] LABS: Alanine Aminotransferase 5 Units/L (7-52); Albumin 4.2 g/dL (3.5-5.7); Albumin/Globulin Ratio 1.3 (1.1-2.2); Alkaline Phosphatase 104 Units/L (34-104); Aspartate Amino Transferase 17 Units/L (13-39); BUN/Creatinine Ratio 13 (6-26); Bilirubin,Total 0.4 mg/dL (0.3-1.0); Blood Urea Nitrogen 30 mg/dL (8-23); Calcium 8.9 mg/dL (8.6-10.3); Carbon Dioxide 18 mEq/L (23-29); Chloride 107 mEq/L (98-107); Creatine Kinase 143 Units/L (30-223); Globulin 3.3 g/dL (2.4-3.5); Glucose 93 mg/dL (70-105); Osmolality,Calculated 288 (280-300); Potassium 4.3 mEq/L (3.5-5.1); Sodium 136 mEq/L (136-145); Total Protein 7.5 g/dL (6.4-8.9); Troponin I < 0.03 ng/mL (< 0.04); eGFR For African Americans 24 (> 60); eGFR For Non-African Americans 20 (> 60)
[2020-04-01] MEDS ORDERED: cefTRIAXone 1,000 MG in Water for inj. (sterile) 10 ML IVP ONE (13:01)
[2020-04-01] MEDS ORDERED: Ondansetron 4 MG/2 ML VIAL IVP PRN (13:11)
[2020-04-01] MEDS ORDERED: Naloxone 0.4 MG/ML INJ IVP PRN (13:11)
[2020-04-01] MEDS ORDERED: Dextrose Gel 15 GM/37.5 ML TUBE PO PRN ×2 (13:44)
[2020-04-01] MEDS ORDERED: D5% in Water 1,000 ML IVC PRN (13:44)
[2020-04-01] MEDS: *HR* Dextrose 50 % in Water (Vial) 50 ML VIAL IVP PRN (16:53)
[2020-04-01] MEDS: Insulin LISPRO 300 UNITS/3 ML VIAL SQ SCH (18:12)
[2020-04-01] MEDS: Carbidopa/Levodopa ER 50/200 TABLET PO SCH ×2 (18:15→21:15)
[2020-04-01] MEDS: Gabapentin 100 MG CAPSULE PO SCH (21:15)
[2020-04-01] MEDS: Insulin DETEMIR 100 UNIT/ML X5UNITS SQ SCH (21:16)
[2020-04-02 01:26] LABS: Basophils % 0.3 %; Eosinophils # 0.2 K/mcL (0.0-0.6); Hemoglobin 9.8 g/dL (11.5-15.4); Immature Granulocytes % 0.3 % (0-4); Lymphocytes % 26.2 %; Mean Corpuscular HGB Conc 32.7 g/dL (31.6-35.5); Mean Corpuscular Hemoglobin 30.8 pg (28.0-33.3); Mean Corpuscular Volume 94.3 fL (83.0-100.0); Mean Platelet Volume 9.9 fL (9.4-12.4); Monocytes # 0.6 K/mcL (0.0-1.3); Monocytes % 8.1 %; Neutrophils # 4.8 K/mcL (1.6-8.9); Platelet Count 190 K/mcL (140-400); Red Blood Count 3.18 M/mcL (3.82-4.97); Red Cell Distribution Width 12.4 % (11.5-14.5); Segmented Neutrophils % 63.1 %; White Blood Count 7.6 K/mcL (4.3-11.1)
[2020-04-02 01:45] LABS: Calcium 8.7 mg/dL (8.6-10.3); Potassium 4.2 mEq/L (3.5-5.1)
[2020-04-02] MEDS: cefTRIAXone 1,000 MG in Water for inj. (sterile) 10 ML IVP SCH (07:45)
[2020-04-02] MEDS: amLODIPine 5 MG TABLET PO SCH (07:47)
[2020-04-02] MEDS: calcitrioL 0.25 MCG CAPSULE PO SCH (07:47)
[2020-04-02] MEDS: ARIPiprazole 2 MG TABLET PO SCH (07:47)
[2020-04-02] MEDS: Gabapentin 100 MG CAPSULE PO SCH ×2 (07:47→20:04)
[2020-04-02] MEDS: Cyanocobalamin (B-12) 1,000 MCG TABLET PO SCH (07:47)
[2020-04-02] MEDS: Aspirin 81 MG TAB.CHEW PO SCH (07:47)
[2020-04-02] MEDS: Isosorbide MONOnitrate (24 HR) 60 MG TAB.ER.24H PO SCH (07:48)
[2020-04-02] MEDS: Topiramate 25 MG TABLET PO SCH (07:48)
[2020-04-02] MEDS: Furosemide 20 MG TABLET PO SCH (07:48)
[2020-04-02] MEDS: Venlafaxine XR (24 HR) 75 MG CAP.ER.24H PO SCH (07:49)
[2020-04-02] MEDS: Carbidopa/Levodopa ER 50/200 TABLET PO SCH ×3 (07:49→20:02)
[2020-04-02] MEDS: Insulin LISPRO 300 UNITS/3 ML VIAL SQ SCH ×3 (07:49→15:58)
[2020-04-02] MEDS: *HR* Dextrose 50 % in Water (Vial) 50 ML VIAL IVP PRN (10:26)
[2020-04-02] MEDS: Insulin DETEMIR 100 UNIT/ML X5UNITS SQ SCH (20:07)
[2020-04-03 02:35] LABS: Hematocrit 33.2 % (35.3-44.9); Hemoglobin 10.6 g/dL (11.5-15.4); Mean Corpuscular HGB Conc 31.9 g/dL (31.6-35.5); Mean Corpuscular Hemoglobin 30.5 pg (28.0-33.3); Mean Corpuscular Volume 95.4 fL (83.0-100.0); Mean Platelet Volume 9.7 fL (9.4-12.4); Platelet Count 189 K/mcL (140-400); Red Blood Count 3.48 M/mcL (3.82-4.97); Red Cell Distribution Width 12.4 % (11.5-14.5); White Blood Count 7.6 K/mcL (4.3-11.1)
[2020-04-03 02:52] LABS: Calcium 9.2 mg/dL (8.6-10.3); Potassium 4.3 mEq/L (3.5-5.1)
[2020-04-03] MEDS: cefTRIAXone 1,000 MG in Water for inj. (sterile) 10 ML IVP SCH (07:31)
[2020-04-03] MEDS: Isosorbide MONOnitrate (24 HR) 60 MG TAB.ER.24H PO SCH (07:37)
[2020-04-03] MEDS: Aspirin 81 MG TAB.CHEW PO SCH (07:37)
[2020-04-03] MEDS: Topiramate 25 MG TABLET PO SCH (07:37)
[2020-04-03] MEDS: ARIPiprazole 2 MG TABLET PO SCH (07:37)
[2020-04-03] MEDS: amLODIPine 5 MG TABLET PO SCH (07:38)
[2020-04-03] MEDS: calcitrioL 0.25 MCG CAPSULE PO SCH (07:38)
[2020-04-03] MEDS: Gabapentin 100 MG CAPSULE PO SCH ×2 (07:38→21:59)
[2020-04-03] MEDS: Cyanocobalamin (B-12) 1,000 MCG TABLET PO SCH (07:39)
[2020-04-03] MEDS: Carbidopa/Levodopa ER 50/200 TABLET PO SCH ×3 (07:40→21:58)
[2020-04-03] MEDS: Venlafaxine XR (24 HR) 75 MG CAP.ER.24H PO SCH (07:40)
[2020-04-03] MEDS: Furosemide 20 MG TABLET PO SCH (07:40)
[2020-04-03] MEDS: Insulin LISPRO 300 UNITS/3 ML VIAL SQ SCH ×3 (07:56→16:27)
[2020-04-03] MEDS: Insulin DETEMIR 100 UNIT/ML X5UNITS SQ SCH (21:59)
[2020-04-04 04:26] LABS: Hematocrit 30.9 % (35.3-44.9); Hemoglobin 9.8 g/dL (11.5-15.4); Mean Corpuscular HGB Conc 31.7 g/dL (31.6-35.5); Mean Corpuscular Hemoglobin 31.2 pg (28.0-33.3); Mean Corpuscular Volume 98.4 fL (83.0-100.0); Mean Platelet Volume 9.7 fL (9.4-12.4); Platelet Count 178 K/mcL (140-400); Red Blood Count 3.14 M/mcL (3.82-4.97); Red Cell Distribution Width 12.4 % (11.5-14.5); White Blood Count 8.2 K/mcL (4.3-11.1)
[2020-04-04 04:46] LABS: Calcium 9.4 mg/dL (8.6-10.3); Potassium 4.9 mEq/L (3.5-5.1)
[2020-04-04] MEDS: Aspirin 81 MG TAB.CHEW PO SCH (08:20)
[2020-04-04] MEDS: Isosorbide MONOnitrate (24 HR) 60 MG TAB.ER.24H PO SCH (08:20)
[2020-04-04] MEDS: Venlafaxine XR (24 HR) 75 MG CAP.ER.24H PO SCH (08:20)
[2020-04-04] MEDS: Topiramate 25 MG TABLET PO SCH (08:21)
[2020-04-04] MEDS: calcitrioL 0.25 MCG CAPSULE PO SCH (08:21)
[2020-04-04] MEDS: cefTRIAXone 1,000 MG in Water for inj. (sterile) 10 ML IVP SCH (08:21)
[2020-04-04] MEDS: ARIPiprazole 2 MG TABLET PO SCH (08:21)
[2020-04-04] MEDS: Furosemide 20 MG TABLET PO SCH (08:21)
[2020-04-04] MEDS: amLODIPine 5 MG TABLET PO SCH (08:21)
[2020-04-04] MEDS: Insulin LISPRO 300 UNITS/3 ML VIAL SQ SCH ×2 (08:22→11:46)
[2020-04-04] MEDS: Cyanocobalamin (B-12) 1,000 MCG TABLET PO SCH (08:23)
[2020-04-04] MEDS: Gabapentin 100 MG CAPSULE PO SCH (08:23)
[2020-04-04] MEDS: Carbidopa/Levodopa ER 50/200 TABLET PO SCH (08:25)
[2020-04-04 10:52] VITALS: BP 132/64
== END 2020-04-04 14:07 | disposition home health service (06) ==
LOC: 3BNU 10:47 → EMEROOARM 10:47 → SUATTDRO 13:27 → 3BNU 14:13
PROVIDERS: ADMIT Internal Medicine; ATTEND Nurse Practitioner Adult Health

== ENCOUNTER 2020-08-26 15:42 | Observation (INO) ==
[2020-08-26] MEDS ORDERED: Ondansetron 4 MG/2 ML VIAL IVP ONE ×2 (16:07→21:26)
[2020-08-26] MEDS ORDERED: 0.9 % Sodium Chloride 1,000 ML IVC ONE ×2 (16:07→18:20)
[2020-08-26 16:59] LABS: Basophils % 0.2 %; Eosinophils % 0.2 %; Hematocrit 33.1 % (35.3-44.9); Hemoglobin 10.9 g/dL (11.5-15.4); Immature Granulocytes % 0.3 % (0-4); Lymphocytes # 1.3 K/mcL (0.6-4.6); Lymphocytes % 20.6 %; Mean Corpuscular HGB Conc 32.9 g/dL (31.6-35.5); Mean Corpuscular Hemoglobin 29.9 pg (28.0-33.3); Mean Corpuscular Volume 90.7 fL (83.0-100.0); Mean Platelet Volume 9.9 fL (9.4-12.4); Monocytes # 0.4 K/mcL (0.0-1.3); Monocytes % 5.8 %; Neutrophils # 4.7 K/mcL (1.6-8.9); Platelet Count 177 K/mcL (140-400); Red Blood Count 3.65 M/mcL (3.82-4.97); Red Cell Distribution Width 13.2 % (11.5-14.5); Segmented Neutrophils % 72.9 %; White Blood Count 6.4 K/mcL (4.3-11.1)
[2020-08-26 17:24] LABS: BUN/Creatinine Ratio 14 (6-26); Blood Urea Nitrogen 38 mg/dL (8-23); Calcium 8.5 mg/dL (8.6-10.3); Carbon Dioxide 17 mEq/L (23-29); Chloride 98 mEq/L (98-107); Glucose 393 mg/dL (70-105); Lipase 21 Units/L (11-82); Osmolality,Calculated 293 (280-300); Sodium 129 mEq/L (136-145); eGFR For African Americans 21 (> 60); eGFR For Non-African Americans 17 (> 60)
[2020-08-26 17:25] LABS: Troponin I < 0.03 ng/mL (< 0.04)
[2020-08-26 17:56] LABS: Adenovirus Not Detected (Not Detect); Bordetella Pertussis Not Detected (Not Detect); Chlamydophila pneumoniae Not Detected (Not Detect); Coronavirus 229E Not Detected (Not Detect); Coronavirus HKU1 Not Detected (Not Detect); Coronavirus NL63 Not Detected (Not Detect); Coronavirus OC43 Not Detected (Not Detect); Human Metapneumovirus Not Detected (Not Detect); Human Rhinovirus/Enterovirus Not Detected (Not Detect); Influenza A Subtype 2009 H1 Not Detected (Not Detect); Influenza B Not Detected (Not Detect); Mycoplasma pneumoniae Not Detected (Not Detect); Parainfluenza Virus 1 Not Detected (Not Detect); Parainfluenza Virus 2 Not Detected (Not Detect); Parainfluenza Virus 3 Not Detected (Not Detect); Parainfluenza Virus 4 Not Detected (Not Detect); Respiratory Syncytial Virus Not Detected (Not Detect); SARS-CoV-2 DETECTED (Not Detect)
[2020-08-26] MEDS ORDERED: Insulin Human Regular 100 UNIT in 0.9 % Sodium Chloride 100 ML IVC SCH ×2 (18:30→21:30)
[2020-08-26 19:43] LABS: Bacteria,Urine Few per hpf (None-Few); Bilirubin,Urine Negative (Negative); Blood,Urine Small (Negative); Clarity,Urine Turbid (Clear); Color,Urine Light-Yellow (Yellow); Glucose,Urine (UA) >=1000 mg/dL (Normal); Hyaline Casts,Urine Few per lpf (None Seen); Ketones,Urine Negative (Negative); Leukocyte Esterase,Urine Moderate (Negative); Mucus,Urine Few per lpf (None-Few); Nitrite,Urine Positive (Negative); Protein,Urine 200 mg/dL (Neg-Trace); RBC,Urine 0-3 per hpf (0-3); Specific Gravity,Urine 1.018 (1.010-1.025); Squamous Epithelial Cell,Urine Few per hpf (None-Few); Urobilinogen,Urine Normal (Normal); WBC,Urine 15-30 per hpf (0-3)
[2020-08-26] MEDS ORDERED: *HR* Dextrose 50 % in Water (Vial) 50 ML VIAL IVP PRN (19:48)
[2020-08-26] MEDS ORDERED: D5% in 0.45% NACL w KCl 20 MEQ/1,000 ML MLS IVC PRN (19:48)
[2020-08-26] MEDS ORDERED: D5% in 0.45% NACL 1,000 ML IVC PRN (19:48)
[2020-08-26] MEDS ORDERED: Insulin Regular, Human 100 UNIT/ML IV PRN (19:48)
[2020-08-26] MEDS ORDERED: 0.9 % Sodium Chloride 1,000 ML IVC SCH (20:00)
[2020-08-26] MEDS ORDERED: Insulin Human Regular 5 UNIT in 0.9 % Sodium Chloride 10 ML IV ONE (20:30)
[2020-08-26] MEDS: Pantoprazole 40 MG VIAL IVP SCH (21:27)
[2020-08-26] MEDS: *HR* Heparin 5,000 UNIT/ML VIAL SQ SCH (21:36)
[2020-08-26] MEDS ORDERED: cefTRIAXone 1,000 MG in 0.9 % Sodium Chloride Mini Bag 100 ML IVPB SCH (23:00)
[2020-08-27 00:15] LABS: VBG HCO3 19 mEq/L (21-27); VBG PCO2 41 mmHg (41-51); VBG PH 7.27 pH Units (7.32-7.42); VBG PO2 55 mmHg (25-50)
[2020-08-27 00:36] LABS: Calcium 7.5 mg/dL (8.6-10.3)
[2020-08-27] MEDS ORDERED: Insulin DETEMIR 100 UNIT/ML X5UNITS SUBQ SCH (01:00)
[2020-08-27 02:01] LABS: VBG HCO3 15 mEq/L (21-27); VBG PCO2 34 mmHg (41-51); VBG PH 7.24 pH Units (7.32-7.42); VBG PO2 84 mmHg (25-50)
[2020-08-27 04:28] LABS: Calcium 7.7 mg/dL (8.6-10.3); Potassium 4.3 mEq/L (3.5-5.1)
[2020-08-27] MEDS ORDERED: D5% in Water 1,000 ML IVC PRN (05:56)
[2020-08-27] MEDS: *HR* Heparin 5,000 UNIT/ML VIAL SQ SCH ×3 (06:17→20:37)
[2020-08-27] MEDS: Pantoprazole 40 MG VIAL IVP SCH (09:01)
[2020-08-27] MEDS: Insulin LISPRO 300 UNITS/3 ML VIAL SUBQ SCH ×3 (09:01→18:24)
[2020-08-27] MEDS ORDERED: Ondansetron 4 MG/2 ML VIAL IVP PRN (10:36)
[2020-08-27 15:00] LABS: Calcium 8.1 mg/dL (8.6-10.3)
[2020-08-27] MEDS ORDERED: Nitroglycerin 0.4 MG TAB.SUBL SL PRN (15:30)
[2020-08-27] MEDS ORDERED: NON-FORMULARY MEDICATION 1 EACH EACH (Ondansetron Hcl [Zofran] 4 MG) SL PRN (15:30)
[2020-08-27] MEDS ORDERED: Ondansetron 4 MG/2 ML VIAL IVP ONE (19:01)
[2020-08-27] MEDS: Gabapentin 100 MG CAPSULE PO SCH (20:37)
[2020-08-27] MEDS: Carbidopa/Levodopa 25/100 TABLET PO SCH (20:37)
[2020-08-27] MEDS ORDERED: Furosemide 20 MG TABLET PO SCH (21:00)
[2020-08-27] MEDS: Insulin DETEMIR 100 UNIT/ML X5UNITS SUBQ SCH (21:24)
[2020-08-27 21:49] LABS: VBG HCO3 17 mEq/L (21-27); VBG PCO2 26 mmHg (41-51); VBG PH 7.42 pH Units (7.32-7.42); VBG PO2 197 mmHg (25-50)
[2020-08-27 22:07] LABS: Calcium 8.1 mg/dL (8.6-10.3); Potassium 4.5 mEq/L (3.5-5.1)
[2020-08-28] MEDS: COLESTIPOL 1 GM PO SCH ×2 (00:58→09:11)
[2020-08-28] MEDS: *HR* Heparin 5,000 UNIT/ML VIAL SQ SCH ×3 (04:45→20:32)
[2020-08-28 04:55] LABS: Basophils % 0.3 %; Eosinophils # 0.1 K/mcL (0.0-0.6); Eosinophils % 2.7 %; Hematocrit 29.9 % (35.3-44.9); Hemoglobin 9.5 g/dL (11.5-15.4); Immature Granulocytes % 0.5 % (0-4); Lymphocytes # 1.2 K/mcL (0.6-4.6); Lymphocytes % 31.8 %; Mean Corpuscular HGB Conc 31.8 g/dL (31.6-35.5); Mean Corpuscular Hemoglobin 29.9 pg (28.0-33.3); Mean Platelet Volume 9.6 fL (9.4-12.4); Monocytes # 0.3 K/mcL (0.0-1.3); Monocytes % 8.3 %; Neutrophils # 2.1 K/mcL (1.6-8.9); Platelet Count 147 K/mcL (140-400); Red Blood Count 3.18 M/mcL (3.82-4.97); Red Cell Distribution Width 13.2 % (11.5-14.5); Segmented Neutrophils % 56.4 %; White Blood Count 3.7 K/mcL (4.3-11.1)
[2020-08-28 05:11] LABS: Calcium 8.3 mg/dL (8.6-10.3); Potassium 3.9 mEq/L (3.5-5.1)
[2020-08-28] MEDS: Insulin LISPRO 300 UNITS/3 ML VIAL SUBQ SCH ×3 (08:24→16:19)
[2020-08-28] MEDS: Isosorbide MONOnitrate (24 HR) 60 MG TAB.ER.24H PO SCH (08:57)
[2020-08-28] MEDS: ARIPiprazole 2 MG TABLET PO SCH (08:57)
[2020-08-28] MEDS: amLODIPine 5 MG TABLET PO SCH (08:57)
[2020-08-28] MEDS: Topiramate 25 MG TABLET PO SCH (08:57)
[2020-08-28] MEDS: Gabapentin 100 MG CAPSULE PO SCH ×2 (08:58→20:32)
[2020-08-28] MEDS: Carbidopa/Levodopa 25/100 TABLET PO SCH ×3 (08:58→20:32)
[2020-08-28] MEDS: Aspirin 81 MG TAB.CHEW PO SCH (08:58)
[2020-08-28] MEDS: Pantoprazole 40 MG VIAL IVP SCH (08:58)
[2020-08-28] MEDS: calcitrioL 0.25 MCG CAPSULE PO SCH (08:58)
[2020-08-28] MEDS: Venlafaxine XR (24 HR) 75 MG CAP.ER.24H PO SCH (08:58)
[2020-08-28] MEDS ORDERED: 0.9 % Sodium Chloride 1,000 ML IVC SCH (11:30)
[2020-08-28] MEDS ORDERED: GI Cocktail 40 ML EACH PO PRN (13:16)
[2020-08-28] MEDS: Insulin DETEMIR 100 UNIT/ML X5UNITS SUBQ SCH (20:31)
[2020-08-29 04:21] LABS: Basophils % 0.5 %; Eosinophils # 0.1 K/mcL (0.0-0.6); Eosinophils % 2.6 %; Hematocrit 30.5 % (35.3-44.9); Hemoglobin 9.5 g/dL (11.5-15.4); Immature Granulocytes % 0.8 % (0-4); Lymphocytes # 1.7 K/mcL (0.6-4.6); Lymphocytes % 44.3 %; Mean Corpuscular HGB Conc 31.1 g/dL (31.6-35.5); Mean Corpuscular Hemoglobin 29.3 pg (28.0-33.3); Mean Corpuscular Volume 94.1 fL (83.0-100.0); Mean Platelet Volume 9.9 fL (9.4-12.4); Monocytes # 0.3 K/mcL (0.0-1.3); Monocytes % 8.6 %; Neutrophils # 1.7 K/mcL (1.6-8.9); Nucleated Red Blood Cells 0.5 /100 WBC (0); Platelet Count 163 K/mcL (140-400); Red Blood Count 3.24 M/mcL (3.82-4.97); Red Cell Distribution Width 13.4 % (11.5-14.5); Segmented Neutrophils % 43.2 %; White Blood Count 3.8 K/mcL (4.3-11.1)
[2020-08-29 04:54] LABS: Calcium 8.1 mg/dL (8.6-10.3); Potassium 3.9 mEq/L (3.5-5.1)
[2020-08-29] MEDS: *HR* Heparin 5,000 UNIT/ML VIAL SQ SCH (05:32)
[2020-08-29] MEDS: Insulin LISPRO 300 UNITS/3 ML VIAL SUBQ SCH ×2 (08:10→12:00)
[2020-08-29] MEDS: calcitrioL 0.25 MCG CAPSULE PO SCH (08:37)
[2020-08-29] MEDS: Gabapentin 100 MG CAPSULE PO SCH (08:37)
[2020-08-29] MEDS: ARIPiprazole 2 MG TABLET PO SCH (08:37)
[2020-08-29] MEDS: Isosorbide MONOnitrate (24 HR) 60 MG TAB.ER.24H PO SCH (08:37)
[2020-08-29] MEDS: Venlafaxine XR (24 HR) 75 MG CAP.ER.24H PO SCH (08:37)
[2020-08-29] MEDS: amLODIPine 5 MG TABLET PO SCH (08:37)
[2020-08-29] MEDS: Aspirin 81 MG TAB.CHEW PO SCH (08:37)
[2020-08-29] MEDS: Carbidopa/Levodopa 25/100 TABLET PO SCH (08:38)
[2020-08-29] MEDS: Topiramate 25 MG TABLET PO SCH (08:38)
[2020-08-29 11:25] VITALS: BP 108/55
== END 2020-08-29 13:15 | disposition home or self-care (01) ==
LOC: EMEROOARM 15:42 → 2NENU 15:42 → SUATTDRO 19:29 → 2NENU 20:10
PROVIDERS: ADMIT Internal Medicine; ATTEND Student in an Organized Health Care Education/Training Program

== ENCOUNTER 2021-03-07 17:35 | Observation (INO) ==
[2021-03-07 18:42] LABS: Basophils % 0.4 %; Eosinophils # 0.1 K/mcL (0.0-0.6); Eosinophils % 2.5 %; Hematocrit 29.2 % (35.3-44.9); Hemoglobin 9.5 g/dL (11.5-15.4); Immature Granulocytes % 0.2 % (0-4); Lymphocytes # 1.8 K/mcL (0.6-4.6); Lymphocytes % 35.2 %; Mean Corpuscular HGB Conc 32.5 g/dL (31.6-35.5); Mean Corpuscular Hemoglobin 29.1 pg (28.0-33.3); Mean Corpuscular Volume 89.6 fL (83.0-100.0); Mean Platelet Volume 10.6 fL (9.4-12.4); Monocytes # 0.3 K/mcL (0.0-1.3); Monocytes % 6.1 %; Neutrophils # 2.8 K/mcL (1.6-8.9); Platelet Count 202 K/mcL (140-400); Red Blood Count 3.26 M/mcL (3.82-4.97); Segmented Neutrophils % 55.6 %; White Blood Count 5.1 K/mcL (4.3-11.1)
[2021-03-07 18:52] LABS: Estimated Average Glucose 438 mg/dl; Hemoglobin A1C 16.9 %
[2021-03-07 19:05] LABS: Alanine Aminotransferase 9 Units/L (7-52); Albumin 3.7 g/dL (3.5-5.7); Albumin/Globulin Ratio 1.2 (1.1-2.2); Alkaline Phosphatase 158 Units/L (34-104); Aspartate Amino Transferase 16 Units/L (13-39); BUN/Creatinine Ratio 17 (6-26); Bilirubin,Total 0.3 mg/dL (0.3-1.0); Blood Urea Nitrogen 48 mg/dL (8-23); Calcium 8.8 mg/dL (8.6-10.3); Carbon Dioxide 17 mEq/L (23-29); Chloride 99 mEq/L (98-107); Glucose 527 mg/dL (70-105); Magnesium 1.9 mg/dL (1.6-2.6); Osmolality,Calculated 296 (280-300); Potassium 5.4 mEq/L (3.5-5.1); Sodium 125 mEq/L (136-145); Total Protein 6.7 g/dL (6.4-8.9); Troponin I < 0.03 ng/mL (< 0.04); eGFR For African Americans 19 (> 60); eGFR For Non-African Americans 16 (> 60)
[2021-03-07] MEDS: 0.9 % Sodium Chloride 1,000 ML IVC SCH ×2 (19:14→20:58)
[2021-03-07 19:30] LABS: Bacteria,Urine Few per hpf (None-Few); Bilirubin,Urine Negative (Negative); Blood,Urine Trace (Negative); Clarity,Urine Clear (Clear); Color,Urine Light-Yellow (Yellow); Glucose,Urine (UA) >=1000 mg/dL (Normal); Ketones,Urine Negative (Negative); Leukocyte Esterase,Urine Large (Negative); Nitrite,Urine Negative (Negative); PH,Urine 6.5 pH Units (5.0-8.0); Protein,Urine 200 mg/dL (Neg-Trace); Specific Gravity,Urine 1.022 (1.010-1.025); Squamous Epithelial Cell,Urine Few per hpf (None-Few); Urobilinogen,Urine Normal (Normal); WBC,Urine 30-50 per hpf (0-3)
[2021-03-07] MEDS ORDERED: cefTRIAXone 1,000 MG in Water for inj. (sterile) 10 ML IVP ONE (19:39)
[2021-03-07] MEDS ORDERED: Ondansetron 4 MG/2 ML VIAL IVP PRN (21:11)
[2021-03-07] MEDS ORDERED: Naloxone 0.4 MG/ML INJ IVP PRN (21:11)
[2021-03-07] MEDS ORDERED: 0.9 % Sodium Chloride 1,000 ML IVC SCH (21:15)
[2021-03-07] MEDS ORDERED: D5% in Water 1,000 ML IVC PRN (21:17)
[2021-03-07] MEDS ORDERED: *HR* Dextrose 50 % in Water (Vial) 50 ML VIAL IVP PRN (21:17)
[2021-03-07] MEDS ORDERED: Dextrose Gel 15 GM/37.5 ML TUBE PO PRN ×2 (21:17)
[2021-03-07 22:41] LABS: Calcium 8.5 mg/dL (8.6-10.3); Potassium 5.5 mEq/L (3.5-5.1)
[2021-03-07] MEDS: Insulin LISPRO 300 UNITS/3 ML VIAL SUBQ SCH (23:24)
[2021-03-07] MEDS: Insulin DETEMIR 100 UNIT/ML X5UNITS SUBQ SCH (23:37)
[2021-03-08] MEDS: Insulin LISPRO 300 UNITS/3 ML VIAL SUBQ SCH ×4 (05:36→15:57)
[2021-03-08] MEDS: *HR* Heparin 5,000 UNIT/ML VIAL SQ SCH ×3 (06:14→20:38)
[2021-03-08] MEDS: cefTRIAXone 1,000 MG in 0.9 % Sodium Chloride Mini Bag 100 ML IVPB SCH (09:49)
[2021-03-08 09:53] LABS: Hematocrit 28.3 % (35.3-44.9); Hemoglobin 9.7 g/dL (11.5-15.4); Mean Corpuscular HGB Conc 34.3 g/dL (31.6-35.5); Mean Corpuscular Hemoglobin 29.7 pg (28.0-33.3); Mean Corpuscular Volume 86.5 fL (83.0-100.0); Mean Platelet Volume 10.3 fL (9.4-12.4); Platelet Count 186 K/mcL (140-400); Red Blood Count 3.27 M/mcL (3.82-4.97); Red Cell Distribution Width 13.2 % (11.5-14.5); White Blood Count 5.8 K/mcL (4.3-11.1)
[2021-03-08 10:12] LABS: Calcium 8.4 mg/dL (8.6-10.3); Potassium 4.5 mEq/L (3.5-5.1)
[2021-03-08] MEDS: Carbidopa/Levodopa 25/100 TABLET PO SCH (14:32)
[2021-03-08] MEDS: ARIPiprazole 2 MG TABLET PO SCH (14:32)
[2021-03-08] MEDS: Insulin DETEMIR 100 UNIT/ML X5UNITS SUBQ SCH (20:38)
[2021-03-09 02:58] LABS: Basophils % 0.6 %; Eosinophils # 0.1 K/mcL (0.0-0.6); Eosinophils % 2.7 %; Hematocrit 28.7 % (35.3-44.9); Hemoglobin 9.8 g/dL (11.5-15.4); Immature Granulocytes % 0.4 % (0-4); Lymphocytes # 2.1 K/mcL (0.6-4.6); Lymphocytes % 44.2 %; Mean Corpuscular HGB Conc 34.1 g/dL (31.6-35.5); Mean Corpuscular Hemoglobin 29.7 pg (28.0-33.3); Mean Platelet Volume 10.1 fL (9.4-12.4); Monocytes # 0.3 K/mcL (0.0-1.3); Monocytes % 5.5 %; Neutrophils # 2.2 K/mcL (1.6-8.9); Platelet Count 199 K/mcL (140-400); Red Cell Distribution Width 13.5 % (11.5-14.5); Segmented Neutrophils % 46.6 %; White Blood Count 4.8 K/mcL (4.3-11.1)
[2021-03-09 03:17] LABS: Calcium 8.6 mg/dL (8.6-10.3); Potassium 4.9 mEq/L (3.5-5.1)
[2021-03-09] MEDS: *HR* Heparin 5,000 UNIT/ML VIAL SQ SCH (05:56)
[2021-03-09] MEDS: Insulin LISPRO 300 UNITS/3 ML VIAL SUBQ SCH ×2 (07:54→11:53)
[2021-03-09] MEDS: ARIPiprazole 2 MG TABLET PO SCH (07:54)
[2021-03-09] MEDS: cefTRIAXone 1,000 MG in 0.9 % Sodium Chloride Mini Bag 100 ML IVPB SCH (07:55)
[2021-03-09] MEDS: Carbidopa/Levodopa 25/100 TABLET PO SCH (07:55)
[2021-03-09] MEDS ORDERED: Aspirin 81 MG TAB.CHEW PO SCH (09:00)
[2021-03-09] MEDS ORDERED: Venlafaxine XR (24 HR) 75 MG CAP.ER.24H PO SCH (09:00)
[2021-03-09] MEDS ORDERED: amLODIPine 5 MG TABLET PO SCH (09:00)
[2021-03-09] MEDS ORDERED: Topiramate 25 MG TABLET PO SCH (09:00)
[2021-03-09 11:40] VITALS: BP 145/72; PULSE 52; TEMP 97.8; O2SAT 98
== END 2021-03-09 12:32 | disposition home health service (06) ==
LOC: 2ANU 17:35 → EMEROOARM 17:35 → SUATTDRO 21:00 → 2ANU 21:37
PROVIDERS: ADMIT Student in an Organized Health Care Education/Training Program; ATTEND Family Medicine